=== PATIENT | female | born 1995 | race Caucasian/White ===

== ENCOUNTER 2018-10-17 12:15 | Emergency (ER) | payer OTHER ==
[~2018-10-17] VITALS: Ht 162.6 cm; Wt 50.0 kg
[2018-10-17 12:59] LABS: BASO % 0.3 % (0.0-1.0); EOS # 0.3 10^3/uL (0.0-0.50); EOS % 3.2 % (0.0-3.0); HEMATOCRIT 40.6 % (36.0-47.0); HEMOGLOBIN 13.5 g/dl (12.0-15.5); LYMPH % 22.9 % (24.0-44.0); MEAN CORPUSCULAR HEMOGLOBIN 29.6 pg (27.0-33.0); MEAN CORPUSCULAR HGB CONC 33.3 g/dl (32.0-36.5); MONO # 0.6 10^3/uL (0.0-0.8); MONO % 7.2 % (0.0-5.0); NEUTROPHILS # 5.8 10^3/uL (1.8-7.7); NEUTROPHILS % 66.2 % (36.0-66.0); PLATELET COUNT, AUTOMATED 241 10^3/uL (150-450); RED BLOOD COUNT 4.56 10^6/uL (4.00-5.40); WHITE BLOOD COUNT 8.7 10^3/uL (4.0-10.0)
[2018-10-17 13:43] LABS: BLOOD UREA NITROGEN 10 MG/DL (7-18); CALCIUM LEVEL 9.3 MG/DL (8.5-10.1); CARBON DIOXIDE LEVEL 27 MEQ/L (21-32); CHLORIDE LEVEL 109 MEQ/L (98-107); CREATININE FOR GFR 0.72 MG/DL (0.55-1.30); GLOMERULAR FILTRATION RATE > 60.0 (>60); GLUCOSE, FASTING 91 MG/DL (70-100); HCG, SERUM QUANTITATIVE 1680 MIU/ML; POTASSIUM SERUM 4.5 MEQ/L (3.5-5.1); SODIUM LEVEL 141 MEQ/L (136-145)
[2018-10-17 15:58] VITALS: BP 96/54
--- NOTE | 2018-10-19 16:32 | REP ---
First trimester, stat ultrasound for vaginal bleeding: The study is performed with transabdominal, endovaginal and Doppler ultrasound assessment: The bladder is not optimally distended. The uterus is anteverted and normal size measuring 8.5 x 4.7 x 6.2 cm. There is an intrauterine gestational sac containing a yolk sac but no pole, in the lower uterine segment just above the internal cervical os. This may represent spontaneous in progress. Right ovary: Right ovary is normal size measuring 2.6 x 2.0 x 3.9 cm. There is no dominant mass or cyst. There is vascular flow with the Doppler resistive index in the parenchymal arteries measuring 0.45. Left ovary: The left ovary is normal size measuring 2.6 x 1.7 x 2.4 cm. There is no dominant mass or cyst. There is vascular flow with the Doppler resistive index and the parenchymal arteries measuring 0.49. Impression: Intrauterine gestational sac with a yolk sac but no pole in the lower uterine segment just above this loss. The gestational sac in this location may represent spontaneous in progress. Follow-up is recommended. Electronically Signed by Antoine Longoria MD 10/17/2018 03:08 P
== END 2018-10-17 16:00 | disposition home or self-care (01) ==
LOC: M ED 12:15
DX: O20.0 Threatened abortion (principal); Z72.0 Tobacco use

== ENCOUNTER → 2018-10-19 | Outpatient (CLI) | payer OTHER | LOC: M LRY 12:41 | PROVIDERS: ATTEND Obstetrics & Gynecology | DX: O20.0 Threatened abortion (principal) ==

== ENCOUNTER → 2018-10-26 | Outpatient (CLI) | payer OTHER | LOC: M LRY 09:21 | PROVIDERS: ATTEND Advanced Practice Midwife | DX: O03.9 Complete or unspecified spontaneous abortion without complication (principal); Z3A.00 Weeks of gestation of pregnancy not specified ==

== ENCOUNTER → 2018-11-03 | Outpatient (CLI) | payer OTHER ==
[2018-11-03 15:02] LABS: FREE T4 0.95 NG/DL (0.76-1.46); THYROID STIMULATING HORMONE 0.758 uIU/ML (0.358-3.740)
== END ==
LOC: M LRY 09:38
PROVIDERS: ATTEND Advanced Practice Midwife
DX: O03.9 Complete or unspecified spontaneous abortion without complication (principal)

== ENCOUNTER → 2018-12-16 | Outpatient (CLI) | payer OTHER ==
[2018-12-16 17:51] LABS: BASO % 0.5 % (0.0-1.0); EOS # 0.2 10^3/uL (0.0-0.5); EOS % 3.5 % (0.0-3.0); HEMATOCRIT 38.8 % (36.0-47.0); HEMOGLOBIN 12.7 g/dl (12.0-15.5); LYMPH % 33.2 % (24.0-44.0); MEAN CORPUSCULAR HEMOGLOBIN 29.7 pg (27.0-33.0); MEAN CORPUSCULAR HGB CONC 32.7 g/dl (32.0-36.5); MEAN CORPUSCULAR VOLUME 90.9 fl (80.0-96.0); MONO # 0.4 10^3/uL (0.0-0.8); MONO % 7.3 % (0.0-5.0); NEUTROPHILS # 3.3 10^3/uL (1.5-8.5); NEUTROPHILS % 55.3 % (36.0-66.0); PLATELET COUNT, AUTOMATED 230 10^3/uL (150-450); RED BLOOD COUNT 4.27 10^6/uL (4.00-5.40)
[2018-12-16 18:04] LABS: ALBUMIN 4.4 GM/DL (3.2-5.2); ALT/SGPT 21 U/L (12-78); BILIRUBIN,TOTAL 0.4 MG/DL (0.2-1.0); BLOOD UREA NITROGEN 9 MG/DL (7-18); CALCIUM LEVEL 9.5 MG/DL (8.5-10.1); CARBON DIOXIDE LEVEL 28 MEQ/L (21-32); CHLORIDE LEVEL 106 MEQ/L (98-107); CREATININE FOR GFR 0.73 MG/DL (0.55-1.30); FREE T4 0.94 NG/DL (0.76-1.46); GLOMERULAR FILTRATION RATE > 60.0 (>60); GLUCOSE, FASTING 83 MG/DL (70-100); POTASSIUM SERUM 3.9 MEQ/L (3.5-5.1); SODIUM LEVEL 142 MEQ/L (136-145); THYROID STIMULATING HORMONE 0.819 uIU/ML (0.358-3.740); TOTAL 25(OH) VITAMIN D 34.5 NG/ML (30.0-100.0); TOTAL PROTEIN 7.5 GM/DL (6.4-8.2)
== END ==
LOC: M LRY 12:41
PROVIDERS: ATTEND Physician Assistant
DX: R53.83 Other fatigue (principal)

== ENCOUNTER → 2019-12-26 | Outpatient (CLI) | payer OTHER ==
[2019-12-26 18:41] LABS: FREE T4 1.01 NG/DL (0.76-1.46); THYROID PEROXIDASE ANTIBODY 32.3 U/ML (<60.0); THYROID STIMULATING HORMONE 0.752 uIU/ML (0.358-3.740)
== END ==
LOC: M PLALAB 14:20
PROVIDERS: ATTEND Nurse Practitioner Family
DX: E03.9 Hypothyroidism, unspecified (principal)

== ENCOUNTER → 2020-04-10 | Outpatient (CLI) | payer OTHER ==
[2020-04-10 14:28] LABS: FREE T4 0.84 NG/DL (0.76-1.46); THYROID STIMULATING HORMONE 1.14 uIU/ML (0.358-3.740)
== END ==
LOC: M PLALAB 09:13
PROVIDERS: ATTEND Nurse Practitioner Family
DX: E03.9 Hypothyroidism, unspecified (principal)

== ENCOUNTER 2021-01-24 15:12 | Emergency (ER) | payer OTHER ==
[~2021-01-24] VITALS: Ht 162.6 cm; Wt 49.1 kg
[2021-01-24 15:12] VITALS: BP 106/62
--- OUTSIDE RECORDS SUMMARY | 2021-01-24 15:16 | CCD | Continuity of Care Document ---
Author Author Monie JARVIS Organization Unknown Address [place] [address] Phone [phone] Care Team Providers Care Cloth Reeler Name Role Phone Sade Wade D.O. AUTM [phone] Torie Alfred M.D. AUTM [phone] Problems Active Problems Provider Date Cigarette smoker RENETTA Chairez Onset: 12/15/2018 Anxiety RENETTA Chairez Onset: 05/17/2020 Social History Type Date Description Comments Sex Unknown ETOH Use Denies alcohol use Recreational Drug Use Denies Drug Use Tobacco Use Start: Unknown End: Unknown Patient is a former smoker Smoking Status Reviewed: 06/20/20 Patient is a former smoker Exercise Type/Frequency Walks daily Sun Exposure Does not use sunscreen Seat Belt/Car Seat Always uses seat belt Allergies, Adverse Reactions, Alerts Description No Known Drug Allergies Medications Active Medications SIG Qnty Indications Ordering Provide r Date Pantoprazole Sodium 40mg Tablets D R 1 by mouth every day 90tabs K21.9 Radha MoncadaOAngeline 12/11 Meclizine HCL 25mg Tablets one tablet by mouth every 8 hours for dizziness as needed 42tabs H81.399 Sade Wade D.O. 12/11/2020 Alprazolam 0.25mg Tablets take 1 tablet by mouth daily as needed for anxiety istop [id number] 14tabs F41.1 Sade Abraham D.O. 05/17/2020 Immunizations Description No Information Available Vital Signs Date Vital Result Comment 12/11/2020 2:46pm BP Systolic 116 mmHg BP Diastolic 78 mmHg Height 64.1 inches 5'4.10" Weight 108.00 lb BMI (Body Mass Index) 18.5 kg/m2 Heart Rate 78 /min Respiratory Rate 18 /min Body Temperature 98.2 F O2 % BldC Oximetry 98 % [place] Body Weight 120 lb 06/20/2020 3:54pm BP Systolic 112 mmHg BP Diastolic 58 mmHg Height 64.1 inches 5'4.10" Weight 107.12 lb BMI (Body Mass Index) 18.3 kg/m2 Heart Rate 84 /min Respiratory Rate 18 /min Body Temperature 98.3 F O2 % BldC Oximetry 98 % [place] Body Weight 120 lb Results Description No Information Available Procedures Date Code Description Status 12/11/2020 12648 Office/Outpatient Established Lo w MDM 20-29 Min Completed 06/20/2020 42944 Preventive Visit Est 18-39 Yrs C ompleted Medical Devices Description No Information Available Encounters Type Date Location Provider Dx Diagnosis Office Visit 12/11/2020 2:40p [facility] RENETTA Villar K21.9 Gastro-esophageal reflux dis ease without esophagitis H81.399 Other peripheral vertigo, un specified ear Z13.29 Encounter for screening for oth suspected endocrine disorder Office Visit 06/20/2020 4:00p [facility] Sade Wade D.O. Z00.00 Encntr for general adult med ical exam w/o abnormal findings F41.1 Generalized anxiety disorder Z87.891 Personal history of nicotine dependence Z13.29 Encounter for screening for oth suspected endocrine disorder Z13.0 Encntr screen for dis [facility] Ass[facility] Date Code Description Provider 12/11/2020 K21.9 Gastro-esophageal reflux disease without esophagitis RENETTA Villar 12/11/2020 H81.399 Other peripheral vertigo, unspec ified ear RENETTA Villar 12/11/2020 Z13.29 Encounter for screen ing for other suspected endocrine disorder RENETTA Villar 06/20/2020 Z00.00 Encounter for genera l adult medical examination without abnormal findings Sade Wade D.O. 06/20/2020 F41.1 Generalized anxiety disorder Maryanne evelyn MendesMario-Jarad, D.O. 06/20/2020 Z87.891 Personal history of nicotine dep endence Sade Wade D.O. 06/20/2020 Z13.29 Encounter for screen ing for other suspected endocrine disorder Sade Wade D.O. 06/20/2020 Z13.0 Encounter for screen ing for diseases of the blood and blood- forming organs and certain disorders involving the immune mechanism Sade Wade D.O. Plan of Treatment Future Appointment(s):* 02/11/2021 10:20 am - RENETTA Villar at [facility] 12/11/2020 - RENETTA Villar* K21.9 Gastro-esophageal reflux disease without esophagitis* New Medication:* Pantoprazole Sodium 40 mg - 1 by mouth every day * Comments:* Work on dietary changes as we discussed as those are factors that can cause GERD. Please take Pantoprazole once a day on an empty stomach. * H81.399 Other peripheral vertigo, unspecified ear* New Medication:* Meclizine HCL 25 mg - one tablet by mouth every 8 hours for dizziness as needed * Comments:* Take Meclizine as needed for dizziness. * Z13.29 Encounter for screening for other suspected endocrine disorder* New Labs:* Basic Metabolic Profile, Scheduled: 12/11/20 * CBC With Differential, Scheduled: 12/11/20 * FT4&TSH Panel, Scheduled: 12/11/20 * Liver Profile, Scheduled: 12/11/20 * Vitamin D 25-Hydroxy, Scheduled: 12/11/20 * Comments:* Prior history of abnormal thyroid levels and will recheck levels to day to see if we need to start medications. Functional Status Description No Information Available Mental Status Description No Information Available Referrals Description No Information Available
--- OUTSIDE RECORDS SUMMARY | 2021-01-24 15:16 | CCD | Continuity of Care Document ---
Author Author Monie JARVIS Organization [place] [address] Phone [phone] Care Team Providers Care Starting Gate Driver Name Role Phone Sade Wade D.O. AUTM Torie Alfred M.D. AUTM [phone] Problems Active Problems Provider Date Cigarette smoker [...] mouth daily as needed for anxiety istop [id number] 14tabs F41.1 Sade Abraham D.O. 05/17/2020 Immunizations Description No Information Available Vital Signs Date Vital Result Comment 12/11/2020 2:46pm BP Systolic 116 mmHg BP Diastolic 78 mmHg Height 64.1 inches 5'4.10" Weight 108.00 lb BMI (Body Mass Index) 18.5 kg/m2 Heart Rate 78 /min Respiratory Rate 18 /min Body Temperature 98.2 F O2 % BldC Oximetry 98 % [place] Body Weight 120 lb 06/20/2020 3:54pm BP Systolic 112 mmHg BP Diastolic 58 mmHg Height 64.1 inches 5'4.10" Weight 107.12 lb BMI (Body Mass Index) 18.3 kg/m2 Heart Rate 84 /min Respiratory Rate 18 /min Body Temperature 98.3 F O2 % BldC Oximetry 98 % [place] Body Weight 120 lb Results Description No Information Available Procedures Date Code Description Status 06/20/2020 47300 Preventive Visit Est 18-39 Yrs C ompleted Medical Devices Description No Information Available Encounters Type Date Location Provider Dx Diagnosis Office Visit 06/20/2020 4:00p [facility] Sade Wade D.O. Z00.00 Encntr for general adult med ical exam w/o abnormal findings F41.1 Generalized anxiety disorder Z87.891 Personal history of nicotine dependence Z13.29 Encounter for screening for oth suspected endocrine disorder Z13.0 Encntr screen for dis of the bld/bld-form org/immun mechnsm Assessments Date Code Description Provider 12/11/2020 K21.9 Gastro-esophageal reflux disease without esophagitis RENETTA Villar 12/11/2020 H81.399 Other peripheral vertigo, unspec ified ear RENETTA Villar 12/11/2020 Z13.29 Encounter for screen ing for other suspected endocrine disorder RENTETA Villar 06/20/2020 Z00.00 Encounter for genera l adult medical examination without abnormal findings Sade Wade D.O. 06/20/2020 F41.1 Generalized anxiety disorder Maryanne evelyn Wade D.O. 06/20/2020 Z87.891 Personal history of nicotine dep endence Sade Wade D.O. 06/20/2020 Z13.29 Encounter for screen ing for other suspected endocrine disorder Sade Wade D.O. 06/20/2020 Z13.0 Encounter for screen ing for diseases of the blood and blood- forming organs and certain disorders involving the immune mechanism Sade Wade D.O. Plan of Treatment Future Appointment(s):* 02/11/2021 10:20 am - RENETTA Villar at [facility] 12/11/2020 - RENETTA Villar* K21.9 Gastro-esophageal reflux disease without esophagitis* New Medication:* Pantoprazole Sodium 40 mg - 1 by mouth every day * H81.399 Other peripheral vertigo, unspecified ear* New Medication:* Meclizine HCL 25 mg - one tablet by mouth every 8 hours for dizziness as needed * Z13.29 Encounter for screening for other suspected endocrine disorder* New Labs:* Basic Metabolic Profile, Scheduled: 12/11/20 * CBC With Differential, Scheduled: 12/11/20 * FT4&TSH Panel, Scheduled: 12/11/20 * Liver Profile, Scheduled: 12/11/20 * Vitamin D 25-Hydroxy, Scheduled: 12/11/20 Functional Status Description No Information Available Mental Status Description No Information Available Referrals Description No Information Available
--- OUTSIDE RECORDS SUMMARY | 2021-01-24 15:17 | CCD ---
Author Author [facility] Organization [facility] Address Unknown Phone Unavailable Care Team Providers Care Sugar Laboratory Assistant Name Role Phone MATTIE, B ELMO EXHIBIT DESIGNER Unavailable Unavailable MATTIE, B ELMO EXHIBIT DESIGNER Unavailable Unavailable MATTIE, B ELMO EXHIBIT DESIGNER Unavailable Unavailable MATTIE, B ELMO EXHIBIT DESIGNER Unavailable Unavailable MATTIE, B ELMO EXHIBIT DESIGNER Unavailable Unavailable MATTIE, B ELMO EXHIBIT DESIGNER Unavailable Unavailable MATTIE, B ELMO EXHIBIT DESIGNER Unavailable Unavailable MATTIE, B ELMO EXHIBIT DESIGNER Unavailable Unavailable MATTIE, B ELMO EXHIBIT DESIGNER Unavailable Unavailable MATTIE, B ELMO EXHIBIT DESIGNER Unavailable Unavailable MATTIE, B ELMO EXHIBIT DESIGNER Unavailable Unavailable MATTIE, B ELMO EXHIBIT DESIGNER Unavailable Unavailable MATTIE, B ELMO EXHIBIT DESIGNER Unavailable Unavailable MATTIE, B ELMO EXHIBIT DESIGNER Unavailable Unavailable MATTIE, B ELMO EXHIBIT DESIGNER Unavailable Unavailable MATTIE, B ELMO EXHIBIT DESIGNER Unavailable Unavailable MATTIE, B ELMO EXHIBIT DESIGNER Unavailable Unavailable MATTIE, B ELMO EXHIBIT DESIGNER Unavailable Unavailable MATTIE, B ELMO EXHIBIT DESIGNER Unavailable Unavailable MATTIE, B ELMO EXHIBIT DESIGNER Unavailable Unavailable MATTIE, B ELMO EXHIBIT DESIGNER Unavailable Unavailable MATTIE, B ELMO EXHIBIT DESIGNER Unavailable Unavailable MATTIE, B ELMO EXHIBIT DESIGNER Unavailable Unavailable MATTIE, B ELMO EXHIBIT DESIGNER Unavailable Unavailable MATTIE, B ELMO EXHIBIT DESIGNER Unavailable Unavailable MATTIE, B ELMO EXHIBIT DESIGNER Unavailable Unavailable MATTIE, B ELMO EXHIBIT DESIGNER Unavailable Unavailable MATTIE, B ELMO EXHIBIT DESIGNER Unavailable Unavailable MATTIE, B ELMO EXHIBIT DESIGNER Unavailable Unavailable MATTIE, B ELMO EXHIBIT DESIGNER Unavailable Unavailable MATTIE, B ELMO EXHIBIT DESIGNER Unavailable Unavailable MATTIE, B ELMO EXHIBIT DESIGNER Unavailable Unavailable MATTIE, B ELMO EXHIBIT DESIGNER Unavailable Unavailable MATTIE, B ELMO EXHIBIT DESIGNER Unavailable Unavailable MATTIE, B ELMO EXHIBIT DESIGNER Unavailable Unavailable MATTIE, B ELMO EXHIBIT DESIGNER Unavailable Unavailable MATTIE, B ELMO EXHIBIT DESIGNER Unavailable Unavailable MATTIE, B ELMO EXHIBIT DESIGNER Unavailable Unavailable MATTIE, B ELMO EXHIBIT DESIGNER Unavailable Unavailable MATTIE, B ELMO EXHIBIT DESIGNER Unavailable Unavailable MATTIE, B ELMO EXHIBIT DESIGNER Unavailable Unavailable MATTIE, B ELMO EXHIBIT DESIGNER Unavailable Unavailable MATTIE, B ELMO EXHIBIT DESIGNER Unavailable Unavailable MATTIE, B ELMO EXHIBIT DESIGNER Unavailable Unavailable MATTIE, B ELMO EXHIBIT DESIGNER Unavailable Unavailable MATTIE, B ELMO EXHIBIT DESIGNER Unavailable Unavailable MATTIE, B ELMO EXHIBIT DESIGNER Unavailable Unavailable MATTIE, B ELMO EXHIBIT DESIGNER Unavailable Unavailable MATTIE, B ELMO EXHIBIT DESIGNER Unavailable Unavailable MATTIE, B ELMO EXHIBIT DESIGNER Unavailable Unavailable MATTIE, B ELMO EXHIBIT DESIGNER Unavailable Unavailable MATTIE, B ELMO EXHIBIT DESIGNER Unavailable Unavailable MATTIE, B ELMO EXHIBIT DESIGNER Unavailable Unavailable MATTIE, B ELMO EXHIBIT DESIGNER Unavailable Unavailable MATTIE, B ELMO EXHIBIT DESIGNER Unavailable Unavailable MATTIE, B ELMO EXHIBIT DESIGNER Unavailable Unavailable MATTIE, B ELMO EXHIBIT DESIGNER Unavailable Unavailable MATTIE, B ELMO EXHIBIT DESIGNER Unavailable Unavailable MATTIE, B ELMO EXHIBIT DESIGNER Unavailable Unavailable MATTIE, B ELMO EXHIBIT DESIGNER Unavailable Unavailable MATTIE, B ELMO EXHIBIT DESIGNER Unavailable Unavailable MATTIE, B ELMO EXHIBIT DESIGNER Unavailable Unavailable LATRICE-EMIL, MARCOS DO Unavailable Unavailable LATRICE-EMIL, MARCOS DO Unavailable Unavailable LATRICE-EMIL, MARCOS DO Unavailable Unavailable LATRICE-EMIL, MARCOS DO Unavailable Unavailable LATRICE-EMIL, MARCOS DO Unavailable Unavailable LATRICE-EMIL, MARCOS DO Unavailable Unavailable LATRICE-EMIL, MARCOS DO Unavailable Unavailable LATRICE-EMIL, MARCOS DO Unavailable Unavailable LATRICE-EMIL, MARCOS DO Unavailable Unavailable LATRICE-EMIL, MARCOS DO Unavailable Unavailable LATRICE-EMIL, MARCOS DO Unavailable Unavailable LATRICE-EMIL, MARCOS DO Unavailable Unavailable LATRICE-EMIL, MARCOS DO Unavailable Unavailable LATRICE-EMIL, MARCOS DO Unavailable Unavailable LATRICE-EMIL, MARCOS DO Unavailable Unavailable LATRICE-EMIL, MARCOS DO Unavailable Unavailable LATRICE-EMIL, MARCOS DO Unavailable Unavailable LATRICE-EMIL, MARCOS DO Unavailable Unavailable LATRICE-EMIL, MARCOS DO Unavailable Unavailable LATRICE-EMIL, MARCOS DO Unavailable Unavailable LATRICE-EMIL, MARCOS DO Unavailable Unavailable LATRICE-EMIL, MARCOS DO Unavailable Unavailable LATRICE-EMIL, MARCOS DO Unavailable Unavailable LATRICE-EMIL, MARCOS DO Unavailable Unavailable LATRICE-EMIL, MARCOS DO Unavailable Unavailable LATRICE-EMIL, MARCOS DO Unavailable Unavailable LATRICE-EMIL, MARCOS DO Unavailable Unavailable LATRICE-EMIL, MARCOS DO Unavailable Unavailable LATRICE-EMIL, MARCOS DO Unavailable Unavailable LATRICE-EMIL, MARCOS DO Unavailable Unavailable LATRICE-EMIL, MARCOS DO Unavailable Unavailable LATRICE-EMIL, MARCOS DO Unavailable Unavailable LATRICE-EMIL, MARCOS DO Unavailable Unavailable LATRICE-EMIL, MARCOS DO Unavailable Unavailable LATRICE-EMIL, MARCOS DO Unavailable Unavailable LATRICE-EMIL, MARCOS DO Unavailable Unavailable LATRICE-EMIL, MARCOS DO Unavailable Unavailable LATRICE-EMIL, MARCOS DO Unavailable Unavailable LATRICE-EMIL, MARCOS DO Unavailable Unavailable LATRICE-EMIL, MARCOS DO Unavailable Unavailable LATRICE-EMIL, MARCOS DO Unavailable Unavailable LATRICE-EMIL, MARCOS DO Unavailable Unavailable LATRICE-EMIL, MARCOS DO Unavailable Unavailable LATRICE-EMIL, MARCOS DO Unavailable Unavailable LATRICE-EMIL, MARCOS DO Unavailable Unavailable LATRICE-EMIL, MARCOS DO Unavailable Unavailable LATRICE-EMIL, MARCOS DO Unavailable Unavailable LATRICE-EMIL, MARCOS DO Unavailable Unavailable LATRICE-EMIL, MARCOS DO Unavailable Unavailable LATRICE-EMIL, MARCOS DO Unavailable Unavailable LATRICE-EMIL, MARCOS DO Unavailable Unavailable LATRICE-EMIL, MARCOS DO Unavailable Unavailable LATRICE-EMIL, MARCOS DO Unavailable Unavailable LATRICE-EMIL, MARCOS DO Unavailable Unavailable LATRICE-EMIL, MARCOS DO Unavailable Unavailable LATRICE-EMIL, MARCOS DO Unavailable Unavailable LATRICE-EMIL, MARCOS DO Unavailable Unavailable LATRICE-EMIL, MARCOS DO Unavailable Unavailable LATRICE-EMIL, MARCOS DO Unavailable Unavailable LATRICE-EMIL, MARCOS DO Unavailable Unavailable LATRICE-EMIL, MARCOS DO Unavailable Unavailable LATRICE-EMIL, MARCOS DO Unavailable Unavailable LATRICE-EMIL, MARCOS DO Unavailable Unavailable LATRICE-EMIL, MARCOS DO Unavailable Unavailable LATRICE-EMIL, MARCOS DO Unavailable Unavailable LATRICE-EMIL, MARCOS DO Unavailable Unavailable LATRICE-EMIL, MARCOS DO Unavailable Unavailable LATRICE-EMIL, MARCOS DO Unavailable Unavailable LATRICE-EMIL, MARCOS DO Unavailable Unavailable LATRICE-EMIL, MARCOS DO Unavailable Unavailable LATRICE-EMIL, MARCOS DO Unavailable Unavailable LATRICE-EMIL, MARCOS DO Unavailable Unavailable LATRICE-EMIL, MARCOS DO Unavailable Unavailable LATRICE-EMIL, MARCOS DO Unavailable Unavailable LATRICE-EMIL, MARCOS DO Unavailable Unavailable LATRICE-EMIL, MARCOS DO Unavailable Unavailable LATRICE-EMIL, MARCOS DO Unavailable Unavailable LATRICE-EMIL, MARCOS DO Unavailable Unavailable LATRICE-EMIL, MARCOS DO Unavailable Unavailable LATRICE-EMIL, MARCOS DO Unavailable Unavailable LATRICE-EMIL, MARCOS DO Unavailable Unavailable LATRICE-EMIL, MARCOS DO Unavailable Unavailable LATRICE-EMIL, MARCOS DO Unavailable Unavailable LATRICE-EMIL, MARCOS DO Unavailable Unavailable Marina, Gabriele PA Unavailable Unavailable Marina, Gabriele PA Unavailable Unavailable Marina, Gabriele PA Unavailable Unavailable Marina, Gabriele PA Unavailable Unavailable Marina, Gabriele PA Unavailable Unavailable Marina, Gabriele PA Unavailable Unavailable Marina, Gabriele PA Unavailable Unavailable Marina, Gabriele PA Unavailable Unavailable Marina, Gabriele PA Unavailable Unavailable Marina, Gabriele PA Unavailable Unavailable Marina, Gabriele PA Unavailable Unavailable Marina, Gabriele PA Unavailable Unavailable Marina, Gabriele PA Unavailable Unavailable Marina, Gabriele PA Unavailable Unavailable Marina, Gabriele PA Unavailable Unavailable Marina, Gabriele PA Unavailable Unavailable Marina, Gabriele PA Unavailable Unavailable Marina, Gabriele PA Unavailable Unavailable Marina, Gabriele PA Unavailable Unavailable Marina, Gabriele PA Unavailable Unavailable Marina, Gabriele PA Unavailable Unavailable Marina, Gabriele PA Unavailable Unavailable Marina, Gabriele PA Unavailable Unavailable Marina, Gabriele PA Unavailable Unavailable Marina, Gabriele PA Unavailable Unavailable Marina, Gabriele PA Unavailable Unavailable Marina, Gabriele PA Unavailable Unavailable Marina, Gabriele PA Unavailable Unavailable Marina, Gabriele PA Unavailable Unavailable Marina, Gabriele PA Unavailable Unavailable Marina, Gabriele PA Unavailable Unavailable Marina, Gabriele PA Unavailable Unavailable Marina, Gabriele PA Unavailable Unavailable Marina, Gabriele PA Unavailable Unavailable Marina, Gabriele PA Unavailable Unavailable Marina, Gabriele PA Unavailable Unavailable Marina, Gabriele PA Unavailable Unavailable Marina, Gabriele PA Unavailable Unavailable Marina, Gabriele PA Unavailable Unavailable Marina, Gabriele PA Unavailable Unavailable Marina, Gabriele PA Unavailable Unavailable Marina, Gabriele PA Unavailable Unavailable Marina, Gabriele PA Unavailable Unavailable Marina, Gabriele PA Unavailable Unavailable Marina, Gabriele PA Unavailable Unavailable Marina, Gabriele PA Unavailable Unavailable Marina, Gabriele PA Unavailable Unavailable Marina, Gabriele PA Unavailable Unavailable Marina, Gabriele PA Unavailable Unavailable Marina, Gabriele PA Unavailable Unavailable Marina, Gabriele PA Unavailable Unavailable Marina, Gabriele PA Unavailable Unavailable Marina, Gabriele PA Unavailable Unavailable Marina, Gabriele PA Unavailable Unavailable O'kyle, A Richy PA Unavailable Unavailable O'kyle, A Richy PA Unavailable Unavailable O'kyle, A Richy PA Unavailable Unavailable O'kyle, A Richy PA Unavailable Unavailable O'kyle, A Richy PA Unavailable Unavailable O'kyle, A Richy PA Unavailable Unavailable O'kyle, A Richy PA Unavailable Unavailable O'kyle, A Richy PA Unavailable Unavailable O'kyle, A Richy PA Unavailable Unavailable O'kyle, A Richy PA Unavailable Unavailable O'kyle, A Richy PA Unavailable Unavailable O'kyle, A Richy PA Unavailable Unavailable O'kyle, A Richy PA Unavailable Unavailable O'kyle, A Richy PA Unavailable Unavailable O'kyle, A Richy PA Unavailable Unavailable O'kyle, A Richy PA Unavailable Unavailable O'kyle, A Richy PA Unavailable Unavailable O'kyle, A Richy PA Unavailable Unavailable O'kyle, A Richy PA Unavailable Unavailable O'kyle, A Richy PA Unavailable Unavailable O'kyle, A Richy PA Unavailable Unavailable O'kyle, A Richy PA Unavailable Unavailable O'kyle, A Richy PA Unavailable Unavailable O'kyle, A Richy PA Unavailable Unavailable O'kyle, A Richy PA Unavailable Unavailable O'kyle, A Richy PA Unavailable Unavailable O'kyle, A Richy PA Unavailable Unavailable O'kyle, A Richy PA Unavailable Unavailable O'kyle, A Richy PA Unavailable Unavailable O'kyle, A Richy PA Unavailable Unavailable O'kyle, A Richy PA Unavailable Unavailable O'kyle, A Richy PA Unavailable Unavailable O'kyle, A Richy PA Unavailable Unavailable Re-disclosure Warning The records that you are about to access may contain information from federally-assisted alcohol or drug abuse programs. If such information is present, then the following federally mandated warning applies: This information has been disclosed to you from records protected by federal confidentiality rules (42 CFR part 2). The federal rules prohibit you from making any further disclosure of this information unless further disclosure is expressly permitted by the written consent of the person to whom it pertains or as otherwise permitted by 42 CFR part 2. A general authorization for the release of medical or other information is NOT sufficient for this purpose. The Federal rules restrict any use of the information to criminally investigate or prosecute any alcohol or drug abuse patient.The records that you are about to access may contain highly sensitive health information, the redisclosure of which is protected by Article 27-F of the [facility] Public Health law. If you continue you may have access to information: Regarding HIV / AIDS; Provided by facilities licensed or operated by the [facility] Office of Mental Health; or Provided by the [facility] Office for People With Developmental Disabilities. If such information is present, then the following [facility] mandated warning applies: This information has been disclosed to you from confidential records which are protected by state law. State law prohibits you from making any further disclosure of this information without the specific written consent of the person to whom it pertains, or as otherwise permitted by law. Any unauthorized further disclosure in violation of state law may result in a fine or nursing home sentence or both. A general authorization for the release of medical or other information is NOT sufficient authorization for further disc losure. Encounters Encounter Providers Location Date Indications Data Source(s ) Outpatient Attender: Richy JACKSON [facility] 12/11/2020 02:40:00 PM EDT [facility] ([facility]) Outpatient Attender: MARCOS ALBA DO [facility] 06/20/2020 04:00:00 PM EDT [facility] ([facility]) Outpatient Attender: Gabriele JACKSON [facility] 05/17/2020 01:20:00 PM EST [facility] ([facility]) OFFICE OUTPATIENT VISIT 15 MINUTES Attender: ELMO PHELPS NP Physical Therapy 04/23/2020 01:15:00 PM EST [facility] ([facility]) OFFICE OUTPATIENT VISIT 15 MINUTES Attender: ELMO PHELPS NP Physical Therapy 01/10/2020 11:30:00 AM EDT [facility] ([facility]) Outpatient Attender: ELMO PHELPS NP Physical Therapy 01:45:00 PM EDT [facility] ([facility]) Outpatient Attender: Gabriele JACKSON [facility] 12/15/2019 01:40:00 PM EDT [facility] ([facility]) Medications Medication Brand Name Start Date Product Form Dose Route Admi nistrative Instructions Pharmacy Instructions Status Indications Reaction Description Data Source(s) pantoprazole 40 MG Delayed Release Oral Tablet Pantoprazole Sodium 12/11/2020 12:00:00 AM EDT ORAL active M [facility] ([facility]) Meclizine Hydrochloride 25 MG Oral Tablet Meclizine HCL 12/11/2020 12:00:00 AM EDT ORAL active [facility] ([facility]) Sertraline 25 MG Oral Tablet Sertraline HCL 05/17/2020 12:00:00 AM EST ORAL active [facility] ([facility]) Alprazolam 0.25 MG Oral Tablet Alprazolam 05/17/2020 12:00:00 AM EST ORAL active [facility] ([facility]) No Active Medications 12/15/2019 12:00:00 AM EDT completed [facility] ([facility]) Insurance Providers Payer name Policy type / Coverage type Policy ID Covered green party ID Covered green party's relationship to clemons Policy Clemons Plan Information [facility] [id number] SP [id number] [facility] [id number] Problems, Conditions, and Diagnoses Code Display Name Description Problem Type Effective Dates Data Source(s) [id number] Anxiety Anxiety Problem 05/17/2020 12:00:00 AM ES T [facility] ([facility]) Surgeries/Procedures Procedure Description Date Indications Data Source(s) OFFICE OUTPATIENT VISIT 15 MINUTES 12/11/2020 12:00:00 AM EDT [facility] ([facility]) PERIODIC PREVENTIVE MED EST PATIENT 18-39 YRS 06/21/19 12:00:00 AM EDT [facility] ([facility]) Results ID Date Data Source [id number] 04/10/2020 09:24:00 AM EST [facility] ([facility]) Name Value Range Interpretation Code Description Data Maribel rce(s) Supporting Document(s) Free T4 0.84 ng/dL 0.76-1.46 [facility] ([facility]) Thyroid Stimulating Hormone 1.140 uIU/ML 0.358-3.740 [facility] ([facility]) ID Date Data Source [id number] 12/26/2019 02:28:00 PM EDT [facility] ([facility]) Name Value Range Interpretation Code Description Data Maribel rce(s) Supporting Document(s) Thyroperoxidase Ab [Units/volume] in Serum or Plasma 32.3 U/ML [facility] ([facility]) ID Date Data Source [id number] 12/26/2019 02:28:00 PM EDT [facility] ([facility]) Name Value Range Interpretation Code Description Data Maribel rce(s) Supporting Document(s) Thyroid Stimulating Hormone 0.752 uIU/ML 0.358-3.740 [facility] ([facility]) Free T4 1.01 ng/dL 0.76-1.46 [facility] ([facility]) Procedure Social History Code Duration Value Status Description Data Source(s ) Smoking 06/20/2020 12:00:00 AM EDT Patient is a former smoker completed Patient is a former smoker [facility] ([facility]) Vital Signs ID Date Data Source UNK Name Value Range Interpretation Code Description Data Source(s) [place] body weight 120 [lb_av] 120 [lb_av] [facility] ([facility]) Oxygen saturation in Arterial blood by Pulse oximetry 98 % 98 % [facility] Systolic blood pressure 116 mm[Hg] 116 mm[Hg] [facility] Diastolic blood pressure 78 mm[Hg] 78 mm[Hg] [facility] ([facility]) Body height 64.1 [in_i] 64.1 [in_i] [facility] ([facility]) 5'4.10" Body weight 108.00 [lb_av] 108.00 [lb_av] [facility] ([facility]) Body mass index (BMI) [Ratio] 18.5 kg/m2 18.5 k g/m2 [facility] ([facility]) Heart rate 78 /min 78 /min [facility] ([facility]) Respiratory rate 18 /min 18 /min [facility] ( [facility]) Body temperature 98.2 [degF] 98.2 [degF] [facility] ([facility]) Body temperature 98.3 [degF] 98.3 [degF] [facility] ([facility]) [place] body weight 120 [lb_av] 120 [lb_av] [facility] ([facility]) Systolic blood pressure 112 mm[Hg] 112 mm[Hg] M [facility] ([facility]) Diastolic blood pressure 58 mm[Hg] 58 mm[Hg] [facility] ([facility]) Body height 64.1 [in_i] 64.1 [in_i] [facility] ([facility]) 5'4.10" Body weight 107.12 [lb_av] 107.12 [lb_av] [facility] ([facility]) Body mass index (BMI) [Ratio] 18.3 kg/m2 18.3 k g/m2 [facility] ([facility]) Heart rate 84 /min 84 /min [facility] ([facility]) Respiratory rate 18 /min 18 /min [facility] ( [facility]) Oxygen saturation in Arterial blood by Pulse oximetry 98 % 98 % [facility] ([facility]) Body mass index (BMI) [Ratio] 18.8 kg/m2 18.8 k g/m2 [facility] ([facility]) Respiratory rate 18 /min 18 /min [facility] ( [facility]) Body temperature 98.8 [degF] 98.8 [degF] [facility] ([facility]) Oxygen saturation in Arterial blood by Pulse oximetry 98 % 98 % [facility] ([facility]) Heart rate 90 /min 90 /min [facility] ([facility]) [place] body weight 120 [lb_av] 120 [lb_av] [facility] ([facility]) Body weight 110.12 [lb_av] 110.12 [lb_av] [facility] ([facility]) Systolic blood pressure 104 mm[Hg] 104 mm[Hg] M [facility] ([facility]) Diastolic blood pressure 58 mm[Hg] 58 mm[Hg] [facility] ([facility]) Body height 64.1 [in_i] 64.1 [in_i] [facility] ([facility]) 5'4.10" Systolic blood pressure 100 mm[Hg] 100 mm[Hg] [facility] ([facility] ) Diastolic blood pressure 72 mm[Hg] 72 mm[Hg] [facility] ([facility] Heart rate 113 /min 113 /min [facility] ([facility] Body temperature 97.3 [degF] 97.3 [degF] [facility] ([facility] Body height 64.75 [in_i] 64.75 [in_i] [facility] ([facility] 5'4.75" Body weight 108.38 [lb_av] 108.38 [lb_av] [facility] ([facility] Body mass index (BMI) [Ratio] 18.2 kg/m2 18.2 k g/m2 [facility] ([facility] ) Oxygen saturation in Arterial blood by Pulse oximetry 98 % 98 % [facility] ([facility] ) Oxygen saturation in Arterial blood by Pulse oximetry 98 % 98 % [facility] ([facility] ) Systolic blood pressure 122 mm[Hg] 122 mm[Hg] M [facility] ([facility]) Body mass index (BMI) [Ratio] 17.1 kg/m2 17.1 k g/m2 [facility] ([facility] ) Diastolic blood pressure 70 mm[Hg] 70 mm[Hg] [facility] ([facility]) Heart rate 113 /min 113 /min [facility] ([facility] Body temperature 97.1 [degF] 97.1 [degF] [facility] ([facility] Body height 64.75 [in_i] 64.75 [in_i] [facility] ([facility]) 5'4.75" Body weight 102.25 [lb_av] 102.25 [lb_av] [facility] ([facility]) Diastolic blood pressure 70 mm[Hg] 70 mm[Hg] [facility] ([facility]) Systolic blood pressure 122 mm[Hg] 122 mm[Hg] [facility] ([facility]) Heart rate 68 /min 68 /min [facility] ([facility]) Body temperature 97.5 [degF] 97.5 [degF] [facility] ([facility]) Body height 64.75 [in_i] 64.75 [in_i] [facility] ([facility]) 5'4.75" Body weight 109.00 [lb_av] 109.00 [lb_av] [facility] ([facility]) Body mass index (BMI) [Ratio] 18.3 kg/m2 18.3 k g/m2 [facility] ([facility] Diastolic blood pressure 60 mm[Hg] 60 mm[Hg] [facility] ([facility]) Body height 64.1 [in_i] 64.1 [in_i] [facility] ([facility]) 5'4.10" Body weight 106.38 [lb_av] 106.38 [lb_av] [facility] ([facility]) Body mass index (BMI) [Ratio] 18.2 kg/m2 18.2 k g/m2 [facility] ([facility]) Heart rate 97 /min 97 /min [facility] ([facility]) Respiratory rate 18 /min 18 /min [facility] ( [facility]) Body temperature 99.1 [degF] 99.1 [degF] [facility] ([facility]) Oxygen saturation in Arterial blood by Pulse oximetry 99 % 99 % [facility] ([facility]) [place] body weight 120 [lb_av] 120 [lb_av] [facility] ([facility]) Systolic blood pressure 100 mm[Hg] 100 mm[Hg] M [facility] ([facility])
[2021-01-25] MEDS ORDERED: ALPR0.25 PO (05:18)
[2021-01-25] MEDS ORDERED: PANT40TA29 PO (05:18)
[2021-01-25] MEDS ORDERED: ZOLO50TA PO (05:18)
== END 2021-01-24 23:28 | disposition left against medical advice (07) ==
LOC: M ED 15:12
DX: Z53.21 Procedure and treatment not carried out due to patient leaving prior to being seen by health care provider (principal)

== ENCOUNTER 2021-01-25 05:10 | Emergency (ER) | payer OTHER ==
[~2021-01-25] VITALS: Ht 162.6 cm; Wt 47.8 kg
[2021-01-25] MEDS ORDERED: PANT40TA29 PO (05:18)
[2021-01-25] MEDS ORDERED: ALPR0.25 PO (05:18)
[2021-01-25] MEDS ORDERED: ZOLO50TA PO (05:18)
[2021-01-25 09:24] LABS: BASO % 0.3 % (0.0-1.0); EOS # 0.1 10^3/uL (0.0-0.5); EOS % 1.4 % (0.0-3.0); HEMATOCRIT 42.1 % (36.0-47.0); LYMPH # 1.4 10^3/uL (1.5-5.0); MEAN CORPUSCULAR HEMOGLOBIN 29.2 pg (27.0-33.0); MEAN CORPUSCULAR HGB CONC 33.3 g/dl (32.0-36.5); MEAN CORPUSCULAR VOLUME 87.9 fl (80.0-96.0); MONO # 0.5 10^3/uL (0.0-0.8); MONO % 5.3 % (2.0-8.0); NEUTROPHILS # 7.1 10^3/uL (1.5-8.5); NEUTROPHILS % 77.8 % (36.0-66.0); PLATELET COUNT, AUTOMATED 300 10^3/uL (150-450); RED BLOOD COUNT 4.79 10^6/uL (4.00-5.40); WHITE BLOOD COUNT 9.2 10^3/uL (4.0-10.0)
[2021-01-25 10:08] LABS: ALBUMIN 4.4 GM/DL (3.2-5.2); ALT/SGPT 23 U/L (12-78); BILIRUBIN,DIRECT 0.1 MG/DL (0.0-0.2); BILIRUBIN,TOTAL 0.5 MG/DL (0.2-1.0); BLOOD UREA NITROGEN 10 MG/DL (7-18); CARBON DIOXIDE LEVEL 29 MEQ/L (21-32); CHLORIDE LEVEL 107 MEQ/L (98-107); CREATININE FOR GFR 0.79 MG/DL (0.55-1.30); FREE T4 1.07 NG/DL (0.76-1.46); GLOMERULAR FILTRATION RATE > 60.0 (>60); GLUCOSE, FASTING 96 MG/DL (70-100); HCG, SERUM QUANTITATIVE < 1.0 MIU/ML; LIPASE 69 U/L (73-393); POTASSIUM SERUM 4.2 MEQ/L (3.5-5.1); SODIUM LEVEL 141 MEQ/L (136-145); THYROID STIMULATING HORMONE 0.494 uIU/ML (0.358-3.740)
[2021-01-25] MEDS ORDERED: ONDANSETRON 4MG/2ML VIAL IV ONE (10:30)
[2021-01-25] MEDS ORDERED: KETOROLAC 30 MG/ML 1ML VIAL IV ONE (10:30)
[2021-01-25] MEDS ORDERED: NS 1,000 ML IV ONE (10:30)
[2021-01-25] MEDS ORDERED: FAMOTIDINE IV BAG 20 MG in IV 1 EA IV ONE (13:45)
[2021-01-25] MEDS ORDERED: METOCLOPRAMIDE INJ 10MG/2ML VIAL (J2765 PER 1) IV ONE (13:45)
[2021-01-25] MEDS: GASTROGRAFIN SOLUTION 30ML PO SCH ×2 (15:15→15:38)
[2021-01-25 15:48] VITALS: BP 101/60
--- NOTE | 2021-01-25 20:50 | ECGEPIP ---
[facility] - ED Test Date: 2021-01-25 Pat Name: CAROL BHAKTA Department: Room: - Gender: Female [employer]: SELENA : 1995 Requested By: ROMANA Dahl Order Number: [id number] Reading MD: Carol Avitia Measurements Intervals [place] Rate: 68 P: 73 [place]: 132 QRS: 61 QRSD: 72 T: 65 QT: 406 QTc: 431 Interpretive Statements Normal sinus rhythm with sinus arrhythmia No prior Electronically Signed on 01-25-2021 20:49:59 EDT by Carol Avitia
== END 2021-01-25 15:53 | disposition home or self-care (01) ==
LOC: M ED 05:10
DX: R51.9 Headache, unspecified (principal); Z79.899 Other long term (current) drug therapy; F17.210 Nicotine dependence, cigarettes, uncomplicated
CPT/HCPCS: 80048; 80076; 83690; 84439; 84443; 84702; 85025; 93005; 96361; 96365; 96375; 99284; J1885; J2405; J2765; Q9963

== ENCOUNTER 2021-01-31 10:02 | Emergency (ER) | payer OTHER ==
[~2021-01-31] VITALS: Ht 162.6 cm; Wt 46.4 kg
[~2021-01-31 10:02] MED LIST: ALPR0.25 PO; PANT40TA29 PO; ZOLO50TA PO
--- OUTSIDE RECORDS SUMMARY | 2021-01-31 10:08 | CCD | Continuity of Care Document ---
Author Author Monie WADE D.O. Organization Unknown Address [address] [place] [address] Phone [phone] Care Team Providers Care Inoculator Name Role Phone Sade Wade D.O. AUTM [phone] Torie Alfred M.D. AUTM [phone] Jus Madera M.D. AUTM [phone] Problems Active Problems Provider Date Cigarette smoker [...] Seat Belt/Car Seat Always uses seat belt Allergies and adverse reactions Description No Known Drug Allergies Medications Active Medications SIG Qnty Indications Ordering Provide r Date Zoloft 50mg Tablets 1 by mouth every day 90tabs Sarath Moncada.OAngeline 01/23/2021 Pantoprazole Sodium 40mg Tablets D R 1 by mouth every day 90tabs K21.9 Sarath Moncada.OAngeline 12/11 Meclizine HCL 25mg Tablets one tablet by mouth every 8 hours for dizziness as needed 42tabs H81.399 Radha MoncadaOAngeline 12/11/2020 Alprazolam 0.25mg Tablets take 1 tablet by mouth daily as needed for anxiety istop [id number] 14tabs F41.1 Sade Abraham D.O. 05/17/2020 Immunizations Description No Information Available Vital Signs Date Vital Result Comment 12/11/2020 2:46pm BP Systolic 116 mmHg BP Diastolic 78 mmHg Height 64.1 inches 5'4.10" Weight 108.00 lb BMI (Body Mass Index) 18.5 kg/m2 Heart Rate 78 /min Respiratory Rate 18 /min Body Temperature 98.2 F O2 % BldC Oximetry 98 % [place] Body Weight 120 lb 06/20/2020 3:54pm BP Systolic 112 mmHg BP Diastolic 58 mmHg Height 64.1 inches 5'4.10" Weight 107.12 lb BMI (Body Mass Index) 18.3 kg/m2 Heart Rate 84 /min Respiratory Rate 18 /min Body Temperature 98.3 F O2 % BldC Oximetry 98 % [place] Body Weight 120 lb Results Test Acquired Date Facility Test Result H/L Range Note HCG Urine Qual 01/26/2021 [facility] [place] [address] [phone] HCG Urine Qual NEGATIVE Normal: Negative HCG Urine QL [place] NEGATIVE Normal: Negative 1 Ua With Reflex To Ua Culture 01/26/2021 [facility] [place] [address] [phone] Ua Reflex To Ua Cult (SEE NOTE) 2 Source R Color yellow Normal: Yellow Clarity clear Normal: Clear Spec [place] 1.025 1.001 - 1.030 pH 6 5 - 9 Glucose NORM Normal: Negative Bilirubin NEG Normal: Negative Ketone 50 Abnormal Normal: Negative Protein NEG Normal: Negative Nitrite NEG Normal: Negative Blood NEG Normal: Negative Leuk Est NEG Normal: Negative Urobilinogen NOR less than 1.0 mg/dL Microscopic Not Indicate CBC W/Automated Diff 01/26/2021 [facility] [place] [address] [phone] CBC W/Automated Diff (SEE NOTE) 3 WBC 5.7 10^3/uL 4.2 - 11.0 RBC 4.51 10^6/uL 4.20 - 5.40 Hemoglobin 13.2 g/dL 12.0 - 16.0 Hematocrit 39.5 % 37.0 - 47.0 MCV 87.6 fL 81.0 - 101 MCH 29.3 pg 27.0 - 34.0 MCHC 33.4 g/dL 31.0 - 36.0 RDW 12.1 % 11.5 - 14.5 Platelets 260 10^3/uL 150 - 450 MPV 10.3 fL 7.4 - 10.4 Neut 63.4 % 37.0 - 80.0 Lymph 26.7 % 25.0 - 40.0 [place] 7.0 % 3.0 - 8.0 Eos 2.4 % 0.0 - 7.0 Baso 0.3 % 0.0 - 2.5 %Ig 0.2 % High 0.0 - 0.0 %NRBC 0.0 % 0.0 - 0.0 #Neut 3.62 10^3/uL 2.00 - 6.90 #Lymph 1.53 10^3/uL 0.60 - 3.40 #[place] 0.40 10^3/uL 0.00 - 0.90 #Eos 0.14 10^3/uL 0.00 - 0.70 #Baso 0.02 10^3/uL 0.00 - 0.20 #Ig 0.01 10^3/uL 0.00 - 0.10 #NRBC 0.00 10^3/uL 0.00 - 0.00 Manual Diff NOT INDICATED RBC Morph NOT INDICATED Comprehensive Metabolic Panel 01/26/2021 [facility] [place] [address] [phone] Comprehensive Metabo (SEE NOTE) 4 Sodium 141 mEq/L 134 - 153 Potassium 3.7 mEq/L 3.6 - 5.0 Chloride 104 mEq/L 98 - 107 Co2 26 mEq/L 22 - 30 Glucose 93 mg/dL 70 - 99 BUN 10 mg/dL 7 - 21 Creatinine 0.7 mg/dL 0.7 - 1.5 BUN/Creat 14 8 - 27 Total Protein 7.6 g/dL 6.3 - 8.2 Albumin 5.0 g/dL 3.9 - 5.0 Globulin 2.6 GM/DL 2.4 - 3.2 A/G Ratio 1.9 0.8 - 2.0 Calcium 10.1 mg/dL 8.4 - 10.2 Total Bili <0.7 mg/dL 0.2 - 1.3 Alkaline Phos 58 U/L 38 - 126 Sgot/Ast 18 U/L 5 - 40 SGPT/Alt 13 U/L 7 - 56 Anion Gap 11.0 mmol/L 8.0 - 16.0 Age 25 yrs Non-Aa GFR >60 mL/min Afr Amer GFR >60 mL/min 5 CBC With Differential 01/25/2021 [facility] Outpatient Monica ting (Registration) [address] [place] [address] [phone] White Blood Count 9.2 10 Normal 4.0-10.0 Red Blood Count 4.79 10 Normal 4.00-5.40 Hemoglobin 14.0 g/dL Normal 12.0-15.5 Hematocrit 42.1 % Normal 36.0-47.0 Mean Corpuscular Volume 87.9 fl Normal 80.0-96.0 Mean Corpuscular Hemoglobin 29.2 pg Normal 27.0-33.0 Mean Corpuscular HGB Conc 33.3 g/dL Normal 32.0-36.5 Red Cell Distribution Width 12.1 % Normal 11.5-14.5 Platelet Count, Automated 300 10 Normal 150-450 Neutrophils % 77.8 % High 36.0-66.0 Lymph % 15.0 % Low 24.0-44.0 [place] % 5.3 % Normal 2.0-8.0 Eos % 1.4 % Normal 0.0-3.0 Baso % 0.3 % Normal 0.0-1.0 Immature Granulocyte % 0.2 % Normal 0-3.0 Nucleated Red Blood Cell % 0.0 % Normal 0-0 Neutrophils # 7.1 10 Normal 1.5-8.5 Lymph # 1.4 10 Low 1.5-5.0 [place] # 0.5 10 Normal 0.0-0.8 Eos # 0.1 10 Normal 0.0-0.5 Baso # 0.0 10 Normal 0.0-0.2 Liver Profile 01/25/2021 [facility] Outpatient Testi ng (Registration) 0 [place] [address] [phone] Ast/Sgot 15 U/L Normal 7-37 Alt/SGPT 23 U/L Normal 12-78 Alkaline Phosphatase 62 U/L Normal 45-117 Bilirubin,Total 0.5 mg/dL Normal 0.2-1.0 Bilirubin,Direct 0.1 mg/dL Normal 0.0-0.2 Total Protein 8.0 GM/DL Normal 6.4-8.2 Albumin 4.4 GM/DL Normal 3.2-5.2 Albumin/Globulin Ratio 1.2 Normal 1.2-2.2 Basic Metabolic Profile 01/25/2021 [facility] Outpatient T esting (Registration) [address] [place] [address] [phone] Glucose, Fasting 96 mg/dL Normal 70-100 Blood Urea Nitrogen 10 mg/dL Normal 7-18 Creatinine For GFR 0.79 mg/dL Normal 0.55-1.30 Glomerular Filtration Rate > 60.0 Normal >60 6 Sodium Level 141 mEq/L Normal 136-145 Potassium Serum 4.2 mEq/L Normal 3.5-5.1 Chloride Level 107 mEq/L Normal 98-107 Carbon Dioxide Level 29 mEq/L Normal 21-32 Anion Gap 5 mEq/L Low 8-16 Calcium Level 10.0 mg/dL Normal 8.5-10.1 Laboratory test finding 01/25/2021 [facility] Outpatient T esting (Registration) [address] [place], [place] [address] [phone] Lipase 69 U/L Low 73-393 FT4&TSH Panel 01/25/2021 [facility] Outpatient Testi ng (Registration) [address] [place] [address] [phone] Thyroid Stimulating Hormone 0.494 uIU/ML Normal 0. 358-3.740 Free T4 1.07 ng/dL Normal 0.76-1.46 Laboratory test finding 01/25/2021 [facility] Outpatient T esting (Registration) [address] [place] [address] [phone] HCG, Serum Quantitative < 1.0 MIU/ML Normal 7 1 { KIT LOT # [id number] ) { KIT EXP DATE 04/22/22 ) { PROCEDURAL CONTROL VALID ) 2 URINALYSIS 3 COMPLETE BLOOD COUNT 4 COMPREHENSIVE METABOLIC PANE L 5 Male GFR Interprentation 20-49 yrs >60 mL/min Normal 50-59 yrs >56 mL/min Normal 60-69 yrs >49 mL/min Normal 70-79yrs >42 mL/min Normal 80 and above >35 mL/min Normal Female GFR Interpretation 20-39 yrs >60 mL/min Normal 40-49 yrs >58 mL/min Normal 50-59 yrs >51 mL/min Normal 60-69 yrs >45 mL/min Normal 70-79 yrs >39 mL/min Normal 80 and above >32 mL/min Normal 6 Units are mL/min/1.73 m2 Chronic Kidney Disease Staging per NKF: Stage I & II GFR >=60 Normal to Mildly Decreased Stage III GFR 30-59 Moderately Decreased Stage IV GFR 15-29 Severely Decreased Stage V GFR <15 Very Little GFR Left ESRD GFR <15 on WILDLIFE ECOLOGIST 7 GESTATIONAL AGE APPROXIMATE HCG RANGE (MIU/ML) - 0.2-1 WEEK 5-50 1-2 WEEKS 50-500 2-3 WEEKS 100-5,000 3-4 WEEKS 500-10,000 4-5 WEEKS 1,000-50,000 5-6 WEEKS 10,000-100,000 6-8 WEEKS 15,000-200,000 2-3 MONTHS 10,000-100,00 0 NON FEMALES LESS THAN 3.0 Patient samples may contain human heterophilic antibodies that could react with immunoassays to give falsely elevated or depressed results. This assay has been designed to minimize interference from heterophilic antibodies. Elevated hCG levels have also been associated with trophoblastic disease and nontrophoblastic neoplasms. The possibility of having these diseases should be considered before a diagnosis of is made. This test is not intended for use as a surrogate marker for aiding in the diagnosis or monitoring the treatment of cancer patients. Siemens [place] methodology. Procedures Date Code Description Status 12/11/2020 63268 Office/Outpatient Established w MDM 20-29 Min Completed Medical Devices Description No Information Available Encounters Type Date Location Provider Dx Diagnosis Office Visit 12/11/2020 2:40p Family Medicine [facility] RENETTA Villar K21.9 Gastro-esophageal reflux dis ease without esophagitis H81.399 Other peripheral vertigo, un specified ear Z13.29 Encounter for screening for oth suspected endocrine disorder Assessments Date Code Description Provider 12/11/2020 K21.9 Gastro-esophageal reflux disease without esophagitis RENETTA Villar 12/11/2020 H81.399 Other peripheral vertigo, unspec ified ear RENETTA Villar 12/11/2020 Z13.29 Encounter for screen ing for other suspected endocrine disorder RENETTA Villar Plan of Treatment Future Appointment(s):* 01/29/2021 9:30 am - RENETTA Vilalr at [facility] Functional Status Description No Information Available Mental Status Description No Information Available Referrals Refer to Reason for Referral Status Appt Date Jus Madera M.D. Ongoing abdominal pain, naus ea and only alleviated by not eating. She has had labs, ultrasound and CT without a reported clear cause of her symptoms. Please help in evaluation. Sent [facility] [address], [address] [place], [place] [address] [phone]
--- OUTSIDE RECORDS SUMMARY | 2021-01-31 10:08 | CCD | Continuity of Care Document ---
Author Author Monie WADE D.O. Organization Unknown Address [address] [place] [address] Phone [phone] Care Team Providers Care Operations Architect Name Role Phone Sade Wade D.O. AUTM Torie Alfred M.D. AUTM [phone] Jus Madera M.D. AUTM [phone] Problems Active Problems Provider Date Cigarette smoker [...] mouth daily as needed for anxiety istop [id number] 14tabs F41.1 Sade Abraham D.O. 05/17/2020 Immunizations Description No Information Available Vital Signs Date Vital Result Comment 12/11/2020 2:46pm BP Systolic 116 mmHg BP Diastolic 78 mmHg Height 64.1 inches 5'4.10" Weight 108.00 lb BMI (Body Mass Index) 18.5 kg/m2 Heart Rate 78 /min Respiratory Rate 18 /min Body Temperature 98.2 F O2 % BldC Oximetry 98 % [place] Body Weight 120 lb 06/20/2020 3:54pm BP Systolic 112 mmHg BP Diastolic 58 mmHg Height 64.1 inches 5'4.10" Weight 107.12 lb BMI (Body Mass Index) 18.3 kg/m2 Heart Rate 84 /min Respiratory Rate 18 /min Body Temperature 98.3 F O2 % BldC Oximetry 98 % [place] Body Weight 120 lb Results Test Acquired Date Facility Test Result H/L Range Note HCG Urine Qual 01/26/2021 [facility] [address] [phone] HCG Urine Qual NEGATIVE Normal: Negative HCG Urine QL [place] NEGATIVE Normal: Negative 1 Ua With Reflex To Ua Culture 01/26/2021 [facility] [place] [address] [phone] Ua Reflex To Ua Cult (SEE NOTE) 2 Source R Color yellow Normal: Yellow Clarity clear Normal: Clear Spec [place] 1.025 1.001 - 1.030 pH 6 5 - 9 Glucose NORM Normal: Negative Bilirubin NEG Normal: Negative Ketone 50 Abnormal Normal: Negative Protein NEG Normal: Negative Nitrite NEG Normal: Negative Blood NEG Normal: Negative Leuk Est NEG Normal: Negative Urobilinogen NOR less than 1.0 mg/dL Microscopic Not Indicate CBC W/Automated Diff 01/26/2021 [facility] [place] [address] [phone] CBC W/Automated Diff (SEE NOTE) 3 WBC [...] 80.0 Lymph 26.7 % 25.0 - 40.0 [place] 7.0 % 3.0 - 8.0 Eos 2.4 % 0.0 - 7.0 Baso 0.3 % 0.0 - 2.5 %Ig 0.2 % High 0.0 - 0.0 %NRBC 0.0 % 0.0 - 0.0 #Neut 3.62 10^3/uL 2.00 - 6.90 #Lymph 1.53 10^3/uL 0.60 - 3.40 #[place] 0.40 10^3/uL 0.00 - 0.90 #Eos 0.14 10^3/uL 0.00 - 0.70 #Baso 0.02 10^3/uL 0.00 - 0.20 #Ig 0.01 10^3/uL 0.00 - 0.10 #NRBC 0.00 10^3/uL 0.00 - 0.00 Manual Diff NOT INDICATED RBC Morph NOT INDICATED Comprehensive Metabolic Panel 01/26/2021 [facility] [place] [address] [phone] Comprehensive Metabo (SEE NOTE) 4 Sodium 141 [...] >60 mL/min 5 CBC With Differential 01/25/2021 [facility] Outpatient Monica ting (Registration) 0 [place] [address] [phone] White Blood Count 9.2 10 Normal 4.0-10.0 [...] 36.0-66.0 Lymph % 15.0 % Low 24.0-44.0 [place] % 5.3 % Normal 2.0-8.0 Eos % 1.4 % Normal 0.0-3.0 Baso % 0.3 % Normal 0.0-1.0 Immature Granulocyte % 0.2 % Normal 0-3.0 Nucleated Red Blood Cell % 0.0 % Normal 0-0 Neutrophils # 7.1 10 Normal 1.5-8.5 Lymph # 1.4 10 Low 1.5-5.0 [place] # 0.5 10 Normal 0.0-0.8 Eos # 0.1 10 Normal 0.0-0.5 Baso # 0.0 10 Normal 0.0-0.2 Liver Profile 01/25/2021 [facility] Outpatient Testi ng (Registration) 0 [place] [address] [phone] Ast/Sgot 15 U/L Normal 7-37 Alt/SGPT 23 U/L Normal 12-78 Alkaline Phosphatase 62 U/L Normal 45-117 Bilirubin,Total 0.5 mg/dL Normal 0.2-1.0 Bilirubin,Direct 0.1 mg/dL Normal 0.0-0.2 Total Protein 8.0 GM/DL Normal 6.4-8.2 Albumin 4.4 GM/DL Normal 3.2-5.2 Albumin/Globulin Ratio 1.2 Normal 1.2-2.2 Basic Metabolic Profile 01/25/2021 [facility] Outpatient T esting (Registration) [address] [place] [address] [phone] Glucose, Fasting 96 mg/dL Normal 70-100 Blood [...] mg/dL Normal 8.5-10.1 Laboratory test finding 01/25/2021 [facility] Outpatient T esting (Registration) [address] [place], [place] [address] [phone] Lipase 69 U/L Low 73-393 FT4&TSH Panel 01/25/2021 [facility] Outpatient Testi ng (Registration) [address] [place] [address] [phone] Thyroid Stimulating Hormone 0.494 uIU/ML Normal 0. 358-3.740 Free T4 1.07 ng/dL Normal 0.76-1.46 Laboratory test finding 01/25/2021 [facility] Outpatient T esting (Registration) [address] [place] [address] [phone] HCG, Serum Quantitative < 1.0 MIU/ML Normal 7 1 { KIT LOT # [id number] ) { KIT EXP DATE 04/22/22 ) [...] Little GFR Left ESRD GFR <15 on SENIOR ACCOUNTANT ANALYST 7 GESTATIONAL AGE APPROXIMATE HCG RANGE (MIU/ML) [...] monitoring the treatment of cancer patients. Siemens [place] methodology. Procedures Date Code Description Status 12/11/2020 17679 Office/Outpatient Established w MDM 20-29 Min Completed Medical Devices Description No Information Available Encounters Type Date Location Provider Dx Diagnosis Office Visit 12/11/2020 2:40p Family Medicine [facility] RENETTA Villar K21.9 Gastro-esophageal reflux dis [...] Future Appointment(s):* 01/29/2021 9:30 am - RENETTA Villar at [facility] Functional Status Description No Information Available Mental Status Description No Information Available Referrals Refer to Reason for Referral Status Appt Date Jus Madera M.D. Ongoing abdominal pain, naus ea and only alleviated by not eating. She has had labs, ultrasound and CT without a reported clear cause of her symptoms. Please help in evaluation. Sent [facility] [address], [address] [place], [place] [address] [phone]
--- OUTSIDE RECORDS SUMMARY | 2021-01-31 10:09 | CCD ---
Author Author [facility] Organization [facility] Address Unknown Phone Unavailable Care Team Providers Care Bone Puller Name Role Phone LATRICE-EMIL, MARCOS DO Unavailable Unavailable LATRICE-EMIL, MARCOS [...] Unavailable Unavailable LATRICE-EMIL, MARCOS DO Unavailable Unavailable LATRICE-EMLI, MARCOS DO Unavailable Unavailable LATRICE-EMIL, MARCOS DO [...] Unavailable LATRICE-EMIL, MARCOS DO Unavailable Unavailable LATRICE-EMIL, AMRCOS DO Unavailable Unavailable LATRICE-EMIL, MARCOS DO Unavailable [...] Unavailable Unavailable LATRICE-EMIL, MARCOS DO Unavailable Unavailable MATTIE, B ELMO POWER SYSTEMS ENGINEER Unavailable Unavailable MATTIE, B ELMO POWER SYSTEMS ENGINEER Unavailable Unavailable MATTIE, B ELMO POWER SYSTEMS ENGINEER Unavailable Unavailable MATTIE, B ELMO POWER SYSTEMS ENGINEER Unavailable Unavailable MATTIE, B ELMO POWER SYSTEMS ENGINEER Unavailable Unavailable MATTIE, B ELMO POWER SYSTEMS ENGINEER Unavailable Unavailable MATTIE, B ELMO POWER SYSTEMS ENGINEER Unavailable Unavailable MATTIE, B ELMO POWER SYSTEMS ENGINEER Unavailable Unavailable MATTIE, B ELMO POWER SYSTEMS ENGINEER Unavailable Unavailable MATTIE, B ELMO POWER SYSTEMS ENGINEER Unavailable Unavailable MATTIE, B ELMO POWER SYSTEMS ENGINEER Unavailable Unavailable MATTIE, B ELMO POWER SYSTEMS ENGINEER Unavailable Unavailable MATTIE, B ELMO POWER SYSTEMS ENGINEER Unavailable Unavailable MATTIE, B ELMO POWER SYSTEMS ENGINEER Unavailable Unavailable MATTIE, B ELMO POWER SYSTEMS ENGINEER Unavailable Unavailable MATTIE, B ELMO POWER SYSTEMS ENGINEER Unavailable Unavailable MATTIE, B ELMO POWER SYSTEMS ENGINEER Unavailable Unavailable MATTIE, B ELMO POWER SYSTEMS ENGINEER Unavailable Unavailable MATTIE, B ELMO POWER SYSTEMS ENGINEER Unavailable Unavailable MATTIE, B ELMO POWER SYSTEMS ENGINEER Unavailable Unavailable MATTIE, B ELMO POWER SYSTEMS ENGINEER Unavailable Unavailable MATTIE, B ELMO POWER SYSTEMS ENGINEER Unavailable Unavailable MATTIE, B ELMO POWER SYSTEMS ENGINEER Unavailable Unavailable MATTIE, B ELMO POWER SYSTEMS ENGINEER Unavailable Unavailable MATTIE, B ELMO POWER SYSTEMS ENGINEER Unavailable Unavailable MATTIE, B ELMO POWER SYSTEMS ENGINEER Unavailable Unavailable MATTIE, B ELMO POWER SYSTEMS ENGINEER Unavailable Unavailable MATTIE, B ELMO POWER SYSTEMS ENGINEER Unavailable Unavailable MATTIE, B ELMO POWER SYSTEMS ENGINEER Unavailable Unavailable MATTIE, B ELMO POWER SYSTEMS ENGINEER Unavailable Unavailable MATTIE, B ELMO POWER SYSTEMS ENGINEER Unavailable Unavailable MATTIE, B ELMO POWER SYSTEMS ENGINEER Unavailable Unavailable MATTIE, B ELMO POWER SYSTEMS ENGINEER Unavailable Unavailable MATTIE, B ELMO POWER SYSTEMS ENGINEER Unavailable Unavailable MATTIE, B ELMO POWER SYSTEMS ENGINEER Unavailable Unavailable MATTIE, B ELMO POWER SYSTEMS ENGINEER Unavailable Unavailable MATTIE, B ELMO POWER SYSTEMS ENGINEER Unavailable Unavailable MATTIE, B ELMO POWER SYSTEMS ENGINEER Unavailable Unavailable MATTIE, B ELMO POWER SYSTEMS ENGINEER Unavailable Unavailable MATTIE, B ELMO POWER SYSTEMS ENGINEER Unavailable Unavailable MATTIE, B ELMO POWER SYSTEMS ENGINEER Unavailable Unavailable MATTIE, B ELMO POWER SYSTEMS ENGINEER Unavailable Unavailable MATTIE, B ELMO POWER SYSTEMS ENGINEER Unavailable Unavailable MATTIE, B ELMO POWER SYSTEMS ENGINEER Unavailable Unavailable MATTIE, B ELMO POWER SYSTEMS ENGINEER Unavailable Unavailable MATTIE, B ELMO POWER SYSTEMS ENGINEER Unavailable Unavailable MATTIE, B ELMO POWER SYSTEMS ENGINEER Unavailable Unavailable MATTIE, B ELMO POWER SYSTEMS ENGINEER Unavailable Unavailable MATTIE, B ELMO POWER SYSTEMS ENGINEER Unavailable Unavailable MATTIE, B ELMO POWER SYSTEMS ENGINEER Unavailable Unavailable MATTIE, B ELMO POWER SYSTEMS ENGINEER Unavailable Unavailable MATTIE, B ELMO POWER SYSTEMS ENGINEER Unavailable Unavailable MATTIE, B ELMO POWER SYSTEMS ENGINEER Unavailable Unavailable MATTIE, B ELMO POWER SYSTEMS ENGINEER Unavailable Unavailable MATTIE, B ELMO POWER SYSTEMS ENGINEER Unavailable Unavailable MATTIE, B ELMO POWER SYSTEMS ENGINEER Unavailable Unavailable MATTIE, B ELMO POWER SYSTEMS ENGINEER Unavailable Unavailable MATTIE, B ELMO POWER SYSTEMS ENGINEER Unavailable Unavailable MATTIE, B ELMO POWER SYSTEMS ENGINEER Unavailable Unavailable MATTIE, B ELMO POWER SYSTEMS ENGINEER Unavailable Unavailable MATTIE, B ELMO POWER SYSTEMS ENGINEER Unavailable Unavailable MATTIE, B ELMO POWER SYSTEMS ENGINEER Unavailable Unavailable LATRICE-EMIL, MARCOS DO Unavailable Unavailable [...] Unavailable LATRICE-EMIL, MARCOS DO Unavailable Unavailable LATRICE-EMIL, AMRCOS DO Unavailable Unavailable LATRICE-EMIL, MARCOS DO Unavailable [...] A Richy PA Unavailable Unavailable O'kyle, A Ricyh PA Unavailable Unavailable O'kyle, A Richy PA [...] Unavailable O'kyle, A Richy PA Unavailable Unavailable CLAUDIA, L RUKHSANA MD Unavailable Unavailable CLAUDIA, L RUKHSANA MD Unavailable Unavailable CLAUDIA, L RUKHSANA MD Unavailable Unavailable CLAUDIA, L RUKHSANA MD Unavailable Unavailable CLAUDIA, L RUKHSANA MD Unavailable Unavailable CLAUDIA, L RUKHSANA MD Unavailable Unavailable CLAUDIA, L RUKHSANA MD Unavailable Unavailable CLAUDIA, L RUKHSANA MD Unavailable Unavailable CLAUDIA, L RUKHSANA MD Unavailable Unavailable CLAUDIA, L RUKHSANA MD Unavailable Unavailable CLAUDIA, L RUKHSANA MD Unavailable Unavailable CLAUDIA, L RUKHSANA MD Unavailable Unavailable CLAUDIA, L RUKHSANA MD Unavailable Unavailable CLAUDIA, L RUKHSANA MD Unavailable Unavailable CLAUDIA, L RUKHSANA MD Unavailable Unavailable CLAUDIA, L RUKHSANA MD Unavailable Unavailable CLAUDIA, L RUKHSANA MD Unavailable Unavailable CLAUDIA, L RUKHSANA MD Unavailable Unavailable CLAUDIA, L RUKHSANA MD Unavailable Unavailable CLAUDIA, L RUKHSANA MD Unavailable Unavailable Re-disclosure Warning The records that [...] is protected by Article 27-F of the [facility] Public Health law. If you continue you may have access to information: Regarding HIV / AIDS; Provided by facilities licensed or operated by the [facility] Office of Mental Health; or Provided by the [facility] Office for People With Developmental Disabilities. If such information is present, then the following [facility] mandated warning applies: This information has [...] law may result in a fine or usp sentence or both. A general authorization for the release of medical or other information is NOT sufficient authorization for further disc losure. Encounters Encounter Providers Location Date Indications Data Source(s ) Emergency Attender: RUKHSANA TAYLOR MDConsultant: MARCOS MEEKS DO 01/26/2021 10:07:00 PM EDT - 01/27/2021 12:21:00 AM EDT [facility] Patient discharged. Emergency Attender: RUKHSANA TAYLOR MDConsultant: MARCOS MEEKS DO 01/26/2021 12:00:00 PM EDT - 01/26/2021 08:00:00 PM EDT [facility] Patient discharged. Outpatient Attender: Richy JACKSON [facility] 12/11/2020 02:40:00 PM EDT [facility] ([facility]) Outpatient Attender: MARCOS ALBA DO [facility] 06/20/2020 04:00:00 PM EDT [facility] ([facility]) Outpatient Attender: Gabriele JACKSON [facility] 05/17/2020 01:20:00 PM EST [facility] ([facility]) OFFICE OUTPATIENT VISIT 15 MINUTES Attender: ELMO PHELPS NP Physical Therapy 04/23/2020 01:15:00 PM EST [facility] ([facility]) OFFICE OUTPATIENT VISIT 15 MINUTES Attender: ELMO PHELPS NP Physical Therapy 01/10/2020 11:30:00 AM EDT [facility] ([facility]) Outpatient Attender: ELMO PHELPS NP Physical Therapy 01:45:00 PM EDT [facility] ([facility]) Outpatient Attender: Gabriele JACKSON [facility] 12/15/2019 01:40:00 PM EDT [facility] ([facility]) Medications Medication Brand Name Start Date Product Form Dose Route Admi nistrative Instructions Pharmacy Instructions Status Indications Reaction Description Data Source(s) Sertraline 50 MG Oral Tablet [Zoloft] Zoloft 01/23/2021 12:00:00 AM EDT ORAL active [facility] ([facility]) pantoprazole 40 MG Delayed Release Oral Tablet Pantoprazole Sodium 12/11/2020 12:00:00 AM EDT ORAL active M [facility] ([facility]) Meclizine Hydrochloride 25 MG Oral Tablet Meclizine HCL 12/11/2020 12:00:00 AM EDT ORAL active [facility] ([facility]) Sertraline 25 MG Oral Tablet Sertraline HCL 05/17/2020 12:00:00 AM EST ORAL active [facility] ([facility]) Alprazolam 0.25 MG Oral Tablet Alprazolam 05/17/2020 12:00:00 AM EST ORAL active [facility] ([facility]) No Active Medications 12/15/2019 12:00:00 AM EDT completed [facility] ([facility]) Insurance Providers Payer name Policy type / Coverage type Policy ID Covered green party ID Covered green party's relationship to mullen Policy Mullen Plan Information [facility] [id number] [facility] [id number] 18 [id number] [facility] [id number] Problems, Conditions, and Diagnoses Code Display Name Description Problem Type Effective Dates Data Source(s) 02114429 Anxiety Anxiety Problem 05/17/2020 12:00:00 AM ES T [facility] ([facility]) Surgeries/Procedures Procedure Description Date Indications Data Source(s) OFFICE OUTPATIENT VISIT 15 MINUTES 12/11/2020 12:00:00 AM EDT [facility] ([facility]) PERIODIC PREVENTIVE MED EST PATIENT 18-39 YRS 06/21/19 12:00:00 AM EDT [facility] ([facility]) Results ID Date Data Source [id number] 01/28/2021 10:41:00 [place] [address] PHONE: [phone] FAX: [phone] Name ..............: YONY MEDINA MAcct Number ........................: [id number] ROOM. ............: TR-04 MR Number ............................: [id number] Stay type.........: E/R Discharge Date...............:01/26/21 Admit Date .....: 01/26/21 Admit Phys .............................: ........................COONEYNORM Date of ..: 1995 Family Phys ...........................: ........................[employer] Phone..............: [phone] Age.................................:25 Film# ...............:[id number] Sex.................................:F Unsigned transcriptions are preliminary reports and do [place] [id number] COMPLETE:01/27/21 01:11 CLC 47528 Please See Scanned Results. Name Value Range Interpretation Code Description Data Maribel rce(s) Supporting Document(s) ID Date Data Source [id number] 01/27/2021 09:30:00 PM EST [facility] [address] [place] [address] PHONE: [phone] FAX: [phone] Name .................. : YONY Santos Acct Number.................. : [id number] ROOM. ................. : TR-08 MR Number ................... : [id number] Stay type ............. : E/R Discharge Date......... ... : 01/27/21 Admit Date ......... : 01/26/21 Admit Phys .................... : COONEYNO Date of ....... : 1995 Family Phys ................... : [employer] Phone .................. : [phone] Age ................................ : 25 Film# .................. .:[id number] Sex ................................. : F Unsigned transcriptions are preliminary reports and do not represent a medical or legal document CT ABD & PELVIS W/ IV ONLY [id number] COMPLETE:01/27/21 01:24 [facility] [address] Reason(s): GI Bleed CT ABDOMEN AND PELVIS WITH ORAL AND IV CONTRAST INDICATION: GI bleed COMPARISON: None IV CONTRAST: 75 cc Isovue-370 One or more of the following dose reduction techniques were utilized in effectively lowering the radiation dose for this examination: Automated Exposure Control, Adjustment of the mA and/or kV according to patient size, or Iterative reconstruction. FINDINGS: LUNG BASES: No pulmonary nodules or masses. No pleural effusions. LIVER/BILIARY: The liver is unremarkable. No abnormalities are seen in the gallbladder. The bile ducts are not dilated. SPLEEN: Normal. PANCREAS: Normal. ADRENALS: Normal bilaterally. RIGHT KIDNEY: No hydronephrosis, stones or masses. LEFT KIDNEY: No hydronephrosis, stones or masses. OTHER : No abnormalities seen in the urinary bladder. No significant abnormalities seen in the reproductive organs. BOWEL/GI: No dilated bowel or obstruction. No bowel wall thickening. No mass identified. Page 1 of 2 [facility] [address] [place] [address] PHONE: [phone] FAX: [phone] Name .................. : YONY Santos Acct Number.................. : [id number] ROOM. ................. : TR08 MR Number ................... : [id number] Stay type ............. : E/R Discharge Date......... ... : 01/27/21 Admit Date ......... : 01/26/21 Admit Phys .................... : [facility] Date of ....... : 1995 Family Phys ................... : [email or web address] Phone .................. : [phone] Age ................................ : 25 Film# .................. .:[id number] Sex ................................. : F Unsigned transcriptions are preliminary reports and do not represent a medical or legal document CT ABD & PELVIS W/ IV ONLY [id number] COMPLETE:01/27/21 01:24 [facility] [address] Reason(s): GI Bleed Appendix is seen and is normal. No hernia. Cannot adequately evaluate for active extravasation of contrast into the bowel due to the presence of oral contrast. PERITONEUM: No free fluid, focal fluid collection or free air. NODES: No enlarged lymph nodes. RETROPERITONEUM: No masses. No AAA. SKELETAL: Within normal limits. IMPRESSION: Negative study. Electronically Reviewed and Signed By Juan Turpin MD , 01/27/21 21:30, NAJMA Transcribe Initials: DANIEL , Transcribe Date: 01/27/21 13:34, Dictation Date: Copy for: EMERGENCY DEPT via modem Copy for: 710 MED REC DISCHARGED Page 2 of 2 Name Value Range Interpretation Code Description Data Maribel rce(s) Supporting Document(s) ID Date Data Source [id number] 01/26/2021 12:00:00 PM EDT [facility] 1 OrderSheet [facility] Emergency Department [address] [place] [address] Phone #: ext- [phone] 01/26/2021 11:59 Patient: MONIE PRUITT Sex: F : 1995 Age: 25yWEIGHT:47.6 kg (S) HEIGHT:64 inches (S) BMI:18.0ALLERGIES: No Known Drug AllergyCHIEF COMPLAINT: abdominal painDIAGNOSIS: Abdominal pain, Gastroesophageal reflux diseaseLAB ORDERSOrder Description Priority Entered Acknowledged InitialedCB w Diff STAT 12:14 01/26/2021 Ack'd: 12:14 12:16 Jeff Aguilar Jennifer Putnam, Rosmery OneilN. R.N.; Verbal order R.N. per; Rukhsana Taylor MDCMP STAT 12:14 01/26/2021 Ack'd: 12:14 12:16 Jeff, Jeff, Rosmery Aguilar, Rosmery Botello R.N. R.N.; Verbal order R.N. per; Rukhsana Taylor MDUA Reflex to UA STAT 12:14 01/26/2021 Ack'd: 12:14 13:02 [place],Culture Et[place], Rosmery [place], Rosmery Botello R.N. R.N.; Verbal order R.N. per; Rukhsana Taylor MDHCG Urine Qual STAT 12:14 01/26/2021 Ack'd: 12:14 13:02 [place], [place], Rosmery [place]ow[place], Rosmery Botello R.N. R.N.; Verbal order R.N. per; Rukhsana Taylor MDDIAGNOSTIC STUDY ORDERSOrder Description Priority Entered Acknowledged InitialedMEDICATION/IV/DRIP/FLUID ORDERSOrder Description Priority Entered Acknowledged InitialedZofran ODT PO 4 19:53 01/26/2021 Ack'd: 19:57 20:06 Wili, (NOW x1) Rukhsana Taylor MD; Vandana RasheedNAngeline R.NAngelineGENERAL ORDERS 2 OrderSheet [facility] Emergency Department [address] [place] [address] Phone #: ext- [phone] 01/26/2021 11:59 Patient: MONIE PRUITT Sex: F : 1995 Age: 25yOrder Description Priority Entered Acknowledged InitialedEKG 13:01 01/26/2021 13:02 Jeff Aguilar, Rosmery Botello R.N. R.N.; Verbal order per; Rukhsana Taylor MD[Electronically signed by Vandana Rasheed R.N. (20:21 01/26/2021)][Electronically signed by Rukhsana Taylor MD (09:24 01/27/2021)][Electronically locked by Vandana Rasheed R.N. (20:21 01/26/2021)] Name Value Range Interpretation Code Description Data [facility](s) Supporting Document(s) ID Date Data Source [id number] 01/26/2021 12:00:00 PM EDT [facility] 1 Medication Reconciliation Report [facility] Emergency Department [address] [place] [address] Phone #: ext- [phone] 01/26/2021 11:59 Patient: MONIE PRUITT Sex: F : 1995 Age: 25yWeight: 47.6 kgHeight/Length: 64 in.BMI: 18.0ALLERGIES: No Known Drug AllergyThe patient's Home Medications are listed below:CONTINUE TAKING THE FOLLOWING MEDICATIONS: Pantoprazole Sodium Oral 40 mg, dailyThe source(s) of the original Home Medication information:patientThe following Medications were given to the patient in the Emergency Department:Zofran ODT [PO] PO 4 mg, administered: 19:51 01/26/2021The following Medications were prescribed to the patient:None. Name Value Range Interpretation Code Description Data [facility](s) Supporting Document(s) ID Date Data Source [id number] 01/26/2021 12:00:00 PM EDT [facility] 1 Medication Administration Record [facility] Emergency Department [address] [place] [address] Phone #: ozl- [phone] 01/26/2021 11:59 Patient: MONIE PRUITT Sex: F : 1995 Age: 25yWeight: 47.6 kgHeight/Length: 64 inBMI: 18ALLERGIES: No Known Drug Allergy Date/Time Medication Administered Medication OrderedGiven ZOFRAN ODT [PO] (ONDANSETRON Zofran ODT PO 4 mg (NOW x1)19:51 01/26/2021 HCL)Vandana Rasheed R.N. Dose: 4 mg Oral Disintegrating Tablets PO Name Value Range Interpretation Code Description Data Maribel rce(s) Supporting Document(s) ID Date Data Source [id number] 01/26/2021 12:00:00 PM EDT [facility] 1 General Instructions [facility] Emergency Department [address] [place] [address] Phone #: ext- [phone] 01/26/2021 11:59 Patient: MONIE PRUITT Sex: F : 1995 Age: 25yAcute right upper quadrant, epigastric, right lower quadrant and left lower quadrant abdominal pain.Gastroesophageal reflux disease. No esophagitis.INSTRUCTIONSDrink plenty of fluids.(Avoid spicy, greasy, fatty foods. return if worse or any new symptoms. It is important to follow up withyour primary care physician. I recommend you get an ultrasound of your gallbladder and your pelvis tolook at your ovaries. please take tylenol and motrin for pain. Take the zofran for nausea/vomiting.continue to take your prilosec for reflux.).Warnings: Further evaluation is necessary.GENERAL WARNINGS: Return or contact your physician immediately if your condition worsens orchanges unexpectedly, if not improving as expected, or if other problems arise.Your Current Medications: Your current home medications have been reviewed.CONTINUE TAKING THE FOLLOWING MEDICATIONS:Pantoprazole Sodium Oral : 40 mg daily.Follow-up:Follow up with your doctor Sy even if well. Call for an appointment. Reason for referral: evaluation.Summary of care provided to patient via paper.Understanding of the discharge instructions verbalized by patient. ADDITIONAL INFORMATIONUnknown Causes of Abdominal Pain (Female) 2 General Instructions [facility] Emergency Department [address] [place] [address] Phone #: ext- [phone] 01/26/2021 11:59 Patient: MONIE PRUITT Sex: F : 1995 Age: 25yThe exact cause of your belly (abdominal) pain is not clear. This does not mean that this is somethingto worry about. Everyone likes to know the exact cause of the problem. But sometimes with bellypain, there is no clear- cut cause, and this could be a good thing. The good news is that yoursymptoms can be treated, and you will feel better.Your condition does not seem serious now. But sometimes the signs of a serious problem may takemore time to appear. For this reason, it is important for you to watch for any new symptoms,problems, or worsening of your condition.Over the next few days, the abdominal pain may come and go. Or it may be constant. Other commonsymptoms can include nausea and vomiting. Sometimes it can be difficult to tell if you feel nauseous.You may just feel bad and not connect that feeling to nausea. Constipation, diarrhea, and a fever maygo along with the pain.The pain may continue even if treated correctly over the following days. Depending on how things go,sometimes the cause can become clear and may need more or different treatment. Additionalevaluations, medicines, or tests may also be needed.Home careYour healthcare provider may prescribe medicine for pain, symptoms, or an infection. Follow thehealthcare provider's instructions for taking these medicines. 3 General Instructions [facility] Emergency Department [address] [place] [address] Phone #: ext- [phone] 01/26/2021 11:59 [id number] Sex[facility] F : 1995 Age: 25yGeneral care Rest as much as you can until your next exam. No strenuous activities. Try to find positions that ease discomfort. A small pillow placed on the abdomen may help relieve pain. Something warm on your abdomen (such as a heating pad) may help, but be careful not to burn yourself.Diet Don't force yourself to eat, especially if having cramps, vomiting, or diarrhea. Water is important so you don't get dehydrated. Soup may also be good. Sports drinks may also help, especially if they are not too acidic. Don't drink sugary drinks as this can make things worse. Take liquids in small amounts. Don't guzzle them. Caffeine sometimes makes the pain and cramping worse. Don't take dairy products if you have vomiting or diarrhea. Don't eat large amounts at a time. Wait a few minutes between bites. Eat a diet low in fiber (called a low-residue diet). Foods allowed include refined breads, white rice, fruit and vegetable juices without pulp, tender meats. These foods will pass more easily through the intestine. Don't have whole-grain foods, whole fruits and vegetables, meats, seeds and nuts, fried or fatty foods, dairy, alcohol and spicy foods until your symptoms go away.Follow-up careFollow up with your healthcare provider, or as advised, if your pain does not begin to improve in thenext 24 hours.Call [phone] if any of these occur: Trouble breathing Confusion Fainting or loss of consciousness Rapid heart rate 4 General Instructions [facility] Emergency Department [address] [place] [address] Phone #: ext- [phone] 01/26/2021 11:59 Patient: MONIE PRUITT Sex: F : 1995 Age: 25y SeizureWhen to seek medical adviceCall your healthcare provider right away if any of these occur: Pain gets worse or moves to the right lower abdomen New or worsening vomiting or diarrhea Swelling of the abdomen Unable to pass stool for more than 3 days Fever of 100.4F (38C) or higher, or as directed by your healthcare provider. Blood in vomit or bowel movements (dark red or black color) Yellow color of eyes and skin (jaundice) Weakness, dizziness Chest, arm, back, neck, or jaw pain Unexpected vaginal bleeding or missed period Can't keep down liquids or water and you are getting dehydrated [id number] [employer]. [address] [place] [address]. All rights reserved. This information is not intended as asubstitute for professional medic al care. Always follow your healthcare professional's instructions.GERD (Adult) 5 General Instructions [facility] Emergency Department [address] [place] [address] Phone #: ext- [phone] 01/26/2021 11:59 Patient: MONIE PRUITT Sex: F : 1995 Age: 25y The esophagus is a tube that carries food from the mouthto the stomach. A valve (the LES, lower esophageal sphincter) at the lower end of the esophagusprevents stomach acid from flowing upward. When this valve doesn't work properly, stomach contentsmay repeatedly flow back up (reflux) into the esophagus. This is called gastroesophageal refluxdisease (GERD). GERD can irritate the esophagus. It can cause problems with pain, swallowing orbreathing. In severe cases, GERD can cause recurrent pneumonia (from aspiration or breathing inparticles) or other serious problems.Symptoms of reflux include burning, pressure or sharp pain in the upper abdomen or mid to lowerchest. The pain can spread to the neck, back, or shoulder. There may be belching, an acid taste inthe back of the throat, chronic cough, or sore throat, or hoarseness. GERD symptoms often occurduring the day after a big meal. They can also occur at night when lying down.Home careLifestyle changes can help reduce symptoms. If needed, your healthcare provider may prescribemedicines. Symptoms often improve with treatment, but if treatment is stopped, the symptoms oftenreturn after a few months. So most persons with GERD will need to continue treatment or gettreatment on and off.Lifestyle changes 6 General Instructions [facility] Emergency Department [address] [place] [address] Phone #: ext- [phone] 01/26/2021 11:59 Patient: MONIE PRUITT Sex: F : 1995 Age: 25y Limit or avoid fatty, fried, and spicy foods, as well as coffee, chocolate, mint, and foods with high acid content such as tomatoes and citrus fruit and juices (orange, grapefruit, lemon). Don't eat large meals, especially at night. Frequent, smaller meals are best. Don't lie down right after eating. And don't eat anything 3 hours before going to bed. Don't drink alcohol or smoke. As much as possible, stay away from second hand smoke. If you are overweight, losing weight will reduce symptoms. Don't wear tight clothing around your stomach area. If your symptoms occur during sleep, use a foam we dge to elevate your upper body (not just your head.) Or, place 4" blocks under the head of your bed. Or use 2 bed risers under your bedframe.MedicinesIf needed, medicines can help relieve the symptoms of GERD and prevent damage to the esophagus.Discuss a medicine plan with your healthcare provider. This may include one or more of the followingmedicines: Antacids to help neutralize the normal acids in your stomach. Acid blockers (Histamine or H2 blockers) to decrease acid production. Acid inhibitors (proton pump inhibitors PPIs) to decrease acid production in a different way than the blockers. They may work better, but can take a little longer to take effect.Take an antacid 30 to 60 minutes after eating and at bedtime, but not at the same time as an acidblocker.Try not to take medicines such as ibuprofen and aspirin. If you are taking aspirin for your heart orother medical reasons, talk to your healthcare provider about stopping it.Follow-up careFollow up with your healthca re provider or as advised by our staff.When to seek medical adviceCall your healthcare provider if any of the following occur: Stomach pain gets worse or moves to the lower right abdomen (appendix area) Chest pain appears or gets worse, or spreads to the back, neck, shoulder, or arm An [id number]-[id number] trial of medicine doesn't relieve your symptoms 7 General Instructions [facility] Emergency Department [address] [place] [address] Phone #: ext- [phone] 01/26/2021 11:59 Patient: MONIE PRUITT Sex: F : 1995 Age: 25y Weight loss that can't be explained Trouble or pain swallowing Frequent vomiting (can't keep down liquids) Blood in the stool or vomit (red or black in color) Feeling weak or dizzy Fever of 100.4F (38C) or higher, or as directed by your healthcare provider [phone] [employer]. [address] [place] [address], [place] [address]. All rights reserved. This information is not intended as asubstitute for professional medical care. Always follow your healthcare professional's instructions. You have been given the following additional information: Abdominal Pain, Unknown Cause, (Female) GERD (Adult)(Electronically signed by Rukhsana Taylor MD 01/27/2021 09:24) Name Value Range Interpretation Code Description Data Maribel rce(s) Supporting Document(s) ID Date Data Source [id number] 01/26/2021 12:00:00 PM EDT [facility] 1 Clinical Report - Nurses [facility] Emergency Department [address] [place] [address] Phone #: ext- [phone] 01/26/2021 11:59 Patient: MONIE PRUITT Sex: F : 1995 Age: 25yTRIAGEArrived by private vehicle. Historian: patient. Accompanied by spouse (Dropped off).Triage time: 12:07 01/26/2021. Acuity: LEVEL 3.Chief Complaint: ABDOMINAL PAIN.Alert. No acute distress.Onset. (4 days ago). ( Pt states 4 days ago she woke up and ate cereal, started feeling nauseous (ptstates this is normal for her with GERD), however then pt states she started getting dizzy and pale, ptstates "i have fainted twice", 2 days ago and went to [facility] yesterday and was told she was dehydratedfrom her GERD and was instructed to come back if symptoms got worse; Pt states she was d/c from thereand "now feels worse", with stomach cramping, decreased urine output; Pt states she was able to eatpizza last night and vomited this morning and ate cereal this morning and vomited. Pt then got superdizzy this morning and decided to come to ER.). She has had nausea and vomiting.Treatment DIRECTOR [employer]:(Pantoprazole last dose at 1000;).SEPSIS SCREEN: SIRS SCREEN NEGATIVE. SEPSIS SCREEN NEGATIVE. No suspected or confirmedsigns of infection present. (12:14 01/26/2021). --12:14 01/26/21 Rosmery Aguilar R.N.12:07 01/26/21. BP: 106/67. MAP: 80. HR: 79. RR: 18. O2 saturation: 98% on room air. Temp: 97.8 F.Pain level now: 08/30. --12:14 01/26/21 Rosmery Aguilar R.N.Weight: 47.6 kg stated. Height/Length: 64 inches Per Patient. BMI: 18. --12:01/26/21 Rosmery Aguilar R.N.MedicationsPantoprazole Sodium Oral 40 mg, daily. --12:01/26/21 Rosmery Aguilar R.N.AllergiesNo Known Drug Allergy. --12:01/26/21 Rosmery Aguilar R.N.PROBLEMS:Thyroid Disease.Gastroesophageal Reflux Disease. --12:01/26/21 Rosmery Aguilar R.N.Medication/allergy information source: the patient. --12:01/26/21 Rosmery Aguilar R.N.ADDITIONAL SURGERIES: 2 Clinical Report - Nurses [facility] Emergency Department [address] [place] [address] Phone #: ext- [phone] 01/26/2021 11:59 Patient: MONIE PRUITT Sex: F : 1995 Age: 25y no known surgeries. History PAST MEDICAL HX: Immunizations: up-to-date and (Pt has not had COVID-19 vaccine). Last normal menstrual period- 01/15/2021. SOCIAL HX: Current some days light tobacco smoker (cigarette)- less than 1/2 a pack per day. No alcohol use or drug use. No recent travel. No known contact with a sick individual. She was offered HIV testing but declined. Patient education was provided. She was offered hepatitis C testing but declined. Patient education was provided. ( COVID screen negative). She has not traveled outside the [place] Infectious disease exposure: No infectious disease exposure. The patient was not exposed to Coronavirus. Mask placed on patient. Patient is not a known carrier of tuberculosis, hepatitis, HIV, MRSA or CRE. SELF HARM ASSESSMENT: Self harm assessment was performed. The patient answered "no" to the question(s) "Do you have thoughts of harming or killing yourself?" and "Do you have a plan for harming or killing yourself?". ABUSE ASSESSMENT: Abuse assessment. The patient had positive responses to the question(s) "Do you feel safe in your home?". Abuse denied. No suspicion of abuse. No report of abuse. NUTRITIONAL RISK ASSESSMENT: The nutritional risk assessment revealed no deficiencies. FUNCTIONAL ASSESSMENT: Functional assessment: no impairments noted. LEARNING NEEDS ASSESSMENT: The learning needs assessment revealed no barriers. FALL RISK ASSESSMENT: Fall risk assessment completed. Risk factors identified include dizziness. SKIN INTEGRITY ASSESSMENT: Skin integrity risk assessment completed. No skin integrity risk identified. --12:14 01/26/21 Rosmery Aguilar R.N. Interventions Identification band on patient. --12:14 01/26/21 Rosmery Aguilar R.N. To treatment room. --14:19 01/26/21 Rosmery Aguilar R.N.PHYSICAL ASSESSM ENTlate entry - 13:47 01/26/21.GENERAL / NEURO / PSYCH: Alert. Oriented X 4. Appears in no acute distress.HEENT: Mucous membranes are pink.RESPIRATORY: Respirations not labored. Breath sounds within normal limits.CVS: Normal sinus rhythm noted. Capillary refill less than 2 seconds.GI / : The patient has had nausea. Abdomen soft. Abdominal tenderness in the right lower quadrantand left lower quadrant. Bowel sounds within normal limits. ( last bm 3-4 days ago).SKIN: Skin is warm and dry. --15:52 01/26/21 Vandana Rasheed R.N. 3 Clinical Report - Nurses [facility] Emergency Department [address] [place] [address] Phone #: ext- [phone] 01/26/2021 11:59 Patient: MONIE PRUITT Sex: F : 1995 Age: 25yNURSING PROGRESS NOTESPatient ID band checked for patient name and birthdate: patient confirmed. Blood samples drawn by labper protocol ; labeled in presence of the patient. --12:41 01/26/21 Rosmery Aguilar R.N. Point of Care Testing: Performed by nurse. Finger stick glucose: 83 mg/dL. Result shown to the ED physician. --13:01/26/21 Rosmery Aguilar R.N. EKG time: (late entry - 12:59 01/26/2021). EKG was ordered, performed by a nurse and shown to the ED physician. --13:01/26/21 Rosmery Aguilar R.N. Patient ID band checked for pa tient name: patient confirmed. Instructions provided to collect clean catch urine and patient verbalized understanding. Clean catch urine collected; sample sent to lab for urinalysis. Specimen labeled in the presence of the patient. --13:02 01/26/21 Rosmery Aguilar R.N. 13:02 01/26/21. BP: 104/66. MAP: 78. HR: 73. RR: 18. O2 saturation: 99%. Temp: 98.7 F. --13:03 01/26/21 Rosmery Aguilar R.N. Reassessment acuity: LEVEL 3. Rounding: Pain: assessed pain level. Proximity of possessions / care items: call light within easy reach. Set expectations: advised patient of rounding protocol timing and asked if they needed anything else at this time. The patient is calm and resting quietly. Overall patient status is the same- she states feels the same. ( NAD, no changes). --13:03 01/26/21 Rosmery Aguilar R.N. 14:32 01/26/21. BP: 97/60. HR: 58. RR: 16. O2 saturation: 100%. --14:32 01/26/21 [place] [employer] worker, NATALIA Guerrier Tech1 late entry - 14:30 01/26/21. Monitoring of patient in place. Patient gowned. Reassurance given. Three patient identifiers checked. Call light placed in reach. Side rails up x 2. Bed placed in lowest position. Brakes of bed on. --15:53 01/26/21 Vandana Rasheed R.N. late entry - 15:35 01/26/21. Monitoring of patient in place. Patient gowned. Reassurance given. Rounding: Position: states comfortable. Proximity of possessions / care items: call light within easy reach. Set expectations: advised patient of rounding protocol timing and asked if they needed anything else at this time. The patient is calm and resting quietly. Patient waiting for lab and radiology results. --15:53 01/26/21 Vandana Rasheed R.N. Monitoring of patient in place. Patient gowned. Reassurance given. Rounding: Position: states comfortable. Proximity of possessions / care items: call light within easy reach. Set expectations: advised patient of rounding protocol timing and asked if they needed anything else at this time. The patient is calm and resting quietly. Patient waiting for lab and radiology results. -- 16:21 4 Clinical Report - Nurses [facility] Emergency Department [address] [place] [address] Phone #: ext- [phone] 01/26/2021 11:59 Patient: MONIE PRUITT Sex: F : 1995 Age: 25y 01/26/21 Vandana Rasheed R.N. 15:30 01/26/21. BP: 100/62. MAP: 74. HR: 65. RR: 18. O2 saturation: 100%. --16:37 01/26/21 [facility] [employer], [employer] Tech1 16:30 01/26/21. BP: 102/68. MAP: 79. HR: 66. RR: 16. O2 saturation: 100%. --16:38 01/26/21 [facility] [employer], ER Tech1 18:00 01/26/21. BP: 101/71. MAP: 81. HR: 74. RR: 17. O2 saturation: 99%. --18:39 01/26/21 [facility] 19:51 01/26/2021 Zofran ODT (Ondansetron HCl) PO Oral Disintegrating Tablets 4 mg given. Allergies verified and confirmed 5 rights. Information reviewed with patient including reason for taking this medication, signs of allergic reaction and precautions. Verbalizes understanding. --20:06 01/26/21 Vandana Rasheed R.N.DISPOSITION / DISCHARGE 19:54 01/26/21. BP: 104/67. MAP: 79. HR: 78. RR: 18. O2 saturation: 100%. Temp: 98.6 F. Pain level now: 07/30. --19:54 01/26/21 [facility] Tech 20:00 01/26/21. Departure time: late entry - 20:00 01/26/2021. Xavier Coma Scale: 15- eyes open- spontaneous (4); best verbal response- oriented (5); best motor response- obeys commands (6). Condition at departure: improved and stable. No learning barriers present. Discharge instructions provided and reviewed with the patient. Reviewed referral to a primary care physician for followup. Patient verbalized understanding. Written instructions provided in Algerian. The patient was discharged by the physician. She was discharged home and accompanied by spouse. She left ambulatory and via private vehicle. Spouse driving. --20:08 01/26/21 Vandana Rasheed R.N.Locked/Released at 01/26/2021 20:21 by Vandana Rasheed R.N. Name Value Range Interpretation Code Description Data Maribel rce(s) Supporting Document(s) ID Date Data Source [id number] 01/26/2021 12:00:00 PM EDT [facility] 1 Clinical Report - Physicians/Mid Levels [facility] Emergency Department [address] [place] [address] Phone #: ext- [phone] 01/26/2021 11:59 [id number] Sex[facility] F : 1995 Age: 25y Arrived- By private vehicle. Historian- patient. Disposition decision: 19:53 01/26/2021.HISTORY OF PRESENT ILLNESS Chief Complaint: ABDOMINAL PAIN. This started days and is now gone. It is described as cramping. No radiation. It is described as located in the epigastric area. The patient has had nausea, loss of appetite and vomiting. No diarrhea. (Onset. (4 days ago). ( Pt states 4 days ago she woke up and ate cereal, started feeling nauseous (pt states this is normal for her with GERD), however then pt states she started getting dizzy and pale, pt states "i have fainted twice", 2 days ago and went to [facility] yesterday and was told she was dehydrated from her GERD and was instructed to come back if symptoms got worse; Pt states she was d/c from there and "now feels worse", with stomach cramping, decreased urine output; Pt states she was able to eat pizza last night and vomited this morning and ate cereal this morning and vomited. Pt then got super dizzy this morning and decided to come to ER.). She has had nausea and vomiting.). No recent travel. Similar symptoms previously. Recent medical care: The patient was seen recently at another facility in the emergency department.REVIEW OF SYSTEMSNo constipation, black stools, hematemesis or difficulty with urination or urination. No pain with urination,urinary frequency or urinary frequency, bloody stools or fever. No headache, sore throat or throat orblurred vision. No chest pain or pain, difficulty breathing or cough. No joint pain or pain, skin rash or rashor chills. No back pain or pain, chills, fever or double vision. No eye irritation, ear pain, nasal congestion,cough or difficulty breathing. No headache or seizure. The patient has had abdominal pain, nausea andvomiting.PAST HISTORYSee nurses notes. Problems: Abdominal Pain. Thyroid Disease. Gastroesophageal Reflux Disease. Additional Surgeries: no known surgeries. Medications: Pantoprazole Sodium Oral 40 mg, daily. 2 Clinical Report - Physicians/Mid Levels [facility] Emergency Department [address] [place] [address] Phone #: ext- [phone] 01/26/2021 11:59 Patient: MONIE PRUITT Sex: F : 1995 Age: 25y Allergies: No Known Drug Allergy.SOCIAL HISTORYNo drug use.ADDITIONAL NOTESThe nursing notes have been reviewed.PHYSICAL EXAMVital Signs: 01/26/2021 19:54 BP: 104/67. MAP: 79. HR: 78. RR: 18. O2 saturation: 100%. Temp: 98.6 F.Pain level now: 07/30.01/26/2021 18:00 BP: 101/71. MAP: 81. HR: 74. RR: 17. O2 saturation: 99%.01/26/2021 16:30 BP: 102/68. MAP: 79. HR: 66. RR: 16. O2 saturation: 100%.01/26/2021 15:30 BP: 100/62. MAP: 74. HR: 65. RR: 18. O2 saturation: 100%.01/26/2021 14:32 BP: 97/60. MAP: 72. HR: 58. RR: 16. O2 saturation: 100%.01/26/2021 13:02 BP: 104/66. MAP: 78. HR: 73. RR: 18. O2 saturation: 99%. Temp: 98.7 F.01/26/2021 12:07 BP: 106/67. MAP: 80. HR: 79. RR: 18. O2 saturation: 98% on room air. Temp: 97.8 F.Pain level now: 08/30. Have been reviewed and appear to be correct. Blood pressure normal. Meanarterial pressure- normal. Heart rate normal. Respiratory rate normal. Temperature normal. Oxygensaturation normal.Appearance: Alert. Oriented X3. No acute distress.Eyes: Pupils equal, round and reactive to light. Eyes normal inspection.ENT: Nose normal. Pharynx normal.Neck: Normal inspection. Neck supple.CVS: Normal heart rate and rhythm. Heart sounds normal.Respiratory: No respiratory distress. Painless inspiration. Breath sounds normal. Chest nontender.Abdomen: Soft. Mild tenderness in the right upper quadrant, right lowe r quadrant, left lower quadrant andlower abdomen. No guarding, rebound tenderness or Stephenson's sign present. Bowel sounds normal. Nomass.Back: Normal inspection. No CVA tenderness.Skin: Skin warm and dry. Normal skin color. No rash. Normal skin turgor.Extremities: Extremities exhibit normal ROM. No lower extremity edema.Neuro: Oriented X 3. No motor deficit. No sensory deficit.LABS, X-RAYS, AND EKGLaboratory Tests: EKG: (CRISTAL: 01/26/2021 13:01) ( MsgRcvd 01/27/2021 01:11) In Progress CBC w Diff: (CRISTAL: 01/26/2021 12:12) ( MsgRcvd 01/26/2021 12:34) Final results Test Result Flag Units (Reference) CBC W/AUTOMATED DIFF COMPLETE BLOOD COUNT WBC 5.7 10/uL (4.2 - 11.0) 3 Clinical Report - Physicians/Mid Levels [facility] Emergency Department [address] [place] [address] Phone #: ext- [phone] 01/26/2021 11:59 Patient: MONIE PRUITT Sex: F : 1995 Age: 25y RBC 4.51 10/uL (4.20 - 5.40) HEMOGLOBIN 13.2 g/dL (12.0 - 16.0) HEMATOCRIT 39.5 % (37.0 - 47.0) MCV 87.6 fL (81.0 - 101) MCH 29.3 pg (27.0 - 34.0) MCHC 33.4 g/dL (31.0 - 36.0) RDW 12.1 % (11.5 - 14.5) PLATELETS 260 10/uL (150 - 450) MPV 10.3 fL (7.4 - 10.4) NEUT 63.4 % (37.0 - 80.0) LYMPH 26.7 % (25.0 - 40.0) MONO 7.0 % (3.0 - 8.0) EOS 2.4 % (0.0 - 7.0) BASO 0.3 % (0.0 - 2.5) %IG 0.2 H % (0.0 - 0.0) %NRBC 0.0 % (0.0 - 0.0) #NEUT 3.62 10/uL (2.00 - 6.90) #LYMPH 1.53 10/uL (0.60 - 3.40) #MONO 0.40 10/uL (0.00 - 0.90) #EOS 0.14 10/uL (0.00 - 0.70) #BASO 0.02 10/uL (0.00 - 0.20) #IG 0.01 10/uL (0.00 - 0.10) #NRBC 0.00 10/uL (0.00 - 0.00) MANUAL DIFF NOT INDICATED RBC MORPH NOT INDICATEDCMP: (CRISTAL: 01/26/2021 12:12) ( MsgRcvd 01/26/2021 13:01) Final results Test Result Flag Units (Reference) COMPREHENSIVE METABOLIC PANEL COMPREHENSIVE METABOLIC PANEL SODIUM 141 mEq/L (134 - 153) POTASSIUM 3.7 mEq/L (3.6 - 5.0) CHLORIDE 104 mEq/L (98 - 107) CO2 26 MEQ/L (22 - 30) GLUCOSE 93 MG/DL (70 - 99) BUN 10 MG/DL (7 - 21) CREATININE 0.7 MG/DL (0.7 - 1.5) BUN/CREAT 14 (8 - 27) TOTAL PROTEIN 7.6 G/DL (6.3 - 8.2) ALBUMIN 5.0 G/DL (3.9 - 5.0) GLOBULIN 2.6 GM/DL (2.4 - 3.2) A/G RATIO 1.9 (0.8 - 2.0) CALCIUM 10.1 MG/DL (8.4 - 10.2) TOTAL BILI <0.7 MG/DL (0.2 - 1.3) ALKALINE PHOS 58 U/L (38 - 126) SGOT/AST 18 U/L (5 - 40) SGPT/ALT 13 U/L (7 - 56) ANION GAP 11.0 mmol/L (8.0 - 16.0) AGE 25 yrs NON-AA GFR >60 mL/min AFR AMER GFR >60 mL/min Male GFR Interprentation 20-49 yrs >60 mL/min Bdgrsv64-29 yrs >56 mL/min Normal 60-69 yrs >49 mL/min Normal 70-79yrs>42 mL/min Normal 80 and above >35 mL/min Normal Female GFRInterpretation 20-39 yrs >60 mL/min Normal 40-49 yrs >58 mL/minNormal 50-59 yrs >51 mL/min Normal 60-69 yrs >45 mL/min Zvleiu98-47 yrs >39 mL/min Normal 80 and above >32 mL/min NormalUA REFLEX TO UA CULTURE: (CRISTAL: 01/26/2021 12:15) ( MsgRcvd 01/26/2021 12:49) Final results 4 Clinical Report - Physicians/Mid Levels [facility] Emergency Department [address] [place] [address] Phone #: ext- [phone] 01/26/2021 11:59 Patient: MONIE PRUITT Sex: F : 1995 Age: 25y Test Result Flag Units (Reference) UA REFLEX TO UA CULTURE URINALYSIS SOURCE R COLOR yellow (NORMAL: Yello CLARITY clear (NORMAL: Clear SPEC GRAVITY 1.025 (1.001 - 1.030 pH 6 (5 - 9) GLUCOSE NORM (NORMAL: Negat BILIRUBIN NEG (NORMAL: Negat KETONE 50 A (NORMAL: Negat PROTEIN NEG (NORMAL: Negat NITRITE NEG (NORMAL: Negat BLOOD NEG (NORMAL: Negat LEUK EST NEG (NORMAL: Negat UROBILINOGEN NOR (less than 1.0 MICROSCOPIC Not Indicate Beta-HCG, Qual Urine: (CRISTAL: 01/26/2021 12:15) ( MsgRcvd 01/26/2021 12:48) Final results Test Result Flag Units (Reference) HCG URINE QUAL NEGATIVE (NORMAL: NEGAT HCG URINE QL REENTER NEGATIVE (NORMAL: NEGAT { KIT LOT # [id number] ){ KIT EXP DATE 04/22/22 ){ PROCEDURAL CONTROL VALID ).PROGRESS AND PROCEDURESCourse of Care: pt is a 25 year old female with anxiety who states she has been having stomach pains.she further stated she has been evaluated recently at [facility] ED. she states her labs are nl. here int ed, her abdomen is benign. she is very tiny. she states this is her normal stature and she has notlost weight. labs reviewed and grossly nl. she does have mild ketones in her urine. pt stated she had toleave her daughter is ill and she must go. Pt is stable. vs are stable. I encouraged her to f/u with pcp, GI,and rig hand. her pain was in her ruq and lower pelvis. Patient/family counseled. Disposition: Discharged. Condition: good and stable.CLINICAL IMPRESSION Acute right upper quadrant, epigastric, right lower quadrant and left lower quadrant abdominal pain. Gastroesophageal reflux disease. No esophagitis. 5 Clinical Report - Physicians/Mid Levels [facility] Emergency Department [address] [place] [address] Phone #: ext- [phone] 01/26/2021 11:59 Patient: MONIE PRUITT Sex: F : 1995 Age: 25yINSTRUCTIONS Drink plenty of fluids. (Avoid spicy, greasy, fatty foods. return if worse or any new symptoms. It is important to follow up with your primary care physician. I recommend you get an ultrasound of your gallbladder and your pelvis to look at your ovaries. please take tylenol and motrin for pain. Take the zofran for nausea/vomiting. continue to take your prilosec for reflux.). Warnings: Further evaluation is necessary. GENERAL WARNINGS: Return or contact your physician immediately if your condition worsens or changes unexpectedly, if not improving as expected, or if other problems arise. Your Current Medications: Your current home medications have been reviewed. CONTINUE TAKING THE FOLLOWING MEDICATIONS: Pantoprazole Sodium Oral : 40 mg daily. Follow-up: Follow up with your doctor Thursday even if well. Call for an appointment. Reason for referral: evaluation. Summary of care provided to patient via paper. Understanding of the discharge instructions verbalized by patient.(Electronically signed by Rukhsana Taylor MD 01/27/2021 09:24) Name Value Range Interpretation Code Description Data Maribel rce(s) Supporting Document(s) ID Date Data Source [id number] 01/26/2021 10:07:00 PM EDT [facility] 1 OrderSheet [facility] Emergency Department [address] [place] [address] Phone #: ext- [phone] 01/26/2021 22:04 Patient: MONIE PRUITT Sex: F : 1995 Age: 25yWEIGHT:47.6 kg (S) HEIGHT:64 inches (S) BMI:18.0ALLERGIES: No Known Drug AllergyCHIEF COMPLAINT: rectal bleedingDIAGNOSIS: Rectal hemorrhageLAB ORDERSOrder Description Priority Entered Acknowledged InitialedDIAGNOSTIC STUDY ORDERSOrder Description Priority Entered Acknowledged InitialedCT Abd PEL W/ IV STAT 22:15 01/26/2021 Ack'd: 22:17 22:43 Jacob,Nan Only Rukhsana aTylor MD; Ankita Patrick R.N.(Oxygen?(No))(IV?(Yes)) NOTES: labs done 8 hrs ago. 2nd visit to ed. initial visit for abd pain Reason for Study: GI BleedMEDICATION/IV/DRIP/FLUID ORDERSOrder Description Priority Entered Acknowledged InitialedIV NS 1000 mL 22:15 01/26/2021 22:40 Darnell,Bolus : Bolus 1000 Rukhsana Taylor MD; Ankita SmithmL (X1)GENERAL ORDERSOrder Description Priority Entered Acknowledged Initialed[Electronically signed by Ankita Patrick R.N. (00:20 01/27/2021)][Electronically signed by Rukhasna Taylor MD (08:11 01/27/2021)][Electronically locked by Ankita Patrick R.N. (00:20 01/27/2021)] Name Value Range Interpretation Code Description Data Maribel rce(s) Supporting Document(s) ID Date Data Source [id number] 01/26/2021 10:07:00 PM EDT [facility] 1 Medication Reconciliation Report [facility] Emergency Department [address] [place] [address] Phone #: ext- [phone] 01/26/2021 22:04 Patient: MONIE PRUITT Sex: F : 1995 Age: 25yWeight: 47.6 kgHeight/Length: 64 in.BMI: 18.0ALLERGIES: No Known Drug AllergyThe patient's Home Medications are listed below:CONTINUE TAKING THE FOLLOWING MEDICATIONS: Pantoprazole Sodium Oral 40 mg, dailyThe source(s) of the original Home Medication information:Not obtained.The following Medications were given to the patient in the Emergency Department:Sodium Chloride [IV] IV Fluids bolus 0, then 1000 mL/hr, administered: 22:40 01/26/2021The following Medications were prescribed to the patient:None. Name Value Range Interpretation Code Description Data Maribel rce(s) Supporting Document(s) ID Date Data Source [id number] 01/26/2021 10:07:00 PM EDT [facility] 1 Medication Administration Record [facility] Emergency Department [address] [place] [address] Phone #: ext- [phone] 01/26/2021 22:04 Patient: MONIE PRUITT Sex: F : 1995 Age: 25yWeight: 47.6 kgHeight/Length: 64 inBMI: 18ALLERGIES: No Known Drug Allergy Date/Time Medication Administered Medication OrderedStart SODIUM CHLORIDE [IV] IV NS 1000 mL Bolus : Bolus [id number] 01/26/2021 Dose: IV Fluids mL (X1)Ankita Patrick R.N. Rate: 1000 mL/hr over 1 hour(s)---- Dispensed: 1000 mL bagStop Site: #1 right AC23:20 01/26/2021Ankita Patrick RJeane Name Value Range Interpretation Code Description Data Maribel rce(s) Supporting Document(s) ID Date Data Source [id number] 01/26/2021 10:07:00 PM EDT [facility] 1 General Instructions [facility] Emergency Department [address] [place] [address] Phone #: ext- [phone] 01/26/2021 22:04 Patient: MONIE PRUITT Sex: F : 1995 Age: 25yRectal bleed consisting of bright red blood.INSTRUCTIONSDrink plenty of fluids.(make sure you drink plenty of fluids. follow up with your doctor on thursday. you will need f/u with GI.You may need an upper and lower endoscopy. Take your medicines as previously instructed.). Warnings: Further evaluation is necessary.GENERAL WARNINGS: Return or contact your physician immediately if your condition worsens orchanges unexpectedly, if not improving as expected, or if other problems arise.Your Current Medications: Your current home medications have been reviewed.CONTINUE TAKING THE FOLLOWING MEDICATIONS:Pantoprazole Sodium Oral : 40 mg daily.Follow-up:Follow up with your doctor Thursday even if well. Call for an appointment. Reason for referral: evaluation.Summary of care provided to patient via paper.Understanding of the discharge instructions verbalized by patient. ADDITIONAL INFORMATIONLower Gastrointestinal (GI) Bleeding (Stable)You have signs of blood in your stool. This is called rectal bleeding. The bleeding may have begun inanother part of your gastrointestinal (GI) tract. If the blood is bright red, it is likely coming from thelower part of the GI tract. If the blood is black or dark, it might be coming from higher up in the GItract. Very small amounts of GI bleeding may not be visible and can only be discovered during a teston your stool. Possible causes of lower GI bleeding include: Swollen inflamed veins in the rectum (hemorrhoids) Tear in the lining of the anus (anal fissures) Inflammation of a small pouch in the intestine (diverticulitis) 2 General Instructions [facility] Emergency Department [address] [place] [address] Phone #: ext- [phone] 01/26/2021 22:04 Patient: MONIE PRUITT Sex: F : 1995 Age: 25y Inflammatory bowel disease (Crohn's disease or ulcerative colitis) Polyps (growths) in the intestine Swelling and irritation of the colon (infectious colitis) Colon cancerNote: Iron supplements and medicines for diarrhea or upset stomach can cause black stools. Foodssuch as licorice and red beets can also discolor the stool and be mistaken for bleeding. These are notbleeding and are not a cause for alarm.Home careYou have not lost a large amount of blood and your condition appears stable at this time. You mayresume normal activity as long as you feel well.Don't take NSAIDs, such as aspirin, ibuprofen, or naproxen. They can irritate the stomach and causefurther bleeding. If you are taking these medicines for other medical reasons, talk to your healthcareprovider before you stop them.Follow-up careFo llow up with your healthcare provider, or as advised. Further tests may be needed to find the causeof your bleeding.When to seek medical adviceCall your healthcare provider right away for any of the following: Large amount of rectal bleeding Increasing abdominal pain Weakness, dizzinessCall 911Call 911 if any of the following occur: Loss of consciousness Vomiting blood [phone] [place] [address]. All rights reserved. This information is not intended as asubstitute for professional medical care. Always follow your healthcare professional's instructions. 3 General Instructions [facility] Emergency Department [address] [place] [address] Phone #: ext- [phone] 01/26/2021 22:04 Patient: MONIE PRUITT Sex: F : 1995 Age: 25yYou have been given the following additional information:Lower GI Bleeding (Stable)(Electronically signed by Rukhsana Taylor MD 01/27/2021 08:11) Name Value Range Interpretation Code Description Data Maribel rce(s) Supporting Document(s) ID Date Data Source [id number] 01/26/2021 10:07:00 PM EDT [facility] 1 Clinical Report - Nurses [facility] Emergency Department [address] [place] [address] Phone #: ext- [phone] 01/26/2021 22:04 Patient: MONIE PRUITT Sex: F : 1995 Age: 25yTRIAGEArrived by private vehicle. Historian: patient. Accompanied by family.Acuity: LEVEL 3.Chief Complaint: (blood in stool).Alert. No acute distress.This started today. ( Patient arrives c/o blood in stool. Pt states she was seen here earlier for "stmachissues". Pt states when she went home she had a watery stool with medium red color blood mixed in. Ptstates she came back to be seen again. Pt reports stomach cramping has gotten worse since she left.).Treatment DIRECTOR [employer]:(zofran). --22:17 01/26/21 Ankita Patrick R.N.22:12 01/26/21. BP: 102/64. MAP: 76. HR: 88. RR: 16. O2 saturation: 99% on room air. Temp: 98.2 F(oral). Pain level now: 11/30. --22:17 01/26/21 Ankita Patrick R.N.Weight: 47.6 kg stated. Height/Length: 64 inches Per Patient. BMI: 18. --22:12 01/26/21 Ankita Patrick R.N.MedicationsPantoprazole Sodium Oral 40 mg, daily. --22:14 01/26/21 Ankita Patrick R.N.AllergiesNo Known Drug Allergy. --22:14 01/26/21 Ankita Patrick R.N.PROBLEMS:Abdominal Pain.Gastroesophageal Reflux Disease.Thyroid Disease. --22:15 01/26/21 Ankita Patrick R.N.HistoryPAST MEDICAL HX: Immunizations: up-to-date. Last normal menstrual period- Jan 15.SOCIAL HX: Current some days smoker. No alcohol use or drug use. She has not traveled outside the.[place].Infectious disease exposure: No infectious disease exposure. The patient was not exposed to Coronavirus.(pt is not vaccinated for covid 19). Patient is not a known carrier of tuberculosis, hepatitis, HIV, MRSA orVRE. Patient is not a known carrier of CRE.ABUSE ASSESSMENT: Abuse assessment. The patient had positive responses to the question(s) "Do you 2 Clinical Report - Nurses [facility] Emergency Department [address] [place] [address] Phone #: [phone]- [phone] 01/26/2021 22:04 Patient: MONIE PRUITT Sex: F : 1995 Age: 25y feel safe in your home?", "Are you afraid to go home?", "Has anyone hurt you or threatened to hurt you?", "Are you afraid of your partner?" and "Have children witnessed violence in the home?". Abuse denied. NUTRITIONAL RISK ASSESSMENT: The nutritional risk assessment revealed no deficiencies. FUNCTIONAL ASSESSMENT: Functional assessment: no impairments noted. LEARNING NEEDS ASSESSMENT: The learning needs assessment revealed no barriers. FALL RISK ASSESSMENT: Fall risk assessment completed. No risk factors identified. SKIN INTEGRITY ASSESSMENT: Skin integrity risk assessment completed. No skin integrity risk identified. --22:17 01/26/21 Ankita Patrick RJeane SELF HARM ASSESSMENT: Self harm assessment was performed. The patient answered "no" to the question(s) "Have you recently felt down, depressed, or hopeless?", "Do you have thoughts of harming or killing yourself?", "Do you have a plan for harming or killing yourself?", "Have you recently had thoughts about harming or killing others?", "Do you have any dangerous items in your possession?", "Have you noticed less interest or pleasure in doing things?", "Are you here because you tried to hurt yourself?" and "Have you ever tried to hurt yourself before today?". --22:42 01/26/21 Ankita Patrick R.NAngeline Interventions Identification band on patient. To treatment room. --22:17 01/26/21 Ankita Patrick R.N.PHYSICAL ASSESSMENTAmbulatory to room. Patient gowned.GENERAL / NEURO / PSYCH: Alert. Oriented X 4. Appears in no acute distress. ( intermittent dizzyepisodes).HEENT: Pupils equal, round and reactive to light. No facial asymmetry noted. Mucous membranes arepink.RESPIRATORY: Respirations not labored. Chest nontender. Breath sounds within normal limits.CVS: Normal sinus rhythm noted. Capillary refill less than 2 seconds. Pulses within normal limits.GI / : ( blood in stool x 1 episode. Abdominal cramping). Abdomen soft and nontender and normalbowel sounds.SKIN: Skin intact. Skin is warm and dry. Normal skin turgor. --22:41 01/26/21 Ankita Patrick R.N.NURSING PROGRESS NOTES22:23 01/26/2021 Site #1 started via IV in the right antecubital space with an 20g angiocath, with aseptictechnique; one attempt. Saline lock flushed with 10 mL saline. --22:23 Ankita Patrick R.N. 22:40 01/26/2021 Started bag #1 1000 mL IV Fluids Sodium Chloride; at 1000 mL/hr over 1 hour(s) via site #1 via IV pump. Allergies verified and confirmed 5 rights. IV patency established. IV site checked: no pain, redness, or swelling. IV flushed thoroughly pre- and post-medication administration. Information reviewed with patient. Verbalizes understanding. --22:40 01/26/21 Ankita Patrick R.N. 3 Clinical Report - Nurses [facility] Emergency Department [address] [place] [address] Phone #: ext- [phone] 01/26/2021 22:04 Patient: MONIE PRUITT Sex: F : 1995 Age: 25y Patient gowned. Head of bed elevated. Reassurance given. The patient is calm and resting quietly. Two patient identifiers checked. Call light placed in reach. Side rails up x 2. Bed placed in lowest position. Brakes of bed on. --22:41 01/26/21 Ankita Patrick R.N. 23:20 01/26/2021 IV Fluids Sodium Chloride via IV site #1 Discontinued: completed. Total amount infused: 1000 mL. IV patency established. IV site checked: no pain, redness, or swelling. IV flushed thor oughly. --00:20 01/27/21 Ankita Patrick R.N.DISPOSITION / DISCHARGE 00:19 01/27/2021 Site #1 removed upon discharge. Bandaid applied. --00:19 01/27/21 Ankita Patrick R.N. Condition at departure: stable. No learning barriers present. Discharge instructions provided and reviewed with the patient. Reviewed warnings. Reviewed medication(s). Treatments reviewed. Reviewed referral to a primary care physician for followup. Patient verbalized understanding. Written instructions provided in Algerian. The patient was discharged by the physician. She was discharged home and accompanied by spouse. She left ambulatory and via private vehicle. Spouse driving. --00:20 01/27/21 Ankita Patrick R.N. 00:19 01/27/21. BP: 104/66. HR: 76. RR: 16. O2 saturation: 100%. Temp: 97.9 F. Pain level now 10. --00:20 01/27/21 Ankita Patrick R.N.Locked/Released at 01/27/2021 00:20 by Ankita Patrick R.N. Name Value Range Interpretation Code Description Data Maribel rce(s) Supporting Document(s) ID Date Data Source [id number] 01/26/2021 10:07:00 PM EDT [facility] 1 Clinical Report - Physicians/Mid Levels [facility] Emergency Department [address] [place] [address] Phone #: ext- [phone] 01/26/2021 22:04 [id number] Sex[facility] : 1995 Age: 25y Arrived- By private vehicle. Historian- patient. Disposition decision: 00:08 01/27/2021.HISTORY OF PRESENT ILLNESS Chief Complaint: RECTAL BLEEDING. This started just prior to arrival, has been mild and is now gone. The patient has had rectal bleeding but not had dark stools, rectal pain or hard stools. No constipation, nausea, vomiting, diarrhea or abdominal pain. (This started today. ( Patient arrives c/o blood in stool. Pt states she was seen here earlier for "stmach issues". Pt states when she went home she had a watery stool with medium red color blood mixed in. Pt states she came back to be seen again. Pt reports stomach cramping has gotten worse since she left.).). Similar symptoms previously. None. Recent medical care: Not recently seen/assessed.REVIEW OF SYSTEMSNo dizziness, fainting episodes, weakness, fever or blurred vision. No sore throat or throat, epistaxis,cough or difficulty breathing. No chest pain or pain, hematuria or skin rash or rash. No chills, joint pain orpain, chills or fever. No double vision, ear pain, nasal congestion, cough or difficulty breathing. Nodiarrhea, nausea, vomiting, urinary frequency or hematuria. No neck pain, headache, seizure, easybruising or difficulty with urination. The patient has had abdominal pain, bloody stools, weakness, andanxiety.PAST HISTORYSee nurses notes. Problems: Abdominal Pain. Gastroesophageal Reflux Disease. Thyroid Disease. Medications: Pantoprazole Sodium Oral 40 mg, daily. Allergies: No Known Drug Allergy.SOCIAL HISTORYNo drug use.ADDITIONAL NOTES 2 Clinical Report - Physicians/Mid Levels [facility] Emergency Department [address] [place] [address] Phone #: ext- [phone] 01/26/2021 22:04 [id number] Sex: F : 1995 Age: 25y The nursing notes have been reviewed.PHYSICAL EXAMVital Signs: 01/26/2021 22:12 BP: 102/64. MAP: 76. HR: 88. RR: 16. O2 saturation: 99% on room air.Temp: 98.2 F. Pain level now: 11/30. Have been reviewed and appear to be correct. Blood pressurenormal. Mean arterial pressure- normal. Heart rate normal. Respiratory rate normal. Temperaturenormal. Oxygen saturation normal.Appearance: Alert. Oriented X3. No acute distress.Eyes: Pupils equal, round and reactive to light. Eyes normal inspection.ENT: Ears normal. Nose normal. Pharynx normal.Neck: Normal inspection. Neck supple.CVS: Normal heart rate. Heart sounds normal. Pulses normal.Respiratory: No respiratory distress. Painless inspiration. Breath sounds normal.Abdomen: Soft and nontender. Bowel sounds normal.Back: Normal inspection. No CVA tenderness.Skin: Skin warm and dry. Normal skin color. No rash. Normal skin turgor.Extremities: Extremities exhibit normal ROM. No lower extremity edema.Neuro: Oriented X 3. No motor deficit. No sensory deficit.LABS, X-RAYS, AND EKGLaboratory Tests: CT Abd PEL W/ IV Contrast Only: (CRISTAL: 01/26/2021 22:15) ( MsgRcvd 01/27/2021 01:24) In Progress CT ABD Reason(s): GI Bleed TRANSPORTATION: IV? IV?(Yes) O2? Oxygen?(No) Ro : No CMTS: labs done 8 hrs ago. 2nd visit to ed. initial vis.PROGRESS AND PROCEDURE SCourse of Care: pt presents to the ED for evaluation of her blood in her stools. she was seen earlier inthe ED for her abdominal pain. during this ed visit, her abd exam is benign. ct shows no acute findings.pt admitted that she is a very nervous person and she has fainted in the past due to her anxiety. Regardingher blood in her rectum, pt was instructed to f/u with GI. she may need a referral from her PCP. pt's vsare stable. pt instructed to drink plenty of fluids. Patient/family counseled. Disposition: Discharged. Condition: good and stable.CLINICAL IMPRESSION Rectal bleed consisting of bright red blood. 3 Clinical Report - Physicians/Mid Levels [facility] Emergency Department [address] [place] [address] Phone #: ext- [phone] 01/26/2021 22:04 Patient: MONIE PRUITT Sex: F : 1995 Age: 25yINSTRUCTIONS Drink plenty of fluids. (make sure you drink plenty of fluids. follow up with your doctor on thursday. you will need f/u with GI. You may need an upper and lower endoscopy. Take your medicines as previously instructed.). Warnings: Further evaluation is necessary. GENERAL WARNINGS: Return or contact your physician immediately if your condition worsens or changes unexpectedly, if not improving as expected, or if other problems arise. Your Current Medications: Your current home medications have been reviewed. CONTINUE TAKING THE FOLLOWING MEDICATIONS: Pantoprazole Sodium Oral : 40 mg daily. Follow-up: Follow up with your doctor Thursday even if well. Call for an appointment. Reason for referral: evaluation. Summary of care provided to patient via paper. Understanding of the discharge instructions verbalized by patient.(Electronically signed by Rukhsana Taylor MD 01/27/2021 08:11) Name Value Range Interpretation Code Description Data Maribel rce(s) Supporting Document(s) ID Date Data Source [id number] 01/26/2021 12:15:00 PM EDT [facility] ([facility]) Name Value Range Interpretation Code Description Data Maribel rce(s) Supporting Document(s) Source Laboratory test result [place] ([facility]) Laboratory test finding (navigational concept) Laboratory test result [facility] ([facility]) URINALYSIS Spec [place] 1.025 1.001-1.030 [facility] ([facility]) Clarity Laboratory test result [facility] ([facility]) Color Laboratory test result [place] ([facility]) pH 6 5-9 [facility] ([facility]) Glucose Laboratory test result [facility] ([facility]) Ketone 50 Abnormal (applies to non-numeric res ults) [facility] ([facility]) Bilirubin Laboratory test result [facility] ([facility]) Nitrite Laboratory test result [facility] ([facility]) Protein Laboratory test result [place] [facility] ([facility]) Urobilinogen Laboratory test result [facility] ([facility]) Blood Laboratory test result [facility] ([facility]) Leuk Est Laboratory test result [facility] ([facility]) Microscopic Laboratory test result [facility] ([facility]) ID Date Data Source [id number] 01/26/2021 12:15:00 PM [facility] Name Value Range Interpretation Code Description Data Maribel rce(s) Supporting Document(s) HCG Urine Qual Laboratory test result [facility] ([facility]) HCG Urine QL [place] Laboratory test result [facility] ([facility]) { KIT LOT # [id number] ) { KIT EXP DATE 04/22/22 ) { PROCEDURAL CONTROL VALID ) ID Date Data Source [id number] 01/26/2021 12:49:00 PM EDT [facility] Name Value Range Interpretation Code Description Data Maribel rce(s) Supporting Document(s) UA REFLEX TO UA CULTURE [facility] URINALYSIS SOURCE R [facility] COLOR yellow NORMAL: Yellow [facility] CLARITY clear NORMAL: Clear [facility] Specific gravity of Urine by Test strip 1.025 1.001 - 1.030 [facility] pH 6 5 - [facility] Gl[facility] [Mass/volume] in Urine by Test strip NORM NORMAL: [facility] Bilirubin.total [Presence] in Urine by Test strip NEG NORMAL: Negative [facility] Ketones [Presence] in Urine by Test strip 50 NORMAL: Negative A [facility] Protein [Mass/volume] in Urine by Test strip NEG NORMAL: Negat sreena [facility] Nitrite [Presence] in Urine by Test strip NEG NORMAL: Negative [facility] BLOOD NEG NORMAL: Negative [facility] Leukocyte esterase [Presence] in Urine by Test strip NEG RUKHSANA L: Negative [facility] Urobilinogen [Mass/volume] in Urine by Test strip NOR less gonsalo n 1.0 mg/dL [facility] MICROSCOPIC Not Indicate [facility] ID Date Data Source [id number] 01/26/2021 12:48:00 PM EDT [facility] Name Value Range Interpretation Code Description Data Maribel rce(s) Supporting Document(s) HCG URINE QUAL NEGATIVE NORMAL: NEGATIVE [facility] HCG URINE QL REENTER NEGATIVE NORMAL: NEGATIVE [facility] { KIT LOT # [id number] ){ KIT EXP DATE 04/22/22 ){ PROCEDURAL CONTROL VALID ) ID Date Data Source [id number] 01/26/2021 12:12:00 PM EDT [facility] ([facility]) Name Value Range Interpretation Code Description Data Amribel rce(s) Supporting Document(s) Comprehensive [employer] Laboratory test result [facility] ([facility]) COMPREHENSIVE METABOLIC PANEL Potassium 3.7 meq/L 3.6-5.0 [facility] ([facility]) Sodium 141 meq/L 134-153 [facility] ([facility]) Chloride 104 meq/L 98-107 [facility] ([facility]) Glucose 93 mg/dL 70-99 [facility] ([facility]) Co2 26 meq/L 22-30 [facility] ([facility]) BUN/Creat 14 8-27 [facility] ([facility]) Creatinine 0.7 mg/dL 0.7-1.5 [facility] ([facility]) BUN 10 mg/dL 7-21 [facility] ([facility]) Total Protein 7.6 g/dL 6.3-8.2 [facility] ([facility]) Albumin 5.0 g/dL 3.9-5.0 [facility] ([facility]) A/G Ratio 1.9 0.8-2.0 [facility] ([facility]) Calcium 10.1 mg/dL 8.4-10.2 [facility] ([facility]) Globulin 2.6 GM/DL 2.4-3.2 [facility] ([facility]) Alkaline Phos 58 U/L 38-126 [facility] Total Bili Laboratory test result 0.2-1.3 [facility] ([facility]) Sgot/Ast 18 U/L 5-40 [facility] ([facility]) SGPT/Alt 13 U/L 7-56 [facility] ([facility]) Anion Gap 11.0 mmol/L 8.0-16.0 [facility] ([facility]) Non-Aa GFR Laboratory test result [place] [facility] ([facility]) Afr Amer GFR Laboratory test result [facility] ([facility]) Male GFR Interprentation 20-49 yrs >60 mL/min Normal 50-59 yrs >56 mL/min Normal 60-69 yrs >49 mL/min Normal 70-79yrs >42 mL/min Normal 80 and above >35 mL/min Normal Female GFR Interpretation 20-39 yrs >60 mL/min Normal 40-49 yrs >58 mL/min Normal 50-59 yrs >51 mL/min Normal 60-69 yrs >45 mL/min Normal 70-79 yrs >39 mL/min Normal 80 and above >32 mL/min Normal Age 25 yrs [facility] ([facility]) ID Date Data Source [id number] 01/26/2021 12:12:00 PM EDT [facility] ([facility]) Name Value Range Interpretation Code Description Data Maribel rce(s) Supporting Document(s) WBC 5.7 10^3/uL 4.2-11.0 [facility] ([facility]) RBC 4.51 10^6/uL 4.20-5.40 [facility] ([facility]) CBC W/Automated Diff Laboratory test result [facility] ([facility]) COMPLETE BLOOD COUNT Hemoglobin 13.2 g/dL 12.0-16.0 [facility] ([facility]) Hematocrit 39.5 % 37.0-47.0 [facility]) MCV 87.6 fL 81.0-101 [facility]) MCHC 33.4 g/dL 31.0-36.0 [facility]) MCH 29.3 pg 27.0-34.0 [facility]) Platelets 260 10^3/uL 150-450 [facility]) MPV 10.3 fL 7.4-10.4 [facility]) RDW 12.1 % 11.5-14.5 [facility]) [place] 7.0 % 3.0-8.0 [facility] Neut 63.4 % 37.0-80.0 [facility] ([facility]) Lymph 26.7 % 25.0-40.0 [facility] ([facility]) Baso 0.3 % 0.0-2.5 [facility] ([facility]) Eos 2.4 % 0.0-7.0 [facility] ([facility]) %Ig 0.2 % 0.0-0.0 Above high normal [facility] ([facility]) %NRBC 0.0 % 0.0-0.0 [facility] ([facility]) #Neut 3.62 10^3/uL 2.00-6.90 [facility] ([facility]) #[place] 0.40 10^3/uL 0.00-0.90 [facility] ([facility]) #Lymph 1.53 10^3/uL 0.60-3.40 [facility] ([facility]) #Baso 0.02 10^3/uL 0.00-0.20 [facility] ([facility]) #Ig 0.01 10^3/uL 0.00-0.10 [facility] ([facility]) #Eos 0.14 10^3/uL 0.00-0.70 [facility] ([facility]) Manual Diff Laboratory test result Tom HARMON ([facility]) #NRBC 0.00 10^3/uL 0.00-0.00 ALEXYS ([facility]) RBC Morph Laboratory test result ME CHAUDHARI ([facility]) ID Date Data Source [id number] 01/26/2021 01:00:00 PM EDT [facility] Name Value Range Interpretation Code Description Data Maribel rce(s) Supporting Document(s) COMPREHENSIVE METABOLIC PANEL [facility] COMPREHENSIVE METABOLIC PANEL Sodium [Moles/volume] in Serum or Plasma 141 mEq/L 134 - 153 [facility] Potassium [Moles/volume] in Serum or Plasma 3.7 mEq/L 3.6 - 5.0 [facility] Chloride [Moles/volume] in Serum or Plasma 104 mEq/L 98 - 107 [facility] Carbon dioxide, total [Moles/volume] in Serum or Plasma 26 MEQ/L 22 - 30 [facility] Glucose [Mass/volume] in Serum or Plasma 93 MG/DL 70 - 99 [facility] BUN 10 MG/DL 7 - 21 [facility] al Creatinine [Mass/volume] in Serum or Plasma 0.7 MG/DL 0.7 - 1.5 [facility] BUN/CREAT 14 8 - 27 [facility] al Protein [Mass/volume] in Serum or Plasma 7.6 G/DL 6.3 - 8.2 [facility] Albumin [Mass/volume] in Serum or Plasma 5.0 G/DL 3.9 - 5.0 [facility] Globulin [Mass/volume] in Serum by calculation 2.6 GM/DL 2.4 - 3.2 [facility] A/G RATIO 1.9 0.8 - 2.0 [facility] Calcium [Mass/volume] in Serum or Plasma 10.1 MG/DL 8.4 - 10.2 [facility] Bilirubin.total [Mass/volume] in Serum or Plasma <0.7 MG/DL 0.2 - 1.3 [facility] Alkaline phosphatase [Enzymatic activity/volume] in Serum or Plasma 58 U/L 38 - 126 [facility] Aspartate aminotransferase [Enzymatic activity/volume] in Serum or Plasma 18 U/L 5 - 40 [facility] Alanine aminotransferase [Enzymatic activity/volume] in Seru m or Plasma 13 U/L 7 - 56 [facility] Anion gap 3 in Serum or Plasma 11.0 mmol/L 8.0 - 16.0 [facility] AGE 25 yrs [facility] NON-AA GFR >60 mL/min [facility] AFR AMER GFR >60 mL/min [facility] Male GFR In terprentation 20-49 yrs >60 mL/min Normal 50-59 yrs >56 mL/min Normal 60-69 yrs >49 mL/min Normal 70-79yrs >42 mL/min Normal 80 and above >35 mL/min Normal Female GFR Interpretation 20-39 yrs >60 mL/min Normal 40-49 yrs >58 mL/min Normal 50-59 yrs >51 mL/min Normal 60-69 yrs >45 mL/min Normal 70-79 yrs >39 mL/min Normal 80 and above >32 mL/min Normal ID Date Data Source [id number] 01/26/2021 12:34:00 PM EDT [facility] Name Value Range Interpretation Code Description Data Maribel rce(s) Supporting Document(s) CBC W/AUTOMATED DIFF [facility] COMPLETE BLOOD COUNT Leukocytes [#/volume] in Blood by Automated count 5.7 10^3/uL 4.2 - 1 1.0 [facility] Erythrocytes [#/volume] in Blood by Automated count 4.51 10^6/uL 4. 20 - 5.40 [facility] Hemoglobin [Mass/volume] in Blood 13.2 g/dL 12.0 - 16.0 [facility] Hematocrit [Volume Fraction] of Blood by Automated count 39.5 % 3 7.0 - 47.0 [facility] Erythrocyte mean corpuscular volume [Entitic volume] by Auto mated count 87.6 fL 81.0 - 101 [facility] Erythrocyte mean corpuscular hemoglobin [Entitic mass] by Automated count 29.3 pg 27.0 - 34.0 [facility] Erythrocyte mean corpuscular hemoglobin concentration [Mass/volume] by Automated count 33.4 g/dL 31.0 - 36.0 [facility] Erythrocyte distribution width [Ratio] by Automated count 12.1 % 11.5 - 14.5 [facility] Platelets [#/volume] in Blood by Automated count 260 10^3/uL 150 - 45 0 [facility] Platelet mean volume [Entitic volume] in Blood by Automated count 10.3 fL 7.4 - 10.4 [facility] Neutrophils/100 leukocytes in Blood by Automated count 63.4 % 37. 0 - 80.0 [facility] Lymphocytes/100 leukocytes in Blood by Manual count 26.7 % 25.0 - 40.0 [facility] Monocytes/100 leukocytes in Blood by Automated count 7.0 % 3.0 - 8.0 [facility] Eosinophils/100 leukocytes in Blood by Automated count 2.4 % 0.0 - 7.0 [facility] Basophils/100 leukocytes in Blood by Automated count 0.3 % 0.0 - 2.5 [facility] %IG 0.2 % 0.0 - 0.0 H [facility] %NRBC 0.0 % 0.0 - 0.0 [facility] al Neutrophils [#/volume] in Blood by Automated count 3.62 10^3/uL 2.00 - 6.90 [facility] Lymphocytes [#/volume] in Blood by Automated count 1.53 10^3/uL 0.60 - 3.40 [facility] Monocytes [#/volume] in Blood by Automated count 0.40 10^3/uL 0.00 - 0.90 [facility] Eosinophils [#/volume] in Blood by Automated count 0.14 10^3/uL 0.00 - 0.70 [facility] Basophils [#/volume] in Blood by Automated count 0.02 10^3/uL 0.00 - 0.20 [facility] #IG 0.01 10^3/uL 0.00 - 0.10 [facility] ospital #NRBC 0.00 10^3/uL 0.00 - 0.00 [facility] MANUAL DIFF NOT INDICATED [facility] RBC MORPH NOT INDICATED [facility] ID Date Data Source [id number] 01/25/2021 08:51:00 AM EDT [facility] ([facility]) Name Value Range Interpretation Code Description Data Maribel rce(s) Supporting Document(s) White Blood Count 9.2 10 4.0-10.0 Normal (applies to non-numeri c results) [facility] ([facility]) Red Blood Count 4.79 10 4.00-5.40 Normal (applies to non-numeric results) [facility] ([facility]) Hematocrit 42.1 % 36.0-47.0 Normal (applies to non-numeric resul ts) [facility] ([facility]) Hemoglobin 14.0 g/dL 12.0-15.5 Normal (applies to non-numeric resul ts) [facility] ([facility]) Mean Corpuscular Hemoglobin 29.2 pg 27.0-33.0 Norm al (applies to non-numeric results) [facility] ([facility]) Mean Corpuscular Volume 87.9 fl 80.0-96.0 Normal ( applies to non-numeric results) [facility] Mean Corpuscular HGB Conc 33.3 g/dL 32.0-36.5 Normal (applies to non-numeric results) [facility]) Red Cell Distribution Width 12.1 % 11.5-14.5 Norm al (applies to non-numeric results) [facility] ([facility]) Platelet Count, Automated 300 10 150-450 Normal (applies to non-numeric results) [facility] ([facility]) [place] % 5.3 % 2.0-8.0 Normal (applies to non-numeric resul ts) [facility] ([facility]) Lymph % 15.0 % 24.0-44.0 Below low normal [facility] ( [facility]) Neutrophils % 77.8 % 36.0-66.0 Above high normal MEDE NT ([facility]) Baso % 0.3 % 0.0-1.0 Normal (applies to non-numeric resul ts) [facility] ([facility]) Eos % 1.4 % 0.0-3.0 Normal (applies to non-numeric resul ts) [facility] ([facility]) Neutrophils # 7.1 10 1.5-8.5 Normal (applies to non-numeric re sults) [facility] ([facility]) Immature Granulocyte % 0.2 % 0-3.0 Normal (applies to non-n umeric results) [facility] Nucleated Red Blood Cell % 0.0 % 0-0 Normal (applies to n on-numeric results) [facility] ([facility]) Lymph # 1.4 10 1.5-5.0 Below low normal [facility] ( [facility]) Eos # 0.1 10 0.0-0.5 Normal (applies to non-numeric resul ts) [facility] ([facility]) [place] # 0.5 10 0.0-0.8 Normal (applies to non-numeric resul ts) [facility] Baso # 0.0 10 0.0-0.2 Normal (applies to non-numeric resul ts) [facility] ID Date Data Source [id number] 01/25/2021 08:51:00 AM EDT [facility] ([facility]) Name Value Range Interpretation Code Description Data Maribel rce(s) Supporting Document(s) Choriogonadotropin.beta subunit [Moles/volume] in Seru m or Plasma Laboratory test result Normal (applies to non-numeric results) [facility] ([facility]) GESTATIONAL AGE APPROXIMATE HCG RANGE (MIU/ML) - [...] monitoring the treatment of cancer patients. Siemens [place] methodology. ID Date Data Source [id number] 01/25/2021 08:51:00 AM EDT [facility]) Name Value Range Interpretation Code Description Data Maribel rce(s) Supporting Document(s) Thyroid Stimulating Hormone 0.494 uIU/ML 0.358-3.740 Norm al (applies to non- numeric results) [facility] ([facility]) Free T4 1.07 ng/dL 0.76-1.46 Normal (applies to non-numeric resul ts) [facility]) ID Date Data Source [id number] 01/25/2021 08:51:00 AM EDT [facility]) Name Value Range Interpretation Code Description Data Maribel rce(s) Supporting Document(s) Lipase [Enzymatic activity/volume] in Serum or Plasma 69 U/L 73-393 Below low normal [facility]) ID Date Data Source [id number] 01/25/2021 08:51:00 AM EDT [facility]) Name Value Range Interpretation Code Description Data Maribel rce(s) Supporting Document(s) Glucose, Fasting 96 mg/dL 70-100 Normal (applies to non-numeric results) [facility] ([facility]) Creatinine For GFR 0.79 mg/dL 0.55-1.30 Normal (applies to non -numeric results) [facility] ([facility]) Blood Urea Nitrogen 10 mg/dL 7-18 Normal (applies to non-nume raf results) [facility] ([facility]) Glomerular Filtration Rate Laboratory test result Normal (applies to non- numeric results) [facility]) <content>Units are mL/min/1.73 m2</content>
<content></content>
<content>Chronic Kidney Disease Staging per NKF:</content>
<content></content>
<content>Stage I & II GFR >=60 Normal to Mildly Decreased</content>
<content>Stage III GFR 30-59 Moderately Decreased</content>
<content>Stage IV GFR 15-29 Severely Decreased</content>
<content>Stage V GFR <15 Very Little GFR Left</content>
<content>ESRD GFR <15 on [employer]</content>
<content></content> Sodium Level 141 meq/L 136-145 Normal (applies to non-numeric res ults) [facility] ([facility]) Carbon Dioxide Level 29 meq/L 21-32 Normal (applies to non-num bi results) [facility] ([facility]) Potassium Serum 4.2 meq/L 3.5-5.1 Normal (applies to non-numeric results) [facility] ([facility]) Chloride Level 107 meq/L 98-107 Normal (applies to non-numeric r esults) [facility] ([facility]) Calcium Level 10.0 mg/dL 8.5-10.1 Normal (applies to non-numeric re sults) [facility] ([facility]) Anion Gap 5 meq/L 8-16 Below low normal [facility] ( [facility]) ID Date Data Source [id number] 01/25/2021 08:51:00 AM EDT [facility] Name Value Range Interpretation Code Description Data Maribel rce(s) Supporting Document(s) Ast/Sgot 15 U/L 7-37 Normal (applies to non-numeric resul ts) [facility]) Alkaline Phosphatase 62 U/L 45-117 Normal (applies to non-num bi results) [facility] ([facility]) Alt/SGPT 23 U/L 12-78 Normal (applies to non-numeric resul ts) [facility]) Bilirubin,Direct 0.1 mg/dL 0.0-0.2 Normal (applies to non-numeric results) [facility] ([facility]) Bilirubin,Total 0.5 mg/dL 0.2-1.0 Normal (applies to non-numeric results) [facility] ([facility]) Total Protein 8.0 GM/DL 6.4-8.2 Normal (applies to non-numeric re sults) [facility] ([facility]) Albumin 4.4 GM/DL 3.2-5.2 Normal (applies to non-numeric resul ts) [facility] ([facility]) Albumin/Globulin Ratio 1.2 1.2-2.2 Normal (applies to non-n umeric results) [facility] ([facility]) ID Date Data Source [id number] 04/10/2020 09:24:00 AM EST [facility] ([facility]) Name Value Range Interpretation Code Description Data Maribel rce(s) Supporting Document(s) Free T4 0.84 ng/dL 0.76-1.46 [facility] ([facility]) Thyroid Stimulating Hormone 1.140 uIU/ML 0.358-3.740 [facility] ([facility]) ID Date Data Source [id number] 12/26/2019 02:28:00 PM EDT [facility] ([facility]) Name Value Range Interpretation Code Description Data Maribel rce(s) Supporting Document(s) Thyroperoxidase Ab [Units/volume] in Serum or Plasma 32.3 U/ML [facility] ([facility]) ID Date Data Source [id number] 12/26/2019 02:28:00 PM EDT [facility] ([facility]) Name Value Range Interpretation Code Description Data Maribel rce(s) Supporting Document(s) Thyroid Stimulating Hormone 0.752 uIU/ML 0.358-3.740 [facility] ([facility]) Free T4 1.01 ng/dL 0.76-1.46 [facility] ([facility]) Procedure Social History Code Duration Value Status Description Data Source(s ) Smoking 06/20/2020 12:00:00 AM EDT Patient is a former smoker completed Patient is a former smoker [facility] ([facility]) Vital Signs ID Date Data Source [id number] Name Value Range Interpretation Code Description Data Source(s) Diastolic blood pressure 78 mm[Hg] 78 mm[Hg] [facility] Heart rate 78 /min 78 /min [facility] ([facility]) Body height 64.1 [in_i] 64.1 [in_i] [facility] 5'4.10" Respiratory rate 18 /min 18 /min [facility] ( [facility]) Body weight 108.00 [lb_av] 108.00 [lb_av] MEDEN T ([facility]) Body temperature 98.2 [degF] 98.2 [degF] [facility] ([facility]) Body mass index (BMI) [Ratio] 18.5 kg/m2 18.5 k g/m2 [facility] ([facility]) Oxygen saturation in Arterial blood by Pulse oximetry 98 % 98 % [facility] ([facility]) [place] body weight 120 [lb_av] 120 [lb_av] MEDEN T ([facility]) Systolic blood pressure 116 mm[Hg] 116 mm[Hg] M EDENT ([facility]) Systolic blood pressure 112 mm[Hg] 112 mm[Hg] [facility] ([facility]) Diastolic blood pressure 58 mm[Hg] 58 mm[Hg] [facility] ([facility]) Body height 64.1 [in_i] 64.1 [in_i] [facility] ([facility] 5'4.10" Body weight 107.12 [lb_av] 107.12 [lb_av] MEDEN T ([facility]) Body mass index (BMI) [Ratio] 18.3 kg/m2 18.3 k g/m2 [facility] ([facility]) Heart rate 84 /min 84 /min [facility] ([facility]) Respiratory rate 18 /min 18 /min [facility] ( [facility]) Body temperature 98.3 [degF] 98.3 [degF] [facility] ([facility]) Oxygen saturation in Arterial blood by Pulse oximetry 98 % 98 % [facility] ([facility]) [place] body weight 120 [lb_av] 120 [lb_av] MEDEN T ([facility]) Body mass index (BMI) [Ratio] 18.8 kg/m2 18.8 k g/m2 [facility] ([facility]) Heart rate 90 /min 90 /min [facility] ([facility]) Body temperature 98.8 [degF] 98.8 [degF] [facility] ([facility]) Respiratory rate 18 /min 18 /min [facility] ( [facility]) Oxygen saturation in Arterial blood by Pulse oximetry 98 % 98 % [facility] ([facility]) [place] body weight 120 [lb_av] 120 [lb_av] MEDEN T ([facility]) Body weight 110.12 [lb_av] 110.12 [lb_av] MEDEN T ([facility]) Systolic blood pressure 104 mm[Hg] 104 mm[Hg] M EDENT ([facility]) Diastolic blood pressure 58 mm[Hg] 58 mm[Hg] [facility] ([facility]) Body height 64.1 [in_i] 64.1 [in_i] [facility] ([facility] 5'4.10" Systolic blood pressure 100 mm[Hg] 100 mm[Hg] M [facility] ([facility] Diastolic blood pressure 72 mm[Hg] 72 mm[Hg] [facility] ([facility] Heart rate 113 /min 113 /min [facility] ([facility] Body temperature 97.3 [degF] 97.3 [degF] [facility] ([facility] Body height 64.75 [in_i] 64.75 [in_i] [facility] ([facility] 5'4.75" Body weight 108.38 [lb_av] 108.38 [lb_av] MEDEN T ([facility] Body mass index (BMI) [Ratio] 18.2 kg/m2 18.2 k g/m2 [facility] ([facility] ) Oxygen saturation in Arterial blood by Pulse oximetry 98 % 98 % [facility] ([facility] Body mass index (BMI) [Ratio] 17.1 kg/m2 17.1 k g/m2 [facility] ([facility] ) Systolic blood pressure 122 mm[Hg] 122 mm[Hg] M [facility]ENT ([facility] ) Oxygen saturation in Arterial blood by Pulse oximetry 98 % 98 % [facility] ([facility] ) Diastolic blood pressure 70 mm[Hg] 70 mm[Hg] [facility] ([facility] Heart rate 113 /min 113 /min [facility] ([facility] Body temperature 97.1 [degF] 97.1 [degF] [facility] ([facility]) Body height 64.75 [in_i] 64.75 [in_i] [facility] ([facility]) 5'4.75" Body weight 102.25 [lb_av] 102.25 [lb_av] MEDEN T ([facility]) Diastolic blood pressure 70 mm[Hg] 70 mm[Hg] [facility] ([facility]) Systolic blood pressure 122 mm[Hg] 122 mm[Hg] M [facility]ENT ([facility]) Heart rate 68 /min 68 /min [facility] ([facility]) Body temperature 97.5 [degF] 97.5 [degF] [facility] ([facility]) Body height 64.75 [in_i] 64.75 [in_i] [facility] ([facility]) 5'4.75" Body weight 109.00 [lb_av] 109.00 [lb_av] MEDEN T ([facility]) Body mass index (BMI) [Ratio] 18.3 kg/m2 18.3 k g/m2 [facility] ([facility] Systolic blood pressure 100 mm[Hg] 100 mm[Hg] M EDENT ([facility]) Body weight 106.38 [lb_av] 106.38 [lb_av] MEDEN T ([facility]) Diastolic blood pressure 60 mm[Hg] 60 mm[Hg] [facility] ([facility]) Body height 64.1 [in_i] 64.1 [in_i] [facility] ([facility] 5'4.10" Respiratory rate 18 /min 18 /min [facility] ( [facility]) Body mass index (BMI) [Ratio] 18.2 kg/m2 18.2 k g/m2 [facility] ([facility]) Oxygen saturation in Arterial blood by Pulse oximetry 99 % 99 % [facility] ([facility]) Body temperature 99.1 [degF] 99.1 [degF] [facility] ([facility]) Heart rate 97 /min 97 /min [facility] ([facility]) [place] body weight 120 [lb_av] 120 [lb_av] MED[facility] T ([facility])
[2021-01-31] MEDS ORDERED: [UNRECOGNIZED DRUG - CODE] (10:12)
[2021-01-31] MEDS ORDERED: SUCR1TAB56 (10:12)
[2021-01-31 10:48] LABS: BASO % 0.3 % (0.0-1.0); EOS # 0.2 10^3/uL (0.0-0.5); EOS % 2.5 % (0.0-3.0); HEMATOCRIT 41.6 % (36.0-47.0); HEMOGLOBIN 13.9 g/dl (12.0-15.5); LYMPH # 1.6 10^3/uL (1.5-5.0); LYMPH % 26.8 % (24.0-44.0); MEAN CORPUSCULAR HGB CONC 33.4 g/dl (32.0-36.5); MEAN CORPUSCULAR VOLUME 86.8 fl (80.0-96.0); MONO # 0.4 10^3/uL (0.0-0.8); MONO % 6.4 % (2.0-8.0); NEUTROPHILS # 3.8 10^3/uL (1.5-8.5); NEUTROPHILS % 63.8 % (36.0-66.0); PLATELET COUNT, AUTOMATED 261 10^3/uL (150-450); RED BLOOD COUNT 4.79 10^6/uL (4.00-5.40)
[2021-01-31 11:21] LABS: ALBUMIN 4.5 GM/DL (3.2-5.2); ALT/SGPT 26 U/L (12-78); BILIRUBIN,DIRECT 0.2 MG/DL (0.0-0.2); BILIRUBIN,TOTAL 0.7 MG/DL (0.2-1.0); BLOOD UREA NITROGEN 11 MG/DL (7-18); CARBON DIOXIDE LEVEL 29 MEQ/L (21-32); CHLORIDE LEVEL 107 MEQ/L (98-107); CREATININE FOR GFR 0.86 MG/DL (0.55-1.30); GLOMERULAR FILTRATION RATE > 60.0 (>60); GLUCOSE, FASTING 92 MG/DL (70-100); LIPASE 70 U/L (73-393); POTASSIUM SERUM 4.2 MEQ/L (3.5-5.1); SODIUM LEVEL 141 MEQ/L (136-145); TOTAL PROTEIN 7.9 GM/DL (6.4-8.2)
--- OUTSIDE RECORDS SUMMARY | 2021-01-31 11:48 | CCD ---
Author Author [facility] Organization [facility] Address Unknown Phone Unavailable Care Team Providers Care Non Clinical Advisor Name Role Phone LATRICE-EMIL, MARCOS DO Unavailable [...] MARCOS DO Unavailable Unavailable MATTIE, B ELMO INFORMATION SECURITY RISK ANALYST Unavailable Unavailable MATTIE, B ELMO INFORMATION SECURITY RISK ANALYST Unavailable Unavailable MATTIE, B ELMO INFORMATION SECURITY RISK ANALYST Unavailable Unavailable MATTIE, B ELMO INFORMATION SECURITY RISK ANALYST Unavailable Unavailable MATTIE, B ELMO INFORMATION SECURITY RISK ANALYST Unavailable Unavailable MATTIE, B ELMO INFORMATION SECURITY RISK ANALYST Unavailable Unavailable MATTIE, B ELMO INFORMATION SECURITY RISK ANALYST Unavailable Unavailable MATTIE, B ELMO INFORMATION SECURITY RISK ANALYST Unavailable Unavailable MATTIE, B ELMO INFORMATION SECURITY RISK ANALYST Unavailable Unavailable MATTIE, B ELMO INFORMATION SECURITY RISK ANALYST Unavailable Unavailable MATTIE, B ELMO INFORMATION SECURITY RISK ANALYST Unavailable Unavailable MATTIE, B ELMO INFORMATION SECURITY RISK ANALYST Unavailable Unavailable MATTIE, B ELMO INFORMATION SECURITY RISK ANALYST Unavailable Unavailable MATTIE, B ELMO INFORMATION SECURITY RISK ANALYST Unavailable Unavailable MATTIE, B ELMO INFORMATION SECURITY RISK ANALYST Unavailable Unavailable MATTIE, B ELMO INFORMATION SECURITY RISK ANALYST Unavailable Unavailable MATTIE, B ELMO INFORMATION SECURITY RISK ANALYST Unavailable Unavailable MATTIE, B ELMO INFORMATION SECURITY RISK ANALYST Unavailable Unavailable MATTIE, B ELMO INFORMATION SECURITY RISK ANALYST Unavailable Unavailable MATTIE, B ELMO INFORMATION SECURITY RISK ANALYST Unavailable Unavailable MATTIE, B ELMO INFORMATION SECURITY RISK ANALYST Unavailable Unavailable MATTIE, B ELMO INFORMATION SECURITY RISK ANALYST Unavailable Unavailable MATTIE, B ELMO INFORMATION SECURITY RISK ANALYST Unavailable Unavailable MATTIE, B ELMO INFORMATION SECURITY RISK ANALYST Unavailable Unavailable MATTIE, B EMLO INFORMATION SECURITY RISK ANALYST Unavailable Unavailable MATTIE, B ELMO INFORMATION SECURITY RISK ANALYST Unavailable Unavailable MATTIE, B ELMO INFORMATION SECURITY RISK ANALYST Unavailable Unavailable MATTIE, B ELMO INFORMATION SECURITY RISK ANALYST Unavailable Unavailable MATTIE, B ELMO INFORMATION SECURITY RISK ANALYST Unavailable Unavailable MATTIE, B ELMO INFORMATION SECURITY RISK ANALYST Unavailable Unavailable MATTIE, B ELMO INFORMATION SECURITY RISK ANALYST Unavailable Unavailable MATTIE, B ELMO INFORMATION SECURITY RISK ANALYST Unavailable Unavailable MATTIE, B ELMO INFORMATION SECURITY RISK ANALYST Unavailable Unavailable MATTIE, B ELMO INFORMATION SECURITY RISK ANALYST Unavailable Unavailable MATTIE, B ELMO INFORMATION SECURITY RISK ANALYST Unavailable Unavailable MATTIE, B ELMO INFORMATION SECURITY RISK ANALYST Unavailable Unavailable MATTIE, B ELMO INFORMATION SECURITY RISK ANALYST Unavailable Unavailable MATTIE, B ELMO INFORMATION SECURITY RISK ANALYST Unavailable Unavailable MATTIE, B ELMO INFORMATION SECURITY RISK ANALYST Unavailable Unavailable MATTIE, B ELMO INFORMATION SECURITY RISK ANALYST Unavailable Unavailable MATTIE, B ELMO INFORMATION SECURITY RISK ANALYST Unavailable Unavailable MATTIE, B ELMO INFORMATION SECURITY RISK ANALYST Unavailable Unavailable MATTIE, B ELMO INFORMATION SECURITY RISK ANALYST Unavailable Unavailable MATTIE, B ELMO INFORMATION SECURITY RISK ANALYST Unavailable Unavailable MATTIE, B ELMO INFORMATION SECURITY RISK ANALYST Unavailable Unavailable MATTIE, B ELMO INFORMATION SECURITY RISK ANALYST Unavailable Unavailable MATTIE, B ELMO INFORMATION SECURITY RISK ANALYST Unavailable Unavailable MATTIE, B ELMO INFORMATION SECURITY RISK ANALYST Unavailable Unavailable MATTIE, B ELMO INFORMATION SECURITY RISK ANALYST Unavailable Unavailable MATTIE, B ELMO INFORMATION SECURITY RISK ANALYST Unavailable Unavailable MATTIE, B ELMO INFORMATION SECURITY RISK ANALYST Unavailable Unavailable MATTIE, B ELMO INFORMATION SECURITY RISK ANALYST Unavailable Unavailable MATTIE, B ELMO INFORMATION SECURITY RISK ANALYST Unavailable Unavailable MATTIE, B ELMO INFORMATION SECURITY RISK ANALYST Unavailable Unavailable MATTIE, B ELMO INFORMATION SECURITY RISK ANALYST Unavailable Unavailable MATTIE, B ELMO INFORMATION SECURITY RISK ANALYST Unavailable Unavailable MATTIE, B ELMO INFORMATION SECURITY RISK ANALYST Unavailable Unavailable MATTIE, B ELMO INFORMATION SECURITY RISK ANALYST Unavailable Unavailable MATTIE, B ELMO INFORMATION SECURITY RISK ANALYST Unavailable Unavailable MATTIE, B ELMO INFORMATION SECURITY RISK ANALYST Unavailable Unavailable MATTIE, B ELMO INFORMATION SECURITY RISK ANALYST Unavailable Unavailable MATTIE, B ELMO INFORMATION SECURITY RISK ANALYST Unavailable Unavailable LATRICE-EMIL, MARCOS DO Unavailable Unavailable [...] Unavailable Unavailable LATRICE-EMIL, MARCOS DO Unavailable Unavailable LATRICE-EIML, MARCOS DO Unavailable Unavailable LATRICE-EMIL, MARCOS DO [...] is protected by Article 27-F of the [facility] Public Health law. If you continue you may have access to information: Regarding HIV / AIDS; Provided by facilities licensed or operated by the [facility] Office of Mental Health; or Provided by the [facility] Office for People With Developmental Disabilities. If such information is present, then the following [facility] mandated warning applies: This information has [...] PM EDT - 01/27/2021 12:21:[address] [facility] Patient discharged. Emergency Attender: RUKHSANA TAYLOR MDConsultant: MARCOS MEEKS DO 01/26/2021 12:00:00 PM EDT - 01/26/2021 08:00:[address] [facility] Patient discharged. Outpatient Attender: Richy JACKSON [facility] 12/11/2020 02:40:00 PM EDT [facility] ([facility]) Outpatient Attender: MARCOS ALBA DO [facility] 06/20/2020 04:00:00 PM EDT [facility] ([facility]) Outpatient Attender: Gabriele JACKSON [facility] 05/17/2020 01:20:00 PM EST [facility] ([facility]) OFFICE OUTPATIENT VISIT 15 MINUTES Attender: ELMO PHELPS NP Physical Therapy 04/23/2020 01:15:00 PM EST [facility] ([facility]) OFFICE OUTPATIENT VISIT 15 MINUTES Attender: ELMO PHELPS NP Physical Therapy 01/10/2020 11:30:00 AM EDT [facility] ([facility]) Outpatient Attender: ELMO PHELPS NP Physical Therapy 01:45:00 PM EDT [facility] ([facility]) Outpatient Attender: Gabriele JACKSON [facility] 12/15/2019 01:40:00 PM EDT [facility] ([facility]) Medications Medication Brand Name Start Date Product Form Dose Route Admi nistrative Instructions Pharmacy Instructions Status Indications Reaction Description Data Source(s) Sertraline 50 MG Oral Tablet [Zoloft] Zoloft 01/23/2021 12:00:00 AM EDT ORAL active [facility] ([facility]) pantoprazole 40 MG Delayed Release Oral Tablet Pantoprazole Sodium 12/11/2020 12:00:00 AM EDT ORAL active M [facility] ([facility]) Meclizine Hydrochloride 25 MG Oral Tablet Meclizine HCL 12/11/2020 12:00:00 AM EDT ORAL active [facility] ([facility]) Sertraline 25 MG Oral Tablet Sertraline HCL 05/17/2020 12:00:00 AM EST ORAL active [facility] ([facility]) Alprazolam 0.25 MG Oral Tablet Alprazolam 05/17/2020 12:00:00 AM EST ORAL active [facility] ([facility]) No Active Medications 12/15/2019 12:00:00 AM EDT completed [facility] ([facility]) Insurance Providers Payer name Policy type / Coverage type Policy ID Covered green party ID Covered green party's relationship to mullen Policy Mullen Plan Information [facility] [id number] [facility] [id number] 18 [id number] [facility] [id number] Problems, Conditions, and Diagnoses Code Display Name Description Problem Type Effective Dates Data Source(s) 60977450 Anxiety Anxiety Problem 05/17/2020 12:00:00 AM ES T [facility] ([facility]) Surgeries/Procedures Procedure Description Date Indications Data Source(s) OFFICE OUTPATIENT VISIT 15 MINUTES 12/11/2020 12:00:00 AM EDT [facility] ([facility]) PERIODIC PREVENTIVE MED EST PATIENT 18-39 YRS 06/21/19 12:00:00 AM EDT [facility] ([facility]) Results ID Date Data Source [id number] 01/28/2021 10:41:00 [place] [address] PHONE: [phone] FAX: [phone] Name ..............: YONY MEDINA MAcct Number ........................: [id number] ROOM. ............: TR-04 MR Number ............................: [id number] Stay type.........: E/R Discharge Date...............:01/26/21 Admit Date .....: 01/26/21 Admit Phys .............................: ........................COONEYNORM Date of ..: 1995 Family Phys ...........................: ........................[email or web address] Phone..............: [phone] Age.................................:25 Film# ...............:[id number] Sex.................................:F Unsigned transcriptions are preliminary reports and do [place] [id number] COMPLETE:01/27/21 01:11 CLC [id number] Please See Scanned Results. Name Value Range Interpretation Code Description Data Maribel rce(s) Supporting Document(s) ID Date Data Source [id number] 01/27/2021 09:30:00 PM EST [facility] [address] [place] [address] PHONE: [phone] FAX: [phone] Name .................. : YONY Santos Acct Number.................. : [id number] ROOM. ................. : TR-08 MR Number ................... : [id number] Stay type ............. : E/R Discharge Date......... ... : 01/27/21 Admit Date ......... : 01/26/21 Admit Phys .................... : COONEYNO Date of ....... : 1995 Family Phys ................... : [email or web address] Phone .................. : [phone] Age ................................ : 25 Film# .................. .:[id number] Sex ................................. : F Unsigned transcriptions are preliminary reports and do not represent a medical or legal document CT ABD & PELVIS W/ IV ONLY [id number] COMPLETE:01/27/21 01:24 [facility] [address] Reason(s): GI Bleed CT ABDOMEN AND PELVIS [...] No mass identified. Page 1 of 2 [facility] [address] [place] [address] PHONE: [phone] FAX: [phone] Name .................. : YONY Santos Acct Number.................. : [id number] ROOM. ................. : TR08 MR Number ................... : [id number] Stay type ............. : E/R Discharge Date......... ... : 01/27/21 Admit Date ......... : 01/26/21 Admit Phys .................... : [facility] Date of ....... : 1995 Family Phys ................... : [email or web address] Phone .................. : [phone] Age ................................ : 25 Film# .................. .:[id number] Sex ................................. : F Unsigned transcriptions are preliminary reports and do not represent a medical or legal document CT ABD & PELVIS W/ IV ONLY 24402 COMPLETE:01/27/21 01:24 [facility] [address]00 Reason(s): GI Bleed Appendix is seen and [...] rce(s) Supporting Document(s) ID Date Data Source [id number] 01/26/2021 12:00:[address] [facility] [address] [facility] Emergency Department [address] [place] [address] Phone #: ext- [phone] 01/26/2021 11:59 Patient: [...] UA STAT 12:14 01/26/2021 Ack'd: 12:14 13:02 Kings,Culture Kings, Rosmery Kings, Rosmery Botello R.N. R.N.; Verbal order R.N. per; Rukhsana Taylor MDHCG Urine Qual STAT 12:14 01/26/2021 Ack'd: 12:14 13:02 Kings, Kings, Rosmery Kings, Rosmery Botello R.N. R.N.; Verbal order R.N. per; Rukhsana Taylor MDDIAGNOSTIC STUDY ORDERSOrder Description Priority Entered Acknowledged InitialedMEDICATION/IV/DRIP/FLUID ORDERSOrder Description Priority Entered Acknowledged InitialedZofran ODT PO 4 19:53 01/26/2021 Ack'd: 19:57 20:06 Wili, (NOW x1) Rukhsana Taylor MD; Vandana RasheedNAngeline R.NAngelineGENERAL ORDERS [address] [facility] Emergency Department [address] [place] [address] Phone #: ext- [phone] 01/26/2021 11:59 Patient: MONIE PRUITT Sex: F : 1995 Age: 25yOrder Description Priority Entered Acknowledged InitialedEKG 13:01 01/26/2021 13:02 Jeff Aguilar, Rosmery Botello R.N. R.N.; Verbal order per; Rukhsana Taylor MD[Electronically signed by Vandana Rasheed R.N. (20:21 01/26/2021)][Electronically signed by Rukhsana Taylor MD (09:24 01/27/2021)][Electronically locked by Vandana Rasheed R.N. (20:21 01/26/2021)] Name Value Range Interpretation Code Description Data [facility] Supporting Document(s) ID Date Data Source [id number] 01/26/2021 12:00:[address] [facility] [address] [facility] Emergency Department [address] [place] [address] Phone #: ext- [phone] 01/26/2021 11:59 Patient: MONIE PRUITT Sex: F [...] Name Value Range Interpretation Code Description Data [facility] Supporting Document(s) ID Date Data Source [id number] 01/26/2021 12:00:[address] [facility] [address] [facility] Emergency Department [address] [place] [address] Phone #: ace- [phone] 01/26/2021 11:59 Patient: MONIE PRUITT Sex: F : 1995 Age: 25yWeight: 47.6 kgHeight/Length: 64 inBMI: 18ALLERGIES: No Known Drug Allergy Date/Time Medication Administered Medication OrderedGiven ZOFRAN ODT [PO] (ONDANSETRON Zofran ODT PO 4 mg (NOW x1)19:51 01/26/2021 HCL)Vandana Rasheed R.N. Dose: 4 mg Oral Disintegrating Tablets PO Name Value Range Interpretation Code Description Data Maribel rce(s) Supporting Document(s) ID Date Data Source [id number] 01/26/2021 12:00:[address] [facility] [address] [facility] Emergency Department [address] [place] [address] Phone #: ext- [phone] 01/26/2021 11:59 Patient: [...] of Abdominal Pain (Female) [address] [facility] Emergency Department [address] [place] [address] Phone #: ext- [phone] 01/26/2021 11:59 Patient: [...] for taking these medicines. [address] [facility] Emergency Department [address] [place] [address] Phone #: ext- [phone] 01/26/2021 11:59 [id number] Sex[facility] : 1995 Age: 25yGeneral care [...] begin to improve in thenext 24 hours.Call [phone] [phone] if any of these occur: Trouble breathing Confusion Fainting or loss of consciousness Rapid heart rate [address] [facility] Emergency Department [address] [place] [address] Phone #: ext- [phone] 01/26/2021 11:59 Patient: [...] or water and you are getting dehydrated [id number] [employer]. [address] [place] [address]. All rights reserved. This information is not intended as asubstitute for professional medic al care. Always follow your healthcare professional's instructions.GERD (Adult) [address] [facility] Emergency Department [address] [place] [address] Phone #: ext- [phone] 01/26/2021 11:59 Patient: [...] on and off.Lifestyle changes [address] [facility] Emergency Department [address] [place] [address] Phone #: ext- [phone] 01/26/2021 11:59 Patient: [...] the back, neck, shoulder, or arm An ufmk-yez-rqzqrxr trial of medicine doesn't relieve your symptoms [address] [facility] Emergency Department [address] [place] [address] Phone #: ext- [phone] 01/26/2021 11:59 Patient: MONIE PRUITT Sex: F : 1995 Age: 25y Weight loss that can't be explained Trouble or pain swallowing Frequent vomiting (can't keep down liquids) Blood in the stool or vomit (red or black in color) Feeling weak or dizzy Fever of 100.4F (38C) or higher, or as directed by your healthcare provider [id number] [employer]. [address] [place] [address], [place] [address]. All rights reserved. This information is not intended as asubstitute for professional medical care. Always follow your healthcare professional's instructions. You have been given the following additional information: Abdominal Pain, Unknown Cause, (Female) GERD (Adult)(Electronically signed by Rukhsana Taylor MD 01/27/2021 09:24) Name Value Range Interpretation Code Description Data Maribel rce(s) Supporting Document(s) ID Date Data Source [id number] 01/26/2021 12:00:[address] [facility] 1 Clinical Report - Nurses [facility] Emergency Department [address] [place] [address] Phone #: ext- [phone] 01/26/2021 11:59 Patient: [...] twice", 2 days ago and went to [facility] yesterday and was told she was dehydratedfrom [...] ER.). She has had nausea and vomiting.Treatment [employer]:(Pantoprazole last dose at 1000;).SEPSIS SCREEN: SIRS SCREEN [...] R.N.ADDITIONAL SURGERIES: 2 Clinical Report - Nurses [facility] Emergency Department [address] [place] [address] Phone #: ext- [phone] 01/26/2021 11:59 Patient: [...] Rasheed R.N. 3 Clinical Report - Nurses [facility] Emergency Department [address] [place] [address] Phone #: ext- [phone] 01/26/2021 11:59 Patient: MONIE PRUITT Sex: F [...] RR: 16. O2 saturation: 100%. --14:32 01/26/21 [place] communications department chair, NATALIA Guerrier Tech1 late entry - 14:30 [...] -- 16:21 4 Clinical Report - Nurses [facility] Emergency Department [address] [place] [address] Phone #: ext- [phone] 01/26/2021 11:59 Patient: MONIE PRUITT Sex: F : 1995 Age: 25y 01/26/21 Vandana Rasheed R.N. 15:30 01/26/21. BP: 100/62. MAP: 74. HR: 65. RR: 18. O2 saturation: 100%. --16:37 01/26/21 [facility] [employer], Bharat Matrimony Tech1 16:30 01/26/21. BP: 102/68. MAP: 79. HR: 66. RR: 16. O2 saturation: 100%. --16:38 01/26/21 [facility] [employer], ER Tech1 18:00 01/26/21. BP: 101/71. MAP: 81. HR: 74. RR: 17. O2 saturation: 99%. --18:39 01/26/21 [facility] Tech1 19:51 01/26/2021 Zofran ODT (Ondansetron HCl) [...] F. Pain level now: 07/30. --19:54 01/26/21 [facility] Tech 20:00 01/26/21. Departure time: late entry - 20:00 01/26/2021. Xavier Coma Scale: 15- eyes open- spontaneous (4); best verbal response- oriented (5); best motor response- obeys commands (6). Condition at departure: improved and stable. No learning barriers present. Discharge instructions provided and reviewed with the patient. Reviewed referral to a primary care physician for followup. Patient verbalized understanding. Written instructions provided in Slovak. The patient was discharged by the physician. She was discharged home and accompanied by spouse. She left ambulatory and via private vehicle. Spouse driving. --20:08 01/26/21 Vandana Rasheed R.N.Locked/Released at 01/26/2021 20:21 by Vandana Rasheed R.N. Name Value Range Interpretation Code Description Data Maribel rce(s) Supporting Document(s) ID Date Data Source [id number] 01/26/2021 12:00:[address] [facility] 1 Clinical Report - Physicians/Mid Levels [facility] Emergency Department [address] [place] [address] Phone #: ext- [phone] 01/26/2021 11:59 [id number] Sex: F : 1995 Age: 25y Arrived- [...] twice", 2 days ago and went to [facility] yesterday and was told she was dehydrated [...] daily. 2 Clinical Report - Physicians/Mid Levels [facility] Emergency Department [address] [place] [address] Phone #: ext- [phone] 01/26/2021 11:59 Patient: [...] 11.0) 3 Clinical Report - Physicians/Mid Levels [facility] Emergency Department [address] [place] [address] Phone #: ext- [phone] 01/26/2021 11:59 Patient: [...] Male GFR Interprentation 20-49 yrs >60 mL/min Umirqa91-32 yrs >56 mL/min Normal 60-69 yrs >49 mL/min Normal 70-79yrs>42 mL/min Normal 80 and above >35 mL/min Normal Female GFRInterpretation 20-39 yrs >60 mL/min Normal 40-49 yrs >58 mL/minNormal 50-59 yrs >51 mL/min Normal 60-69 yrs >45 mL/min Yqzdyr18-49 yrs >39 mL/min Normal 80 and above >32 mL/min NormalUA REFLEX TO UA CULTURE: (CRISTAL: 01/26/2021 12:15) ( MsgRcvd 01/26/2021 12:49) Final results 4 Clinical Report - Physicians/Mid Levels [facility] Emergency Department [address] [place] [address] Phone #: ext- [phone] 01/26/2021 11:59 Patient: [...] NEGATIVE (NORMAL: NEGAT { KIT LOT # [id number] ){ KIT EXP DATE 04/22/22 ){ PROCEDURAL CONTROL VALID ).PROGRESS AND PROCEDURESCourse of Care: pt is a 25 year old female with anxiety who states she has been having stomach pains.she further stated she has been evaluated recently at [facility] ED. she states her labs are nl. [...] encouraged her to f/u with pcp, GI,and tool and die repair. her pain was in her ruq and lower pelvis. Patient/family counseled. Disposition: Discharged. Condition: good and stable.CLINICAL IMPRESSION Acute right upper quadrant, epigastric, right lower quadrant and left lower quadrant abdominal pain. Gastroesophageal reflux disease. No esophagitis. 5 Clinical Report - Physicians/Mid Levels [facility] Emergency Department [address] [place] [address] Phone #: ext- [phone] 01/26/2021 11:59 Patient: [...] rce(s) Supporting Document(s) ID Date Data Source [id number] 01/26/2021 10:07:[address] [facility] [address] [facility] Emergency Department [address] [place] [address] Phone #: ext- [phone] 01/26/2021 22:04 Patient: MONIE PRUITT Sex: F : 1995 Age: 25yWEIGHT:47.6 kg (S) HEIGHT:64 inches (S) BMI:18.0ALLERGIES: No Known Drug AllergyCHIEF COMPLAINT: rectal bleedingDIAGNOSIS: Rectal hemorrhageLAB ORDERSOrder Description Priority Entered Acknowledged InitialedDIAGNOSTIC STUDY ORDERSOrder Description Priority Entered Acknowledged InitialedCT Abd PEL W/ IV STAT 22:15 01/26/2021 Ack'd: 22:17 22:43 Jacob,Nan Only Rukhsana Taylor MD; Ankita Patrick R.N.(Oxygen?(No))(IV?(Yes)) NOTES: labs done 8 hrs ago. 2nd visit to ed. initial visit for abd pain Reason for Study: GI BleedMEDICATION/IV/DRIP/FLUID ORDERSOrder Description Priority Entered Acknowledged InitialedIV NS 1000 mL 22:15 01/26/2021 22:40 Darnell,Bolus : Bolus 1000 Rukhsana Taylor MD; Ankita SmithmL (X1)GENERAL ORDERSOrder Description Priority Entered Acknowledged Initialed[Electronically signed by Ankita Patrick R.N. (00:20 01/27/2021)][Electronically signed by Rukhsana Taylor MD (08:11 01/27/2021)][Electronically locked by Ankita Patrick R.N. (00:20 01/27/2021)] Name Value Range Interpretation Code Description Data Maribel rce(s) Supporting Document(s) ID Date Data Source [id number] 01/26/2021 10:07:[address] [facility] [address] [facility] Emergency Department [address] [place] [address] Phone #: ext- [phone] 01/26/2021 22:04 Patient: [...] rce(s) Supporting Document(s) ID Date Data Source [id number] 01/26/2021 10:07:[address] [facility] [address] [facility] Emergency Department [address] [place] [address] Phone #: ext- [phone] 01/26/2021 22:04 Patient: MONIE PRUITT Sex: F : 1995 Age: 25yWeight: 47.6 kgHeight/Length: 64 inBMI: 18ALLERGIES: No Known Drug Allergy Date/Time Medication Administered Medication OrderedStart SODIUM CHLORIDE [IV] IV NS 1000 mL Bolus : Bolus [id number] 01/26/2021 Dose: IV Fluids mL (X1)Ankita Patrick R.N. Rate: 1000 mL/hr over 1 hour(s)---- Dispensed: 1000 mL bagStop Site: #1 right [id number] 01/26/2021Ankita Patrick RJeane Name Value Range Interpretation Code Description Data Maribel rce(s) Supporting Document(s) ID Date Data Source [id number] 01/26/2021 10:07:[address] [facility] [address] [facility] Emergency Department [address] [place] [address] Phone #: ext- [phone] 01/26/2021 22:04 Patient: [...] in the intestine (diverticulitis) [address] [facility] Emergency Department [address] [place] [address] Phone #: ext- [phone] 01/26/2021 22:04 Patient: [...] following occur: Loss of consciousness Vomiting blood [phone] [employer] [place] [address]. All rights reserved. This information is not intended as asubstitute for professional medical care. Always follow your healthcare professional's instructions. [address] [facility] Emergency Department [address] [place] [address] Phone #: ext- [phone] 01/26/2021 22:04 Patient: MONIE PRUITT Sex: F : 1995 Age: 25yYou have been given the following additional information:Lower GI Bleeding (Stable)(Electronically signed by Rukhsana Taylor MD 01/27/2021 08:11) Name Value Range Interpretation Code Description Data Maribel rce(s) Supporting Document(s) ID Date Data Source [id number] 01/26/2021 10:07:[address] [facility] 1 Clinical Report - Nurses [facility] Emergency Department [address] [place] [address] Phone #: ext- [phone] 01/26/2021 22:04 Patient: [...] cramping has gotten worse since she left.).Treatment [employer]:(zofran). --22:17 01/26/21 Ankita Patrick R.N.22:12 01/26/21. BP: [...] "Do you 2 Clinical Report - Nurses [facility] Emergency Department [address] [place] [address] Phone #: teh- [phone] 01/26/2021 22:04 Patient: MONIE PRUITT Sex: F [...] Patrick R.N. 3 Clinical Report - Nurses [facility] Emergency Department [address] [place] [address] Phone #: ext- [phone] 01/26/2021 22:04 Patient: MONIE PRUITT Sex: F [...] Patient verbalized understanding. Written instructions provided in Slovak. The patient was discharged by the physician. [...] rce(s) Supporting Document(s) ID Date Data Source [id number] 01/26/2021 10:07:[address] [facility] 1 Clinical Report - Physicians/Mid Levels [facility] Emergency Department [address] [place] [address] Phone #: ext- [phone] 01/26/2021 22:04 [id number]: [facility] : 1995 Age: 25y Arrived- [...] NOTES 2 Clinical Report - Physicians/Mid Levels [facility] Emergency Department [address] [place] [address] Phone #: ext- [phone] 01/26/2021 22:04 [id number] Sex: F : 1995 Age: 25y The [...] blood. 3 Clinical Report - Physicians/Mid Levels [facility] Emergency Department [address] [place] [address] Phone #: ext- [phone] 01/26/2021 22:04 Patient: [...] rce(s) Supporting Document(s) ID Date Data Source [id number] 01/26/2021 12:15:00 PM EDT [facility] ([facility]) Name Value Range Interpretation Code Description Data Maribel rce(s) Supporting Document(s) Source Laboratory test result ME WATSON ([facility]) Laboratory test finding (navigational concept) Laboratory test result [facility] ([facility]) URINALYSIS Spec [place] 1.025 1.001-1.030 [facility] ([facility]) Clarity Laboratory test result ME DENT ([facility]) Color Laboratory test result ME [place] ([facility]) pH 6 5-9 [facility] ([facility]) Glucose Laboratory test result [facility] ([facility]) Ketone 50 Abnormal (applies to non-numeric res ults) [facility] ([facility]) Bilirubin Laboratory test result ME DENT ([facility]) Nitrite Laboratory test result ME DENT ([facility]) Protein Laboratory test result [place] D[place] ([facility]) Urobilinogen Laboratory test result [facility] ([facility]) Blood Laboratory test result [facility] ([facility]) Leuk Est Laboratory test result [facility] ([facility]) Microscopic Laboratory test result M EDENT ([facility]) ID Date Data Source [id number] 01/26/2021 12:15:00 PM EDT [facility]) Name Value Range Interpretation Code Description Data Maribel rce(s) Supporting Document(s) HCG Urine Qual Laboratory test result [facility] ([facility]) HCG Urine QL Reenter Laboratory test result [facility] ([facility]) { KIT LOT # [id number] ) { KIT EXP DATE 04/22/22 ) { PROCEDURAL CONTROL VALID ) ID Date Data Source [id number] 01/26/2021 12:49:[address] [facility] Name Value Range Interpretation Code Description Data Amribel rce(s) Supporting Document(s) UA REFLEX TO UA CULTURE [facility] URINALYSIS SOURCE R [facility] Hospit al COLOR yellow NORMAL: Yellow [facility] CLARITY clear NORMAL: Clear [facility] Specific gravity of Urine by Test strip 1.025 1.001 - 1.030 [facility] pH 6 5 - 9 [facility] Gl[facility] [Mass/volume] in Urine by Test strip NORM NORMAL: [facility] Bilirubin.total [Presence] in Urine by Test strip NEG NORMAL: Negative [facility] Ketones [Presence] in Urine by Test strip 50 NORMAL: Negative A [facility] Protein [Mass/volume] in Urine by Test strip NEG NORMAL: Negat serena [facility] Nitrite [Presence] in Urine by Test strip NEG NORMAL: Negative [facility] BLOOD NEG NORMAL: Negative [facility] Leukocyte esterase [Presence] in Urine by Test strip NEG RUKHSANA L: Negative [facility] Urobilinogen [Mass/volume] in Urine by Test strip NOR less gonsalo n 1.0 mg/dL [facility] MICROSCOPIC Not Indicate [facility] ID Date Data Source [id number] 01/26/2021 12:48:[address] [facility] Name Value Range Interpretation Code Description Data Maribel rce(s) Supporting Document(s) HCG URINE QUAL NEGATIVE NORMAL: NEGATIVE [facility] HCG URINE QL REENTER NEGATIVE NORMAL: NEGATIVE [facility] { KIT LOT # [id number] ){ KIT EXP DATE 04/22/22 ){ PROCEDURAL CONTROL VALID ) ID Date Data Source [id number] 01/26/2021 12:12:00 PM EDT [facility] ([facility]) Name Value Range Interpretation Code Description Data Maribel rce(s) Supporting Document(s) Comprehensive Metabo Laboratory test result [facility] ([facility]) COMPREHENSIVE METABOLIC PANEL Potassium 3.7 meq/L 3.6-5.0 [facility] ([facility]) Sodium 141 meq/L 134-153 [facility] ([facility]) Chloride 104 meq/L 98-107 [facility] ([facility]) Glucose 93 mg/dL 70-99 [facility] ([facility]) Co2 26 meq/L 22-30 [facility] ([facility]) BUN/Creat 14 8-27 [facility] ([facility]) Creatinine 0.7 mg/dL 0.7-1.5 [facility] ([facility]) BUN 10 mg/dL 7-21 [facility] ([facility]) Total Protein 7.6 g/dL 6.3-8.2 [facility] ([facility]) Albumin 5.0 g/dL 3.9-5.0 [facility] ([facility]) A/G Ratio 1.9 0.8-2.0 [facility] ([facility]) Calcium 10.1 mg/dL 8.4-10.2 [facility] ([facility]) Globulin 2.6 GM/DL 2.4-3.2 [facility] ([facility]) Alkaline Phos 58 U/L 38-126 [facility] ([facility] Total Bili Laboratory test result 0.2-1.3 ME DENT ([facility]) Sgot/Ast 18 U/L 5-40 [facility] ([facility]) SGPT/Alt 13 U/L 7-56 [facility] ([facility]) Anion Gap 11.0 mmol/L 8.0-16.0 [facility] ([facility]) Non-Aa GFR Laboratory test result [place] DENT ([facility]) Afr Amer GFR Laboratory test result [facility] ([facility]) Male GFR Interprentation 20-49 yrs >60 mL/min [...] mL/min Normal Age 25 yrs [facility] ([facility]) ID Date Data Source [id number] 01/26/2021 12:12:00 PM EDT [facility] ([facility]) Name Value Range Interpretation Code Description Data Maribel rce(s) Supporting Document(s) WBC 5.7 10^3/uL 4.2-11.0 [facility] ([facility]) RBC 4.51 10^6/uL 4.20-5.40 [facility] ([facility]) CBC W/Automated Diff Laboratory test result [facility] ([facility]) COMPLETE BLOOD COUNT Hemoglobin 13.2 g/dL 12.0-16.0 [facility] ([facility]) Hematocrit 39.5 % 37.0-47.0 [facility] ([facility]) MCV 87.6 fL 81.0-101 [facility]) MCHC 33.4 g/dL 31.0-36.0 [facility] ([facility]) MCH 29.3 pg 27.0-34.0 [facility] ([facility]) Platelets 260 10^3/uL 150-450 [facility] ([facility]) MPV 10.3 fL 7.4-10.4 [facility] ([facility]) RDW 12.1 % 11.5-14.5 [facility] ([facility]) Orange 7.0 % 3.0-8.0 [facility] ([facility]) Neut 63.4 % 37.0-80.0 [facility] ([facility]) Lymph 26.7 % 25.0-40.0 [facility] ([facility]) Baso 0.3 % 0.0-2.5 [facility] ([facility]) Eos 2.4 % 0.0-7.0 [facility] ([facility]) %Ig 0.2 % 0.0-0.0 Above high normal [facility] ([facility]) %NRBC 0.0 % 0.0-0.0 [facility] ([facility]) #Neut 3.62 10^3/uL 2.00-6.90 [facility] ([facility]) #Orange 0.40 10^3/uL 0.00-0.90 [facility] ([facility]) #Lymph 1.53 10^3/uL 0.60-3.40 [facility] ([facility]) #Baso 0.02 10^3/uL 0.00-0.20 [facility] ([facility]) #Ig 0.01 10^3/uL 0.00-0.10 [facility] ([facility]) #Eos 0.14 10^3/uL 0.00-0.70 [facility] ([facility]) Manual Diff Laboratory test result Tom HARMON ([facility]) #NRBC 0.00 10^3/uL 0.00-0.00 ALEXYS ([facility]) RBC Morph Laboratory test result ME CHAUDHARI ([facility]) ID Date Data Source [id number] 01/26/2021 01:00:[address] [facility] Name Value Range Interpretation Code Description Data Maribel rce(s) Supporting Document(s) COMPREHENSIVE METABOLIC PANEL [facility] COMPREHENSIVE METABOLIC PANEL Sodium [Moles/volume] in Serum or Plasma 141 mEq/L 134 - 153 [facility] Potassium [Moles/volume] in Serum or Plasma 3.7 mEq/L 3.6 - 5.0 [facility] Chloride [Moles/volume] in Serum or Plasma 104 mEq/L 98 - 107 [facility] Carbon dioxide, total [Moles/volume] in Serum or Plasma 26 MEQ/L 22 - 30 [facility] Glucose [Mass/volume] in Serum or Plasma 93 MG/DL 70 - 99 [facility] BUN 10 MG/DL 7 - 21 [facility] al Creatinine [Mass/volume] in Serum or Plasma 0.7 MG/DL 0.7 - 1.5 [facility] BUN/CREAT 14 8 - 27 [facility] al Protein [Mass/volume] in Serum or Plasma 7.6 G/DL 6.3 - 8.2 [facility] Albumin [Mass/volume] in Serum or Plasma 5.0 G/DL 3.9 - 5.0 [facility] Globulin [Mass/volume] in Serum by calculation 2.6 GM/DL 2.4 - 3.2 [facility] A/G RATIO 1.9 0.8 - 2.0 [facility] Calcium [Mass/volume] in Serum or Plasma 10.1 MG/DL 8.4 - 10.2 [facility] Bilirubin.total [Mass/volume] in Serum or Plasma <0.7 MG/DL 0.2 - 1.3 [facility] Alkaline phosphatase [Enzymatic activity/volume] in Serum or Plasma 58 U/L 38 - 126 [facility] Aspartate aminotransferase [Enzymatic activity/volume] in Serum or Plasma 18 U/L 5 - 40 [facility] Alanine aminotransferase [Enzymatic activity/volume] in Seru m or Plasma 13 U/L 7 - 56 [facility] Anion gap 3 in Serum or Plasma 11.0 mmol/L 8.0 - 16.0 [facility] AGE 25 yrs [facility] Hospit al NON-AA GFR >60 mL/min [facility] Hosp ital AFR AMER GFR >60 mL/min [facility] spital Male GFR In terprentation [...] >32 mL/min Normal ID Date Data Source [id number] 01/26/2021 12:34:[address] [facility] Name Value Range Interpretation Code Description Data Maribel rce(s) Supporting Document(s) CBC W/AUTOMATED DIFF [facility] COMPLETE BLOOD COUNT Leukocytes [#/volume] in Blood by Automated count 5.7 10^3/uL 4.2 - [address] [facility] Erythrocytes [#/volume] in Blood by Automated count 4.51 10^6/uL 4. 20 - 5.40 [facility] Hemoglobin [Mass/volume] in Blood 13.2 g/dL 12.0 - 16.0 [facility] Hematocrit [Volume Fraction] of Blood by Automated count 39.5 % 3 7.0 - 47.0 [facility] Erythrocyte mean corpuscular volume [Entitic volume] by Auto mated count 87.6 fL 81.0 - 101 [facility] Erythrocyte mean corpuscular hemoglobin [Entitic mass] by Automated count 29.3 pg 27.0 - 34.0 [facility] Erythrocyte mean corpuscular hemoglobin concentration [Mass/volume] by Automated count 33.4 g/dL 31.0 - 36.0 [facility] Erythrocyte distribution width [Ratio] by Automated count 12.1 % 11.5 - 14.5 [facility] Platelets [#/volume] in Blood by Automated count 260 10^3/uL 150 - [address] [facility] Platelet mean volume [Entitic volume] in Blood by Automated count 10.3 fL 7.4 - 10.4 [facility] Neutrophils/100 leukocytes in Blood by Automated count 63.4 % 37. 0 - 80.0 [facility] Lymphocytes/100 leukocytes in Blood by Manual count 26.7 % 25.0 - 40.0 [facility] Monocytes/100 leukocytes in Blood by Automated count 7.0 % 3.0 - 8.0 [facility] Eosinophils/100 leukocytes in Blood by Automated count 2.4 % 0.0 - 7.0 [facility] Basophils/100 leukocytes in Blood by Automated count 0.3 % 0.0 - 2.5 [facility] %IG 0.2 % 0.0 - 0.0 H [facility] Hospit al %NRBC 0.0 % 0.0 - 0.0 [facility] al Neutrophils [#/volume] in Blood by Automated count 3.62 10^3/uL 2.00 - 6.90 [facility] Lymphocytes [#/volume] in Blood by Automated count 1.53 10^3/uL 0.60 - 3.40 [facility] Monocytes [#/volume] in Blood by Automated count 0.40 10^3/uL 0.00 - 0.90 [facility] Eosinophils [#/volume] in Blood by Automated count 0.14 10^3/uL 0.00 - 0.70 [facility] Basophils [#/volume] in Blood by Automated count 0.02 10^3/uL 0.00 - 0.20 [facility] #IG 0.01 10^3/uL 0.00 - 0.10 [facility] ospital #NRBC 0.00 10^3/uL 0.00 - 0.00 [facility] MANUAL DIFF NOT INDICATED [facility] RBC MORPH NOT INDICATED [facility] ID Date Data Source [id number] 01/25/2021 08:51:00 AM EDT [facility] ([facility]) Name Value Range Interpretation Code Description Data Maribel rce(s) Supporting Document(s) White Blood Count 9.2 10 4.0-10.0 Normal (applies to non-numeri c results) [facility] ([facility]) Red Blood Count 4.79 10 4.00-5.40 Normal (applies to non-numeric results) [facility] ([facility]) Hematocrit 42.1 % 36.0-47.0 Normal (applies to non-numeric resul ts) [facility] ([facility]) Hemoglobin 14.0 g/dL 12.0-15.5 Normal (applies to non-numeric resul ts) [facility] ([facility]) Mean Corpuscular Hemoglobin 29.2 pg 27.0-33.0 Norm al (applies to non-numeric results) [facility] ([facility]) Mean Corpuscular Volume 87.9 fl 80.0-96.0 Normal ( applies to non-numeric results) [facility] Mean Corpuscular HGB Conc 33.3 g/dL 32.0-36.5 Normal (applies to non-numeric results) [facility]) Red Cell Distribution Width 12.1 % 11.5-14.5 Norm al (applies to non-numeric results) [facility] ([facility]) Platelet Count, Automated 300 10 150-450 Normal (applies to non-numeric results) [facility] ([facility]) Orange % 5.3 % 2.0-8.0 Normal (applies to non-numeric resul ts) [facility] ([facility]) Lymph % 15.0 % 24.0-44.0 Below low normal [facility] ( [facility]) Neutrophils % 77.8 % 36.0-66.0 Above high normal MED[facility] NT ([facility]) Baso % 0.3 % 0.0-1.0 Normal (applies to non-numeric resul ts) [facility] ([facility]) Eos % 1.4 % 0.0-3.0 Normal (applies to non-numeric resul ts) [facility] ([facility]) Neutrophils # 7.1 10 1.5-8.5 Normal (applies to non-numeric re sults) [facility] ([facility]) Immature Granulocyte % 0.2 % 0-3.0 Normal (applies to non-n umeric results) [facility]) Nucleated Red Blood Cell % 0.0 % 0-0 Normal (applies to n on-numeric results) [facility] ([facility]) Lymph # 1.4 10 1.5-5.0 Below low normal [facility] ( [facility]) Eos # 0.1 10 0.0-0.5 Normal (applies to non-numeric resul ts) [facility] ([facility]) Orange # 0.5 10 0.0-0.8 Normal (applies to non-numeric resul ts) [facility] Baso # 0.0 10 0.0-0.2 Normal (applies to non-numeric resul ts) [facility]) ID Date Data Source [id number] 01/25/2021 08:51:00 AM EDT [facility] ([facility]) Name Value Range Interpretation Code Description Data Maribel rce(s) Supporting Document(s) Choriogonadotropin.beta subunit [Moles/volume] in Seru m or Plasma Laboratory test result Normal (applies to non-numeric results) [facility] ([facility]) GESTATIONAL AGE APPROXIMATE HCG RANGE (MIU/ML) - [...] monitoring the treatment of cancer patients. Siemens Brewster methodology. ID Date Data Source [id number] 01/25/2021 08:51:00 AM EDT [facility]) Name Value Range Interpretation Code Description Data Maribel rce(s) Supporting Document(s) Thyroid Stimulating Hormone 0.494 uIU/ML 0.358-3.740 Norm al (applies to non- numeric results) [facility] ([facility]) Free T4 1.07 ng/dL 0.76-1.46 Normal (applies to non-numeric resul ts) [facility] ID Date Data Source [id number] 01/25/2021 08:51:00 AM EDT [facility]) Name Value Range Interpretation Code Description Data Maribel rce(s) Supporting Document(s) Lipase [Enzymatic activity/volume] in Serum or Plasma 69 U/L 73-393 Below low normal [facility] ID Date Data Source [id number] 01/25/2021 08:51:00 AM EDT [facility]) Name Value Range Interpretation Code Description Data Maribel rce(s) Supporting Document(s) Glucose, Fasting 96 mg/dL 70-100 Normal (applies to non-numeric results) [facility] ([facility]) Creatinine For GFR 0.79 mg/dL 0.55-1.30 Normal (applies to non -numeric results) [facility] ([facility]) Blood Urea Nitrogen 10 mg/dL 7-18 Normal (applies to non-nume raf results) [facility] ([facility]) Glomerular Filtration Rate Laboratory test result Normal (applies to non- numeric results) [facility] <content>Units are mL/min/1.73 m2</content>
<content></content>
<content>Chronic Kidney Disease Staging per NKF:</content>
<content></content>
<content>Stage I & II GFR >=60 Normal to Mildly Decreased</content>
<content>Stage III GFR 30-59 Moderately Decreased</content>
<content>Stage IV GFR 15-29 Severely Decreased</content>
<content>Stage V GFR <15 Very Little GFR Left</content>
<content>ESRD GFR <15 on CHEMISTRY ASSOCIATE</content>
<content></content> Sodium Level 141 meq/L 136-145 Normal (applies to non-numeric res ults) [facility] ([facility]) Carbon Dioxide Level 29 meq/L 21-32 Normal (applies to non-num bi results) [facility] ([facility]) Potassium Serum 4.2 meq/L 3.5-5.1 Normal (applies to non-numeric results) [facility] ([facility]) Chloride Level 107 meq/L 98-107 Normal (applies to non-numeric r esults) [facility] ([facility]) Calcium Level 10.0 mg/dL 8.5-10.1 Normal (applies to non-numeric re sults) [facility] ([facility]) Anion Gap 5 meq/L 8-16 Below low normal [facility] ( [facility]) ID Date Data Source [id number] 01/25/2021 08:51:00 AM EDT [facility] Name Value Range Interpretation Code Description Data Maribel rce(s) Supporting Document(s) Ast/Sgot 15 U/L 7-37 Normal (applies to non-numeric resul ts) [facility]) Alkaline Phosphatase 62 U/L 45-117 Normal (applies to non-num bi results) [facility] ([facility]) Alt/SGPT 23 U/L 12-78 Normal (applies to non-numeric resul ts) [facility] ([facility]) Bilirubin,Direct 0.1 mg/dL 0.0-0.2 Normal (applies to non-numeric results) [facility] ([facility]) Bilirubin,Total 0.5 mg/dL 0.2-1.0 Normal (applies to non-numeric results) [facility] ([facility]) Total Protein 8.0 GM/DL 6.4-8.2 Normal (applies to non-numeric re sults) [facility] ([facility]) Albumin 4.4 GM/DL 3.2-5.2 Normal (applies to non-numeric resul ts) [facility] ([facility]) Albumin/Globulin Ratio 1.2 1.2-2.2 Normal (applies to non-n umeric results) [facility] ([facility]) ID Date Data Source [id number] 04/10/2020 09:24:00 AM EST [facility] ([facility]) Name Value Range Interpretation Code Description Data Maribel rce(s) Supporting Document(s) Free T4 0.84 ng/dL 0.76-1.46 [facility] ([facility]) Thyroid Stimulating Hormone 1.140 uIU/ML 0.358-3.740 [facility] ([facility]) ID Date Data Source [id number] 12/26/2019 02:28:00 PM EDT [facility] ([facility]) Name Value Range Interpretation Code Description Data Maribel rce(s) Supporting Document(s) Thyroperoxidase Ab [Units/volume] in Serum or Plasma 32.3 U/ML [facility] ([facility]) ID Date Data Source [id number] 12/26/2019 02:28:00 PM EDT [facility] ([facility]) Name Value Range Interpretation Code Description Data Maribel rce(s) Supporting Document(s) Thyroid Stimulating Hormone 0.752 uIU/ML 0.358-3.740 [facility] ([facility]) Free T4 1.01 ng/dL 0.76-1.46 [facility] ([facility]) Procedure Social History Code Duration Value Status Description Data Source(s ) Smoking 06/20/2020 12:00:00 AM EDT Patient is a former smoker completed Patient is a former smoker [facility] ([facility]) Vital Signs ID Date Data Source UNK Name Value Range Interpretation Code Description Data Source(s) Diastolic blood pressure 78 mm[Hg] 78 mm[Hg] [facility] Heart rate 78 /min 78 /min [facility] ([facility]) Respiratory rate 18 /min 18 /min [facility] ( [facility]) Body height 64.1 [in_i] 64.1 [in_i] [facility] 5'4.10" Body temperature 98.2 [degF] 98.2 [degF] [facility] ([facility]) Body weight 108.00 [lb_av] 108.00 [lb_av] [facility] ([facility]) Oxygen saturation in Arterial blood by Pulse oximetry 98 % 98 % [facility] ([facility]) [place] body weight 120 [lb_av] 120 [lb_av] [facility] ([facility]) Body mass index (BMI) [Ratio] 18.5 kg/m2 18.5 k g/m2 [facility] ([facility]) Systolic blood pressure 116 mm[Hg] 116 mm[Hg] M [facility] ([facility]) Systolic blood pressure 112 mm[Hg] 112 mm[Hg] [facility] ([facility]) Diastolic blood pressure 58 mm[Hg] 58 mm[Hg] [facility] ([facility]) Body height 64.1 [in_i] 64.1 [in_i] [facility] ([facility]) 5'4.10" Body weight 107.12 [lb_av] 107.12 [lb_av] [facility] ([facility]) Body mass index (BMI) [Ratio] 18.3 kg/m2 18.3 k g/m2 [facility] ([facility]) Heart rate 84 /min 84 /min [facility] ([facility]) Respiratory rate 18 /min 18 /min [facility] ( [facility]) Body temperature 98.3 [degF] 98.3 [degF] [facility] ([facility]) Oxygen saturation in Arterial blood by Pulse oximetry 98 % 98 % [facility] ([facility]) [place] body weight 120 [lb_av] 120 [lb_av] [facility] ([facility]) Body mass index (BMI) [Ratio] 18.8 kg/m2 18.8 k g/m2 [facility] ([facility]) Body temperature 98.8 [degF] 98.8 [degF] [facility] ([facility]) Respiratory rate 18 /min 18 /min [facility] ( [facility]) Heart rate 90 /min 90 /min [facility] ([facility]) [place] body weight 120 [lb_av] 120 [lb_av] [facility] ([facility]) Oxygen saturation in Arterial blood by Pulse oximetry 98 % 98 % [facility] ([facility]) Body weight 110.12 [lb_av] 110.12 [lb_av] [facility] ([facility]) Systolic blood pressure 104 mm[Hg] 104 mm[Hg] M [facility] ([facility]) Diastolic blood pressure 58 mm[Hg] 58 mm[Hg] [facility] ([facility]) Body height 64.1 [in_i] 64.1 [in_i] [facility] ([facility]) 5'4.10" Systolic blood pressure 100 mm[Hg] 100 mm[Hg] [facility] ([facility] ) Diastolic blood pressure 72 mm[Hg] 72 mm[Hg] [facility] ([facility] ) Heart rate 113 /min 113 /min [facility] ([facility] ) Body temperature 97.3 [degF] 97.3 [degF] [facility] ([facility] ) Body height 64.75 [in_i] 64.75 [in_i] [facility] ([facility] ) 5'4.75" Body weight 108.38 [lb_av] 108.38 [lb_av] [facility] ([facility] ) Body mass index (BMI) [Ratio] 18.2 kg/m2 18.2 k g/m2 [facility] ([facility] ) Oxygen saturation in Arterial blood by Pulse oximetry 98 % 98 % [facility] ([facility] ) Oxygen saturation in Arterial blood by Pulse oximetry 98 % 98 % [facility] ([facility] ) Body mass index (BMI) [Ratio] 17.1 kg/m2 17.1 k g/m2 [facility] ([facility] ) Systolic blood pressure 122 mm[Hg] 122 mm[Hg] [facility] ([facility] ) Diastolic blood pressure 70 mm[Hg] 70 mm[Hg] [facility] ([facility] ) Heart rate 113 /min 113 /min [facility] ([facility] ) Body temperature 97.1 [degF] 97.1 [degF] [facility] ([facility]) Body height 64.75 [in_i] 64.75 [in_i] [facility] ([facility]) 5'4.75" Body weight 102.25 [lb_av] 102.25 [lb_av] [facility] ([facility]) Diastolic blood pressure 70 mm[Hg] 70 mm[Hg] [facility] ([facility]) Systolic blood pressure 122 mm[Hg] 122 mm[Hg] [facility] ([facility]) Heart rate 68 /min 68 /min [facility] ([facility]) Body temperature 97.5 [degF] 97.5 [degF] [facility] ([facility]) Body height 64.75 [in_i] 64.75 [in_i] [facility] ([facility]) 5'4.75" Body weight 109.00 [lb_av] 109.00 [lb_av] [facility] ([facility] ) Body mass index (BMI) [Ratio] 18.3 kg/m2 18.3 k g/m2 [facility] ([facility] ) Diastolic blood pressure 60 mm[Hg] 60 mm[Hg] [facility] ([facility]) Body height 64.1 [in_i] 64.1 [in_i] [facility] ([facility]) 5'4.10" Systolic blood pressure 100 mm[Hg] 100 mm[Hg] M [facility] ([facility]) Body mass index (BMI) [Ratio] 18.2 kg/m2 18.2 k g/m2 [facility] ([facility]) Body weight 106.38 [lb_av] 106.38 [lb_av] [facility] ([facility]) Respiratory rate 18 /min 18 /min [facility] ( [facility]) Heart rate 97 /min 97 /min [facility] ([facility]) Oxygen saturation in Arterial blood by Pulse oximetry 99 % 99 % [facility] ([facility]) [place] body weight 120 [lb_av] 120 [lb_av] [facility] ([facility]) Body temperature 99.1 [degF] 99.1 [degF] [facility] ([facility])
[2021-01-31] MEDS ORDERED: NS 1,000 ML IV ONE (12:15)
[2021-01-31] MEDS ORDERED: ONDANSETRON 4MG/2ML VIAL IV ONE (12:15)
[2021-01-31] MEDS ORDERED: KETOROLAC 30 MG/ML 1ML VIAL IV ONE ×2 (12:15→14:00)
[2021-01-31 12:45] LABS: FREE T4 1.13 NG/DL (0.76-1.46)
[2021-01-31 12:46] LABS: AMPHETAMINES LEVEL URINE NEGATIVE (NEGATIVE); BARBITURATES URINE NEGATIVE (NEGATIVE); BENZODIAZEPINES URINE NEGATIVE (NEGATIVE); CANNABINOIDS URINE NEGATIVE (NEGATIVE); COCAINE METABOLITE URINE NEGATIVE (NEGATIVE); METHADONE URINE NEGATIVE (NEGATIVE); OPIATES URINE NEGATIVE (NEGATIVE); PHENCYCLIDINE URINE NEGATIVE (NEGATIVE)
--- NOTE | 2021-01-31 13:01 | REP ---
INDICATION: Abdominal Pain. COMPARISON: None. TECHNIQUE: Four views total FINDINGS: Supine and upright views of the abdomen show the intestinal gas pattern to be nonspecific. Gas and stool is seen throughout the colon within the rectosigmoid region. The organ silhouettes insofar as delineated appear unremarkable. No abdominal calcific densities are seen within the abdomen or pelvis. The accompanying single frontal view of the chest shows no free subdiaphragmatic air, cardiomegaly, infiltrates or effusions. IMPRESSION: Nonspecific intestinal gas pattern. <Electronically signed by Alejandro Ruano > 01/31/21 [id number]
[2021-01-31 13:43] LABS: RSV AMPLIFICATION NEGATIVE (NEGATIVE)
[2021-01-31] MEDS ORDERED: LORazepam 2 MG/ML VIAL IV STA (13:56)
[2021-01-31 16:13] VITALS: BP 118/56
== END 2021-01-31 16:26 | disposition home or self-care (01) ==
LOC: M ED 10:02
DX: F41.9 Anxiety disorder, unspecified (principal); R10.9 Unspecified abdominal pain; R19.7 Diarrhea, unspecified; R11.2 Nausea with vomiting, unspecified; K21.9 Gastro-esophageal reflux disease without esophagitis; E03.9 Hypothyroidism, unspecified; F17.200 Nicotine dependence, unspecified, uncomplicated; Z79.899 Other long term (current) drug therapy
CPT/HCPCS: 74021; 80047; 80048; 80076; 80307; 81001; 83690; 84439; 84443; 84702; 85025; 87086; 87631; 96361; 96374; 96375; 96376; 99283; J1885; J2060; J2405